=== PATIENT | female | born 1945 | race Caucasian/White ===

== ENCOUNTER → 2018-08-26 16:43 | Outpatient (CLI) | payer MEDICARE, SELFPAY ==
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
== END ==
PROVIDERS: PCP Family Medicine; Visit Provider Hospitalist
DX: M17.12 Unilateral primary osteoarthritis, left knee (principal)
CPT/HCPCS: 73562

== ENCOUNTER → 2018-09-11 07:11 | Outpatient (CLI) | payer MEDICARE, SELFPAY ==
[2018-09-11 08:54] LABS: Add Manual Diff / Slide Review NO; Basophils Absolute Auto 100 /uL (0-100); Eosinophils Absolute Auto 400 /uL (0-450); Eosinophils Percent Auto 5.5 % (2-4); Hematocrit 39.3 % (36-46); Hemoglobin 13.3 g/dL (12.0-16.0); Lymphocytes Absolute Auto 2800 /uL (1100-4500); Lymphocytes Percent Auto 37.2 % (25-40); Mean Corpuscular HGB Conc 33.7 % (30-36); Mean Corpuscular Hemoglobin 29.9 PG (26-34); Mean Corpuscular Volume 88.9 fL (80-100); Monocytes Absolute Auto 500 /uL (0-900); Monocytes Percent Auto 6.4 % (3-14); Neutrophils Absolute Auto 3700 /uL (1500-7000); Neutrophils Percent Auto 49.9 % (50-75); Platelet Count 232 X10^3/uL (150-400); Red Blood Cell Count 4.43 X10^6/uL (4.0-5.2); Red Cell Distribution Width 14.3 % (11.6-14.8); White Blood Cell Count 7.4 X10^3/uL (4.5-11.0)
[2018-09-11 09:24] LABS: Alanine Aminotransferase 23 IU/L (9-52); Albumin 4.3 g/dL (3.5-5.0); Albumin Globulin Ratio 1.7 (1.0-2.8); Alkaline Phosphatase 97 U/L (38-126); Aspartate Aminotransferase 24 IU/L (14-36); BUN Creatinine Ratio 24.4 (6-22); Bilirubin Total 0.4 mg/dL (0.2-1.3); Blood Urea Nitrogen 22 mg/dL (7-17); Calcium 8.8 mg/dL (8.4-10.2); Carbon Dioxide 26 mmol/L (22-32); Chloride 106 mmol/L (98-107); Cholesterol 158 mg/dL (140-199); Estimated Glomerular Filt Rate > 60.0 mL/min (>60); Globulin 2.6 g/dL (1.7-4.1); Glucose 108 mg/dL (80-110); HDL Cholesterol 65 mg/dL (40-60); HEMOLYSIS < 15 (0-50); LDL Cholesterol Calculated 69 mg/dL (<100); Potassium 4.2 mmol/L (3.4-5.1); Sodium 140 mmol/L (137-145); Total Protein 6.9 g/dL (6.3-8.2); Triglycerides 122 mg/dL (35-150)
[2018-09-11 09:56] LABS: Thyroid Stimulating Hormone 1.62 uIU/mL (0.47-4.68)
[2018-09-11 11:22] LABS: Creatinine Urine Random 110.6 mg/dL
[2018-09-11 11:27] LABS: Microalbumi Creatinin Ratio Ur 6.3 ug/mg CR (<30); Microalbumin Urine Random 0.7 mg/dL (0-1.6)
== END ==
PROVIDERS: PCP Family Medicine; Visit Provider Family Medicine
DX: E03.9 Hypothyroidism, unspecified (principal); E78.5 Hyperlipidemia, unspecified; I10 Essential (primary) hypertension
CPT/HCPCS: 36415; 80053; 80061; 82043; 82570; 84443; 85025

== ENCOUNTER → 2018-09-16 14:41 | Outpatient (CLI) | payer MEDICARE, SELFPAY ==
--- NOTE | 2018-09-16 14:42 | DI.RAD.S_ITS ---
PROCEDURE: XR HAND LT MIN 3V INDICATIONS: left hand pain, base of 5th finger TECHNIQUE: 3 views of the hand(s) acquired. COMPARISON: None. FINDINGS: Bones: Impacted mildly displaced fracture of the distal fifth metacarpal with palmar angulation of the distal fragment. Chronic diffuse interphalangeal joint aeration most pronounced at DIP joint of the middle finger and PIP joint of the ring finger. Bowing deformity suggestive of central erosions, potential erosive osteoarthritis. Soft tissues: No suspicious soft tissue calcifications. 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 Please correlate clinically. Dictated by: Chepe Gee M.D. on 09/16/2018 at 16:11 Approved by: Chepe Gee M.D. on 09/16/2018 at 16:14
== END ==
PROVIDERS: PCP Family Medicine; Visit Provider Family Medicine
DX: M79.642 Pain in left hand (principal); S62.397A Other fracture of fifth metacarpal bone, left hand, initial encounter for closed fracture; M19.042 Primary osteoarthritis, left hand; X58.XXXA Exposure to other specified factors, initial encounter
CPT/HCPCS: 73130

== ENCOUNTER 2018-09-24 15:15 | Outpatient (RCR) | payer MEDICARE, SELFPAY ==
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
--- NOTE | 2018-09-04 16:23 | PT.OPPOC ---
Current Diagnoses Unspecified injury of left lower leg, initial encounter (09/04/18) Provider Visit Care Team Role Provider Type Mere Louis MD Primary Care Provider Physician Specialty: Family Practice Address: [address] [place] [address], [id number] Email: [email or web address] Sanjuana Atkinson MD Attending Provider Physician Specialty: Internal Medicine Address: [address] [place] [address], [id number] Email: Plan Of Care PT-OP-T Assessment and Plan Start: 09/01/18 12:08 Freq: Status: Active Protocol: Document 09/04/18 09:39 LRN (Rec: 09/04/18 10:34 LRN [id number]) Physical Therapy Assessment Goals ROM Impairment decreased knee flexion/ knee extension Automobile Sales Representative Goal (LTG) Pt will be able to reach 2degree for L TKE and 130 degrees for L knee flexion to optimize pt's gait efficiency LTG Duration 12 weeks. ADLs Impairment unable to christina/doff sock/ shoe on L foot. Mcfp Goal (LTG) Pt will be able to christina/ doff her sock/ shoe on L foot in seated position. LTG Duration 8 weeks Gait Impairment impaired gait with 4WW Automobile Sales Representative Goal (LTG) Pt will be able to amb without any AD for a mile in symptoms free. LTG Duration 12 weeks LEFs Impairment low LEFS score Automobile Sales Representative Goal (LTG) Pt will improve her LEFS score to 0% impairment to improve her quality of life LTG Duration 12 weeks Assessment Summary Assessment Pt is s/p fall on her L knee and wrist. Pt has possible bone contusion. Pt has L medial tibia pain inferior to the tibial plateau with forced axial pressure on the L heel indicating possible bony change. Ecchymosis of L monk is resolving with less palpable pain evident. Pt has increased pain complaints at the L knee, probably due to increased activity with water exercises. Pt has pain with weightbearing through the LLE, no complaints of pain in sitting. Will have to monitor closely for possible hairline tibial fracture symptoms. Pt will benefit from the addition of modalities to her Plan of care to decrease pain and inflammation and improve mobility and stability at the L knee and therefore safety with gait. Physical Therapy Plan Frequency and Duration Frequency of Treatment 2x/Week Duration of Treatment 12 Plan of Care Start Date 09/01/18 Plan of Care End Date 12/01/18 Therapeutic Interventions Therapeutic Interventions Aquatic Therapy Balance Training Gait Training Home Exercise Program Joint Mobilizations Manual Therapy Neuromuscular Re-education Patient/Caregiver Education Self-Care/Home Management Soft Tissue Mobilization Taping Therapeutic Activities Therapeutic Exercises Modalities Cold Pack/Ice Massage Electric Stimulation Hot Packs Iontophoresis Ultrasound Next Visit Focus/Plan Next Note Type Treatment Note Next Visit Plan Assess response to K-tape and use of LAWANDA wrap for edema control. Biodex or upright bike Assess ROM knee ROM training (TKE, knee flexion). As tolerated: single leg stance /balance training gait training. Add use of modalities when POC is returned from physician. Plan of Care Dates Plan of Care Start Date 09/01/18 Plan of Care End Date 12/01/18 Please Sign and Return: I have reviewed this Plan of Care and certify that the skilled therapy services above are required to meet the patient?s needs. Physician Signature Date Printed Name and Credentials Clinical Instructor Signature Printed Name and Credentials
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
== END 2018-09-25 09:02 | disposition home or self-care (01) ==
LOC: PHYS 15:15
PROVIDERS: PCP Family Medicine; Visit Provider Hospitalist
DX: S89.92XA Unspecified injury of left lower leg, initial encounter (principal)
CPT/HCPCS: 97110; 97140; 97161; 97535

== ENCOUNTER → 2018-10-08 08:54 | Outpatient (CLI) | payer MEDICARE, SELFPAY ==
--- NOTE | 2018-10-08 08:56 | DI.MG.S_ITS ---
BILATERAL DIGITAL SCREENING MAMMOGRAM 3D/2D WITH CAD: 10/08/2018 CLINICAL: Routine screening. Comparison is made to exams dated: 09/08/2017 mammogram - Located [facility], 05/31/2016 mammogram, 04/28/2015 mammogram, 04/11/2014 mammogram, and 03/30/2013 mammogram - [facility]. The tissue of both breasts is heterogeneously dense. This may lower the sensitivity of mammography. Current study was also evaluated with a Computer Aided Detection (CAD) system. There is an irregular mass with a spiculated margin in the right breast at 12 o'clock middle to posterior depth. Finding is best noted on tomographic CC slice 47 and MLO slice 49. There are a grouped calcifications in the left breast superior lateral quadrant middle depth. IMPRESSION: INCOMPLETE: NEEDS ADDITIONAL IMAGING EVALUATION 1) The irregular spiculated mass in the right breast at 12 o'clock middle to posterior depth is indeterminate. Additional views with possible ultrasound are recommended. 2) The grouped calcifications in the left breast superior lateral quadrant middle depth are indeterminate. Magnification views as well as additional views with possible ultrasound are recommended. This exam was interpreted at Station ID: [id number]. NOTE: For mammograms, a report in lay terms will be sent to the patient. Approximately 15% of breast malignancies will not be visualized mammographically. In the management of a palpable breast mass, a negative mammogram must not discourage biopsy of a clinically suspicious lesion. Electronically Signed By: Jt Grande M.D. ecl/:10/08/2018 13:18:29 letter sent: Additional Imaging Needed ACR BI-RADS Category 0: Incomplete [id number]
== END ==
PROVIDERS: PCP Family Medicine; Visit Provider Family Medicine
DX: Z12.31 Encounter for screening mammogram for malignant neoplasm of breast (principal)
CPT/HCPCS: 77063; 77067

== ENCOUNTER → 2018-10-22 14:11 | Outpatient (CLI) | payer MEDICARE, SELFPAY ==
--- NOTE | 2018-10-22 14:12 | DI.MG.S_ITS ---
BILATERAL DIGITAL DIAGNOSTIC MAMMOGRAM 3D/2D WITH ADDITIONAL VIEWS: 10/22/2018 CLINICAL: Additional evaluation requested from prior study. Comparison is made to exams dated: 10/08/2018 mammogram and 09/08/2017 mammogram - [facility]. The tissue of both breasts is heterogeneously dense. This may lower the sensitivity of mammography. There is an irregular low density mass with a spiculated margin in the right breast at 12 o'clock middle depth. This persists in additional views. There is architectural distortion associated with the mass. There are grouped amorphous coarse calcifications in the left breast at 12 o'clock middle depth. There is architectural distortion associated with the calcifications. There also is an irregular asymmetry with an obscured margin in the left breast at 12 o'clock middle depth. No other significant masses or calcifications are seen in either breast. IMPRESSION: INCOMPLETE: NEEDS ADDITIONAL IMAGING EVALUATION The irregular low density mass in the right breast at 12 o'clock middle depth is indeterminate. An ultrasound is recommended. This was performed immediately following this exam. The grouped amorphous coarse calcifications and irregular asymmetry in the left breast at 12 o'clock middle depth are indeterminate. An ultrasound is recommended. This was performed immediately following this exam. This exam was interpreted at Station ID: [id number]. NOTE: For mammograms, a report in lay terms will be sent to the patient. Approximately 15% of breast malignancies will not be visualized mammographically. In the management of a palpable breast mass, a negative mammogram must not discourage biopsy of a clinically suspicious lesion. Electronically Signed By: Gale wiley/:10/22/2018 17:17:18 ACR BI-RADS Category 0: Incomplete [id number]
--- NOTE | 2018-10-22 14:12 | DI.US.S_ITS ---
ULTRASOUND OF LEFT BREAST: 10/22/2018 CLINICAL: Additional evaluation requested from prior study. Comparison is made to exams dated: 10/22/2018 mammogram, 10/08/2018 mammogram, and 09/08/2017 mammogram - [facility]. Color flow and real-time ultrasound of the left breast were performed. Camacho scale images of the real-time examination were reviewed. There is 1.4 cm x 1.3 cm x 1.2 cm irregular mass with an angular margin in the left breast at 12 o'clock posterior depth 6 cm from the nipple. This irregular mass is hypoechoic and heterogeneously echogenic with an echogenic boundary. This correlates with mammography findings of asymmetry. Color flow imaging demonstrates that there is increased vascularity. There also is 4.9 cm x 0.3 cm x 0.4 cm lymph node with uniform cortical thickening in the left axillary tail. This lymph node displays fatty hilum. Color flow imaging demonstrates that there is no increase in vascularity. IMPRESSION: SUSPICIOUS OF MALIGNANCY The 1.4 cm x 1.3 cm x 1.2 cm irregular mass in the left breast at 12 o'clock posterior depth is at an intermediate suspicion for malignancy. An ultrasound guided biopsy is recommended. The 4.9 cm x 0.3 cm x 0.4 cm lymph node with uniform cortical thickening in the left axillary tail is at a low suspicion for malignancy. An ultrasound guided biopsy is recommended. Findings and recommendations were discussed with the patient by Dr Gordon at time of exam. This exam was interpreted at Station ID: [id number]. Electronically Signed By: Gale wiley/:10/22/2018 17:28:28 letter sent: Biopsy Required Ultrasound BI-RADS: 4b Suspicious abnormality - intermediate suspicion of malignancy
--- NOTE | 2018-10-22 14:12 | DI.US.S_ITS ---
ULTRASOUND OF RIGHT BREAST AND AXILLA: 10/22/2018 CLINICAL: Additional evaluation requested from prior study. Comparison is made to exams dated: 10/22/2018 mammogram, 10/08/2018 mammogram, and 09/08/2017 mammogram - [facility]. Color flow and real-time ultrasound of the right breast axilla were performed. Camacho scale images of the real-time examination were reviewed. There is 0.7 cm x 0.6 cm x 0.9 cm irregular mass with a spiculated margin in the right breast at 12 o'clock middle depth 7 cm from the nipple. This irregular mass is hyperechoic and heterogeneously echogenic with posterior acoustic shadowing. This correlates with mammography findings. There is associated architectural distortion. Color flow imaging demonstrates that there is increased vascularity. No abnormalities were seen sonographically in the right axilla. IMPRESSION: SUSPICIOUS OF MALIGNANCY The 0.7 cm x 0.6 cm x 0.9 cm irregular mass in the right breast is at a moderate suspicion for malignancy. An ultrasound guided biopsy is recommended. Findings and recommendations were discussed with the patient by Dr Gordon at time of exam. This exam was interpreted at Station ID: [id number]. Electronically Signed By: Gale wiley/:10/22/2018 17:22:12 letter sent: Biopsy Required Ultrasound BI-RADS: 4c Suspicious abnormality - moderate concern but not classic for malignancy
== END ==
PROVIDERS: PCP Family Medicine; Visit Provider Family Medicine
DX: R92.8 Other abnormal and inconclusive findings on diagnostic imaging of breast (principal); N63.10 Unspecified lump in the right breast, unspecified quadrant; N63.20 Unspecified lump in the left breast, unspecified quadrant
CPT/HCPCS: 76642; 77066; G0279

== ENCOUNTER 2018-10-29 14:08 | Day surgery (SDC) | payer MEDICARE, SELFPAY ==
[2018-10-29] VITALS (7 sets, daily range): BP systolic 114–138; BP diastolic 60–94; PULSE 64–87; RESP 14–16; TEMP 36.1–37.2; O2SAT 95–99; BMI 31.1
[2018-10-29] MEDS: SODIUM CHLORIDE 0.9% 1,000 ML 200 ML IV (14:44)
--- NOTE | 2018-10-29 15:05 | PM.HP.1 ---
History of Present Illness Date Patient Seen: 10/29/18 Time Patient Seen: 15:05 Chief complaint: [id number] Narrative: 73yo F for low risk screening colonoscopy. Last around 7-8 years ago, does not recall findings of polyps or any issues. Was getting every 5 years at some point due to brother having polyps but no CRC in family. No new or alarm symptoms in patient. Patient History Medical History Anxiety (Chronic ~1994) Depression (Chronic) Osteoarthritis (Chronic ~2004) Osteopenia (Chronic ~2007) Chicken pox (Resolved ~1951) Plantar warts (Resolved ~1954) Surgical History Anesthesia (Resolved) Status post cholecystectomy (~2003) Status post hysterectomy (~1991) Family History Father High cholesterol Mother Emphysema lung Social History marital status: number of children: 2 household members: none lives independently: Yes caregiver/support person: No housing: house Smoking Status: Never smoker second hand exposure: No alcohol intake: current substance use type: does not use Family & Social History Family History Father High cholesterol Mother Emphysema lung Social History: household members none lives independently Yes caregiver/support person No Tobacco & Substance use: Smoking Status Never smoker alcohol intake current Meds Home Medications Medication Instructions Recorded Confirmed Type BIOTIN/CA/CA PANTOTHENATE/CR3 1 tab PO Q DAY #0 04/08/11 10/29/18 History (CENTRUM SILVER) IBUPROFEN (#IBUPRIN) 200 mg PO PRN #0 04/08/11 10/29/18 History MELATONIN (#MELATONIN) 1 mg PO HS #0 12/16/11 10/29/18 History VITAMIN D (Vitamin D3) 1,000 unit PO QDAY #0 05/07/12 10/29/18 History amitriptyline 10 mg tablet 10 mg PO HS #90 tab 09/16/18 10/29/18 Rx atorvastatin 10 mg tablet 10 mg PO HS #90 tab 09/16/18 10/29/18 Rx levothyroxine 88 mcg tablet 88 mcg PO QAM #90 tab 09/16/18 10/29/18 Rx metoprolol succinate ER 25 mg 25 mg PO QDAY #90 tab 09/16/18 10/29/18 Rx tablet,extended release 24 hr omeprazole 40 mg capsule,delayed 40 mg PO QDAY #90 cap 09/16/18 10/29/18 Rx release sertraline 50 mg tablet 50 mg PO DAILY #90 tab 09/16/18 10/29/18 Rx lorazepam [Ativan] 0.5 mg PO QDAY PRN 10/29/18 10/29/18 History Allergies Allergy/AdvReac Type Severity Reaction Status Date / Time naproxen [From ALEVE] Allergy Mild syncope Verified 10/29/18 14:34 episodes Review of Systems Constitutional Constitutional: Reports as per HPI Exam Vital Signs (past 8 hours): - 10/29/18 14:44 Temperature 99.0 F Pulse Rate 87 Respiratory Rate 15 Blood Pressure 134/77 Pulse Oximetry 96 Oxygen Delivery Method Room Air Narrative Exam Narrative: AAO, NAD, overweight female EOMI, MMM, no scleral icterus unlabored RA soft, nt/nd MAEW visible skin dry and intact Assessment & Plan (1) Screening for colorectal cancer: Current visit: Yes Status: Acute Assessment & Plan narrative: - low risk screening colonoscopy --> all R/B/A discussed and pt wishes to proceed
[2018-10-29] MEDS: fentaNYL 250 MCG/5 ML INJ IV (15:37)
[2018-10-29] MEDS: MIDAZOLAM 5 MG/5 ML VIAL IV (15:37)
--- NOTE | 2018-10-29 15:55 | PM.OP.ENDO ---
Operative Date/Time/Diagnoses Date of procedure: 10/29/18 Time of procedure: 15:55 Pre-op diagnosis: Screening for colorectal cancer Post-op diagnosis: same Procedure & Clinicians Study performed: Low risk screening colonoscopy Same procedure as scheduled: Yes Indications: 73yo F for low risk screening colonoscopy. Surgeon: Radha Baker Procedure Notes SCOAP/Timeout: 1512 Procedure in detail: After obtaining informed consent, the patient was brought to the GI suite and placed in the left lateral decubitus position on the examination table. After placement of appropriate monitors, the patient was given incremental doses of Versed and Fentanyl until an appropriate level of sedation was achieved. A time out was held per SCOAP protocol. A pediatric scope was used from the start due to patient's history of hysterectomy. A digital rectal examination was performed and did not reveal any masses or obstructing lesions. The colonoscope was gently passed into the patient's anus and the entire colon navigated to the level of the cecum with minimal difficulty. Prep was adequate. Once in the cecum, the scope was slowly withdrawn being sure to go before and beyond all mucosal folds and prominences as able to get a thorough examination. No masses or polyps are noted. No other remarkable findings. At the level of the rectal vault, the scope was retroflexed and the internal anal canal was examined. The scope was straightened and air aspirated from the colon. The instrument was removed from the patient's body and the procedure was concluded. The patient was allowed to awaken from sedation without difficulty and taken to the post-anesthesia care unit in good condition. Scope withdrawal time: 10 min Sedation minutes: 33 Specimen(s): none sent Complications: none Impression: normal colonoscopy Recommendations: Colonscopy in 10 years Follow up: as needed Disposition: PACU
== END 2018-10-29 16:36 | disposition home or self-care (01) ==
PROVIDERS: PCP Family Medicine; Visit Provider Surgery
PROC: 0DJD8ZZ Inspection of Lower Intestinal Tract, Via Natural or Artificial Opening Endoscopic (ICD-10-PCS; CPT 45378; principal; 2018-10-29 15:00)
DX: Z12.11 Encounter for screening for malignant neoplasm of colon (principal)
CPT/HCPCS: G0121; 99152; 99153; J2250; J3010

== ENCOUNTER → 2018-10-30 12:36 | Outpatient (CLI) | payer MEDICARE, SELFPAY ==
--- NOTE | 2018-10-30 | PATH_ITS ---
[facility] Accession Number: [id number] . 01 Material submitted: . breast - RIGHT BREAST MASS 12:00 . 01 Clinical history: . RIGHT BREAST MASS 12:00 7CM FROM NIPPLE . 02 Diagnosis: Right Breast, Mass at 12 o'clock, Core Needle Biopsies: Invasive mammary carcinoma with the following features: 1. Darrin grade 1 of 3 (intermediate tubule formation, low nuclear pleomorphism, low mitotic rate). 2. Greatest linear extent: 2 mm. 3. 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 4. Microcalcifications: Present in association with invasive carcinoma. 5. Lymph-vascular invasion: Not identified. 6. Prognostic markers: Will be performed and the results reported as an addendum. MRV/11/02/2018 . 02 Comment: As part of routine billing and quality technician, Dr. Russell also reviewed this case and agrees with the diagnosis. Dr. Peters called Dr. Louis to discuss results on 11/02/2018. . 02 Electronically signed: . Radha Peters MD, Pathologist NPI- [id number] . 01 Gross description: . Received one formalin-filled container labeled with the patient's name and designated right breast mass 12 o'clock 7 cm from nipple. The specimen is received with a plastic filter in the container, sample loose in container and consists of multiple fragments of tissue and blood which aggregate to 2.0 x 2.0 x 0.2 cm. The specimen is filtered, wrapped, and entirely submitted in one cassette. Collection date: 10/30/2018. Collection time per container: 2:04 pm. Total fixation time: 12 hours up to 24. ([id number]) /FRR . 02 Pathologist provided ICD-10: C50.911 . 02 CPT . 081174, U47886, C04588 Performed at: 01 [facility] [address] [place] [address], [place], [place] [id number] MD Amos Bangura MD Phone: [phone] Performed at: 02 [facility] [address] [place], [place] [id number] MD Radha Peters MD Phone: [phone]
--- NOTE | 2018-10-30 | DI.US.S_ITS ---
ULTRASOUND OF LEFT BREAST AND AXILLA: 10/30/2018 CLINICAL: Patient came in today for ultrasound biopsy of left breast mass 12:00 6cm from nipple. Mass not visible, biopsy canceled. Patient came in today for ultrasound biopsy of left axillary node biopsy. Node not vislble, biopsy canceled. Comparison is made to exams dated: 10/22/2018 ultrasound, 10/22/2018 mammogram, 10/08/2018 mammogram, 09/08/2017 mammogram - [facility], and 05/31/2016 mammogram - [facility]. Color flow and real-time ultrasound of the left breast axilla were performed on the areas of interest. Camacho scale images of the real-time examination were reviewed. The breast tissue is homogeneous fibroglandular in the left breast. In the axillary tail/axilla region of the left breast an area of suspected enlarged lymph note is found to not represent a lymph node, and the anticipated biopsy for today in that area was cancelled. At the 12:00 area of the left breast no lesion was found in the region of prior US concern 10/22/18. Anticipated biopsy in this area was cancelled. No abnormalities were seen sonographically in the left breast or the left axilla. IMPRESSION: NEGATIVE There is no sonographic evidence of malignancy. No left sided axillary node enlargement is present. Also, no lesion is present at the 12:00 position 6 cm from the nipple in the second area of previous left sided sonographic concern. This exam was interpreted at Station ID: [id number]. Electronically Signed By: Alexy Norman M.D. [facility]/:10/30/2018 16:27:33 Ultrasound BI-RADS: 1 Negative
--- NOTE | 2018-10-30 | DI.MG.S_ITS ---
UNILATERAL RIGHT DIGITAL DIAGNOSTIC MAMMOGRAM POST-NEEDLE BIOPSY: 10/30/2018 CLINICAL: Right breast mass. Comparison is made to exams dated: 10/22/2018 ultrasound, 10/22/2018 mammogram, and 10/08/2018 mammogram - [facility]. The tissue of right breast is heterogeneously dense. This may lower the sensitivity of mammography. There is a marker clip in the appropriate position in the right breast at 11 o'clock middle depth. This marker clip placement is at the biopsy site. IMPRESSION: POST PROCEDURE MAMMOGRAM FOR MARKER PLACEMENT There was a successful marker clip placement in the right breast middle depth. This exam was interpreted at Station ID: [id number]. NOTE: For mammograms, a report in lay terms will be sent to the patient. Approximately 15% of breast malignancies will not be visualized mammographically. In the management of a palpable breast mass, a negative mammogram must not discourage biopsy of a clinically suspicious lesion. Electronically Signed By: Alexy Norman M.D. sdh/:10/30/2018 16:31:13 ACR BI-RADS Category Post-procedure mammogram for marker placement
--- NOTE | 2018-10-30 13:03 | DI.US.S_ITS ---
ULTRASOUND GUIDED BIOPSY RIGHT BREAST USING VACUUM DEVICE WITH MARKING DEVICE INSERTED AND POST MAMMOGRAPHIC IMAGIN10/30/2018 CLINICAL: Right breast mass. PATIENT CONSENT: Risks (minor bleeding, infection, vasovagal reaction and repeat procedure), benefits and alternatives were explained to the patient and written informed consent was obtained. Correlation is made to exams dated: 10/22/2018 ultrasound, 10/22/2018 mammogram, 10/08/2018 mammogram, and 09/08/2017 mammogram - [facility]. An ultrasound guided biopsy using real-time ultrasound was performed for the concerning 0.5 cm x 0.4 cm x 0.6 cm circumscribed irregular shaped mass located in the right breast at 11 o'clock middle depth. This was described on the previous ultrasound report. The skin was prepped in the usual manner. Local anesthetic was administered to the access site. A skin ector was made in the breast. The abnormality was approached from the lateral aspect. A 13 gauge biopsy needle was placed adjacent to the abnormality under ultrasound guidance. Once the needle was documented to be in the correct location, five specimens were obtained using the Mammotome biopsy system. The patient received additional local anesthetic during the procedure. A Vision marker clip was inserted into the biopsy cavity. A skin closure strip and a sterile dressing were applied to the access site. Post procedure mammographic imaging demonstrates the location device at the targeted area and partial removal of the abnormality. The specimens were sent to the laboratory for pathological analysis. IMPRESSION: ULTRASOUND GUIDED BIOPSY MALIGNANT Ultrasound guided biopsy of the 0.5 cm x 0.4 cm x 0.6 cm mass in the right breast at 11 o'clock middle depth was successful. Pathology indicates malignant invasive mammary carcinoma with micro-calcifications present. Pathology results are concordant with imaging findings. This exam was interpreted at Station ID: [id number]. Alexy crespo,jacinto/:11/05/2018 14:12:26
== END ==
PROVIDERS: PCP Family Medicine; Visit Provider Family Medicine
DX: C50.411 Malignant neoplasm of upper-outer quadrant of right female breast (principal); N63.20 Unspecified lump in the left breast, unspecified quadrant; Z17.0 Estrogen receptor positive status [ER+]
CPT/HCPCS: 19083; 76642; 77065

== ENCOUNTER → 2019-05-21 09:37 | Outpatient (CLI) | payer MEDICARE, SELFPAY | PROVIDERS: PCP Family Medicine; Visit Provider Family Medicine | DX: M85.88 Other specified disorders of bone density and structure, other site (principal); Z78.0 Asymptomatic menopausal state; E07.9 Disorder of thyroid, unspecified; Z85.3 Personal history of malignant neoplasm of breast; Z90.722 Acquired absence of ovaries, bilateral; Z82.62 Family history of osteoporosis | CPT/HCPCS: 77080 ==

== ENCOUNTER → 2020-01-20 08:54 | Outpatient (CLI) | payer MEDICARE, SELFPAY ==
[2020-01-20 10:30] LABS: Creatinine Urine Random 208.4 mg/dL
[2020-01-20 10:35] LABS: Microalbumi Creatinin Ratio Ur 18.2 ug/mg CR (<30); Microalbumin Urine Random 3.8 mg/dL (0-1.6)
[2020-01-20 13:28] LABS: Alanine Aminotransferase 33 IU/L (<35); Albumin 3.9 g/dL (3.5-5.0); Albumin Globulin Ratio 1.6 (1.0-2.8); Alkaline Phosphatase 68 U/L (38-126); Aspartate Aminotransferase 32 IU/L (14-36); BUN Creatinine Ratio 16.8 (6-22); Bilirubin Total 0.5 mg/dL (0.2-1.3); Blood Urea Nitrogen 17 mg/dL (7-17); Calcium 8.8 mg/dL (8.4-10.2); Carbon Dioxide 28 mmol/L (22-32); Chloride 104 mmol/L (98-107); Cholesterol 150 mg/dL (140-199); Estimated Glomerular Filt Rate 53.6 mL/min (>60); Globulin 2.4 g/dL (1.7-4.1); Glucose 96 mg/dL (80-110); HDL Cholesterol 74 mg/dL (40-60); HEMOLYSIS < 15 (0-50); LDL Cholesterol Calculated 48 mg/dL (<100); Potassium 4.3 mmol/L (3.4-5.1); Sodium 138 mmol/L (137-145); Total Protein 6.3 g/dL (6.3-8.2); Triglycerides 139 mg/dL (35-150)
[2020-01-20 13:54] LABS: Thyroid Stimulating Hormone 0.905 uIU/mL (0.47-4.68)
== END ==
PROVIDERS: PCP Family Medicine; Referring Provider Family Medicine; Visit Provider Family Medicine
DX: E03.9 Hypothyroidism, unspecified (principal); I10 Essential (primary) hypertension
CPT/HCPCS: 36415; 80053; 80061; 82043; 82570; 84443

== ENCOUNTER → 2020-07-04 10:43 | Outpatient (CLI) | payer MEDICARE, SELFPAY ==
--- NOTE | 2020-07-04 10:44 | DI.US.S_ITS ---
PROCEDURE: US CAROTID DOPPLER BI INDICATIONS: pulsing right ear TECHNIQUE: Color and pulse Doppler interrogation was performed of both carotid systems, with image documentation and velocity measurements. COMPARISON: [facility], CT, HEAD WITHOUT CONTRAST, 10/07/2016, 4:42. FINDINGS: Stenosis calculations are based on SRU (Society of Radiologists in Ultrasound) criteria. Right side: Brachial blood pressure: 134/78 mm Hg. Common carotid artery peak systolic velocity: 104 cm/sec. Internal carotid artery peak systolic velocity: 94 cm/sec. Internal carotid artery end diastolic velocity: 32 cm/sec. External carotid artery peak systolic velocity: 91 cm/sec. ICA/CCA peak systolic ratio: 0.9 Camacho scale imaging description: No significant abnormality is seen. Percent internal carotid artery stenosis: Less than 50% by velocity criteria. Vertebral artery: Flow direction is antegrade. Left side: Brachial blood pressure: 133/81 mm Hg. Common carotid artery peak systolic velocity: 90 cm/sec. Internal carotid artery peak systolic velocity: 243 cm/sec. Internal carotid artery end diastolic velocity: 79 cm/sec. External carotid artery peak systolic velocity: 88 cm/sec. ICA/CCA peak systolic ratio: 2.7 Camacho scale imaging description: Atherosclerotic changes can be seen. Percent internal carotid artery stenosis: Greater than 70%. Vertebral artery: Flow direction is antegrade. IMPRESSION: There is a stenosis seen of the left internal carotid artery, which is greater than 70% by velocity criteria. Dictated by: Negro Frias M.D. on 07/04/2020 at 11:42 Approved by: Negro Frias M.D. on 07/04/2020 at 11:44
== END ==
PROVIDERS: PCP Family Medicine; Referring Provider Family Medicine; Visit Provider Family Medicine
DX: H93.A1 Pulsatile tinnitus, right ear (principal); I65.23 Occlusion and stenosis of bilateral carotid arteries
CPT/HCPCS: 93880

== ENCOUNTER → 2020-11-21 07:57 | Outpatient (CLI) | payer MEDICARE, SELFPAY ==
[2020-11-21 10:50] LABS: Cholesterol 153 mg/dL (140-199); HDL Cholesterol 70 mg/dL (40-60); LDL Cholesterol Calculated 61 mg/dL (<100); Triglycerides 111 mg/dL (35-150)
== END ==
PROVIDERS: PCP Family Medicine; Referring Provider Internal Medicine Cardiovascular Disease; Visit Provider Internal Medicine Cardiovascular Disease
DX: E78.5 Hyperlipidemia, unspecified (principal)
CPT/HCPCS: 36415; 80061

== ENCOUNTER → 2021-03-27 12:33 | Outpatient (CLI) | payer MEDICARE, SELFPAY ==
[2021-03-27 13:23] LABS: Appearance Urine UA CLEAR; Bilirubin Urine UA NEGATIVE (NEGATIVE); Color Urine UA YELLOW; Glucose Urine UA NEGATIVE (Negative); Ketones Urine UA NEGATIVE (NEGATIVE); Leukocyte Esterase Urine UA TRACE (NEGATIVE); Nitrite Urine UA POSITIVE (Negative); Occult Blood Urine UA 3+ (Negative); Protein Urine UA TRACE (Negative); Urobilinogen Urine UA 0.2 E.U./dL (0.2)
[2021-03-27 13:51] LABS: RBC Urine 30-100/HPF (0-5/HPF); WBC Urine 5-10/HPF (0-5/HPF)
[2021-03-27 13:52] LABS: Bacteria Urine Many (>30); Culture Indicated Urine Specimen Cultured; Squamous Epithelial Cell Urine 0-1 /HPF (0-5/HPF)
== END ==
PROVIDERS: PCP Family Medicine; Referring Provider Family Medicine; Visit Provider Family Medicine
DX: R30.0 Dysuria (principal)
CPT/HCPCS: 36415; 81003; 81015; 87077; 87086; 87186

== ENCOUNTER → 2021-04-05 11:02 | Outpatient (CLI) | payer MEDICARE, SELFPAY ==
[2021-04-05 12:21] LABS: Hemoglobin A1C% w Est Avg Glu 5.8 % (4.0-6.0)
[2021-04-05 12:41] LABS: Alanine Aminotransferase 36 IU/L (<35); Albumin 4.2 g/dL (3.5-5.0); Albumin Globulin Ratio 1.6 (1.0-2.8); Alkaline Phosphatase 64 U/L (38-126); Aspartate Aminotransferase 33 IU/L (14-36); Bilirubin Total 0.5 mg/dL (0.2-1.3); Blood Urea Nitrogen 19 mg/dL (7-17); Calcium 9.1 mg/dL (8.4-10.2); Carbon Dioxide 30 mmol/L (22-32); Chloride 102 mmol/L (98-107); Estimated Glomerular Filt Rate 54.1 mL/min (>60); Globulin 2.7 g/dL (1.7-4.1); Glucose 85 mg/dL (80-110); HEMOLYSIS < 15 (0-50); Potassium 4.3 mmol/L (3.4-5.1); Sodium 139 mmol/L (137-145); Total Protein 6.9 g/dL (6.3-8.2)
[2021-04-05 13:16] LABS: Thyroid Stimulating Hormone 1.21 uIU/mL (0.47-4.68)
[2021-04-05 17:13] LABS: Microalbumin Urine Random 9.8 mg/dL (0-1.6)
[2021-04-05 17:16] LABS: Creatinine Urine Random 85.8 mg/dL; Microalbumi Creatinin Ratio Ur 114.2 ug/mg CR (<30)
== END ==
PROVIDERS: PCP Family Medicine; Referring Provider Family Medicine; Visit Provider Family Medicine
DX: E03.9 Hypothyroidism, unspecified (principal); R73.9 Hyperglycemia, unspecified; I10 Essential (primary) hypertension
CPT/HCPCS: 36415; 80053; 82043; 82570; 83036; 84443

== ENCOUNTER → 2021-04-05 15:16 | Outpatient (CLI) | payer MEDICARE, SELFPAY ==
[2021-04-05 16:18] LABS: Appearance Urine UA CLEAR; Bilirubin Urine UA NEGATIVE (NEGATIVE); Color Urine UA YELLOW; Glucose Urine UA NEGATIVE (Negative); Ketones Urine UA NEGATIVE (NEGATIVE); Leukocyte Esterase Urine UA TRACE (NEGATIVE); Nitrite Urine UA NEGATIVE (Negative); Occult Blood Urine UA 2+ (Negative); Protein Urine UA NEGATIVE (Negative); Urobilinogen Urine UA 0.2 E.U./dL (0.2)
[2021-04-05 16:31] LABS: Bacteria Urine Many (>30); Culture Indicated Urine Specimen Cultured; RBC Urine 5-10/HPF (0-5/HPF); Squamous Epithelial Cell Urine 0-1 /HPF (0-5/HPF); WBC Urine 5-10/HPF (0-5/HPF)
== END ==
PROVIDERS: PCP Family Medicine; Referring Provider Family Medicine; Visit Provider Family Medicine
DX: R30.0 Dysuria (principal); E03.9 Hypothyroidism, unspecified; I10 Essential (primary) hypertension; R73.9 Hyperglycemia, unspecified
CPT/HCPCS: 36415; 80053; 81001; 82043; 82570; 83036; 84443; 87077; 87086; 87186

== ENCOUNTER → 2021-04-14 10:46 | Outpatient (CLI) | payer MEDICARE, SELFPAY ==
[2021-04-14 12:21] LABS: Appearance Urine UA CLEAR; Bilirubin Urine UA NEGATIVE (NEGATIVE); Color Urine UA YELLOW; Glucose Urine UA NEGATIVE (Negative); Ketones Urine UA NEGATIVE (NEGATIVE); Leukocyte Esterase Urine UA NEGATIVE (NEGATIVE); Nitrite Urine UA NEGATIVE (Negative); Occult Blood Urine UA NEGATIVE (Negative); Protein Urine UA NEGATIVE (Negative); Urobilinogen Urine UA 0.2 E.U./dL (0.2)
[2021-04-14 12:42] LABS: Bacteria Urine None Seen; Culture Indicated Urine Cult Not Indicated; RBC Urine None Seen (0-5/HPF); Urine Comments Microscopic Normal; WBC Urine None Seen (0-5/HPF); pH Urine UA 5.5 (4.5-8.0)
== END ==
PROVIDERS: PCP Family Medicine; Referring Provider Family Medicine; Visit Provider Family Medicine
DX: N39.0 Urinary tract infection, site not specified (principal)
CPT/HCPCS: 81001

== ENCOUNTER 2021-07-13 09:45 | Outpatient (RCR) | payer MEDICARE, SELFPAY ==
--- NOTE | 2021-05-09 15:18 | PT.OIE ---
Current Diagnoses Other specified disorders of muscle (05/09/21) Frequency of micturition (05/09/21) Urgency of urination (05/09/21) Past Medical History (Last Updated 08/01/20 @ 13:29 by Mere Louis MD) Anxiety (~1994) Chicken pox (~1951) Depression Hx of breast cancer Insomnia Osteoarthritis (~2004) Osteopenia (~2007) Plantar warts (~1954) Stenosis of carotid artery Past Surgical History (Last Reviewed 10/29/18 @ 15:07 by Radha Baker MD) Anesthesia Status post cholecystectomy (~2003) Status post hysterectomy (~1991) Visit Care Team Role Provider Type Mere Louis MD Attending Provider Physician Family Provider Primary Care Provider Referring Provider Specialty: Family Practice Address: [address] [place] [address], [facility] Email: [email or web address] Physical Therapy Initial Evaluation PT-OP-A Visit Information Start: 05/08/21 08:27 Freq: Status: Active Protocol: Document 05/09/21 10:15 AMB (Rec: 05/09/21 10:16 AMB [id number]) Out-Patient Physical Therapy Visit Information Visit Information Visit Type Initial Evaluation Visit Start Time 09:45 Visit Stop Time 10:30 Total Visit Minutes 45 Visit Number 1 PT-OP-B Current Condition Start: 05/08/21 08:27 Freq: Status: Active Protocol: Document 05/09/21 09:45 AMB (Rec: 05/09/21 10:15 AMB [id number]) Current Condition History of Current Condition Onset Date a couple years gradually worsening Current Complaints Stress urinary incontinence and urgency. History of Current Condition Extended laughing (can cause a larger leak), sneezing, coughing also can cause smaller leaks. Urgency with going to the bathroom, especially with sit to stand if has been sitting for a while. Did have 2 UTIs this year. History of hysterectomy - vaginal. 2 live births with vaginal deliveries. 1st had to have emergency forceps delivery. Chronic constipation- straining currently. Treatment Goals Patient/Caregiver Goals Reduce leaking with extended laughing, urgency Prior Functional Status Baseline Function- ADL's Independent Baseline Function- Mobility Independent Personal Factors Other Personal Factors That May Effect hx vaginal hysterectomy, Therapy/Recovery osteopenia, back pain PT-OP-I Pelvic Floor Start: 05/08/21 08:27 Freq: Status: Active Protocol: Document 05/09/21 09:45 AMB (Rec: 05/09/21 11:16 AMB [id number]) Pelvic Floor Assessment Urine Pelvic Floor Surgery Yes: vaginal hysterectomy Urinary Symptoms Urge Sensation Leakage Size Small Leakage Cause Cough,Sneeze,Urge Voiding Frequency every 2 hours Nocturia 2 Urine Pad Type Panty Liner Bowel Bowel Symptoms Constipation Prolapse Cystocele Grade 1 Perineal Descent Resting Absent Bearing Absent Contraction Ability Voluntary Contraction Weak Voluntary Relaxation Weak Manual Muscle Testing Left 2 Manual Muscle Testing Right 2 Manual Muscle Testing Anterior 2 Manual Muscle Testing Posterior 2 Muscle Endurance (Seconds) 5 Number of Quick Contractions In 10 4 Seconds Comments Pelvic Floor Comments Pt had pain with insertion into vaginal canal to perform assessment, but once inserted did not have continued pain PT-OP-T Assessment and Plan Start: 05/08/21 08:27 Freq: Status: Active Protocol: Document 05/09/21 09:45 AMB (Rec: 05/09/21 11:16 AMB [id number]) Physical Therapy Assessment Rehab Potential Rehabilitation Potential Good Evaluation Complexity Number of Personal Factors/Comorbidities 1-2 Number of Body Systems Impaired 1-2 Clinical Presentation at Evaluation Stable Impairments Impairments Functional Activities,Strength Goals Two Impairment Pelvic floor strength Short Term Goal (STG) Sisi will contract her pelvic floor in standing for 10 seconds. STG Duration 4 weeks One Impairment Continence Short Term Goal (STG) Sisi will laugh without leaking urine. STG Duration 4 weeks Radio Television Announcer Goal (LTG) Sisi will move from sit to stand and walk to the bathroom without urgency. LTG Duration 8 weeks Assessment Summary Assessment Elena attends PT with a few year history of urinary leaking, progressively worsening. Mostly stress incontinence sx, especially with laughing, but does have urgency as well, although not monica urge incontinence. Also has current chronic constipation. Did have pelvic floor weakness, but was able to engage pelvic floor muscles . Would benefit from pelvic floor physical therapy for strengthening, in additon to urge reduction strategies, and constipation education. Physical Therapy Plan Frequency and Duration Frequency of Treatment 1x/Week Duration of Treatment 8 weeks Plan of Care Start Date 05/09/21 Plan of Care End Date 07/04/21 Therapeutic Interventions Therapeutic Interventions Home Exercise Program,Manual Therapy,Neuromuscular Re- education,Self-Care/Home Management,Therapeutic Activities,Therapeutic Exercises Modalities Biofeedback,Cold Pack/Ice Massage,Electric Stimulation Next Visit Focus/Plan Next Note Type Treatment Note Next Visit Plan consider sEMG, seated progression of strengthening
--- NOTE | 2021-05-09 15:18 | PT.OPPOC ---
Physical, Occupational & Speech Therapy At [facility] Current Diagnoses Other specified disorders of muscle (05/09/21) Frequency of micturition (05/09/21) Urgency of urination (05/09/21) Visit Care Team Role Provider Type Mere Louis MD Attending Provider Physician Family Provider Primary Care Provider Referring Provider Specialty: Family Practice Address: [address] [place] [address], [place], [address] Email: [email or web address] Plan Of Care PT-OP-T Assessment and Plan Start: 05/08/21 08:27 Freq: Status: Active Protocol: Document 05/09/21 09:45 AMB (Rec: 05/09/21 11:16 AMB [id number]) Physical Therapy Assessment Rehab Potential Rehabilitation Potential Good Evaluation Complexity Number of Personal Factors/Comorbidities 1-2 Number of Body Systems Impaired 1-2 Clinical Presentation at Evaluation Stable Impairments Impairments Functional Activities,Strength Goals Two Impairment Pelvic floor strength Short Term Goal (STG) Sisi will contract her pelvic floor in standing for 10 seconds. STG Duration 4 weeks One Impairment Continence Short Term Goal (STG) Sisi will laugh without leaking urine. STG Duration 4 weeks Photography Teacher Goal (LTG) Sisi will move from sit to stand and walk to the bathroom without urgency. LTG Duration 8 weeks Assessment Summary Assessment Elena attends PT with a few year history of urinary leaking, progressively worsening. Mostly stress incontinence sx, especially with laughing, but does have urgency as well, although not monica urge incontinence. Also has current chronic constipation. Did have pelvic floor weakness, but was able to engage pelvic floor muscles . Would benefit from pelvic floor physical therapy for strengthening, in additon to urge reduction strategies, and constipation education. Physical Therapy Plan Frequency and Duration Frequency of Treatment 1x/Week Duration of Treatment 8 weeks Plan of Care Start Date 05/09/21 Plan of Care End Date 07/04/21 Therapeutic Interventions Therapeutic Interventions Home Exercise Program,Manual Therapy,Neuromuscular Re- education,Self-Care/Home Management,Therapeutic Activities,Therapeutic Exercises Modalities Biofeedback,Cold Pack/Ice Massage,Electric Stimulation Next Visit Focus/Plan Next Note Type Treatment Note Next Visit Plan consider sEMG, seated progression of strengthening Plan of Care Dates Plan of Care Start Date 05/09/21 Plan of Care End Date 07/04/21 Electronically Signed by: Elizabeth Mireles, SARANYA 05/09/21 [id number] Please Sign and Return: I have reviewed this Plan of Care and certify that the skilled therapy services above are required to meet the patient?s needs. Physician Signature Date Printed Name and Credentials Clinical Instructor Signature Printed Name and Credentials
--- NOTE | 2021-05-24 08:08 | PT-OP ANOTE ---
Pt same day cancelled because of the snow.
--- NOTE | 2021-05-31 12:40 | PT.OTN ---
Current Diagnoses Other specified disorders of muscle (05/31/21) Frequency of micturition (05/31/21) Urgency of urination (05/31/21) Physical Therapy Treatment Note PT-OP-A Visit Information Start: 05/08/21 08:27 Freq: Status: Active Protocol: Document 05/31/21 09:45 AMB (Rec: 05/31/21 12:39 AMB [id number]) Out-Patient Physical Therapy Visit Information Visit Information Visit Type Treatment Note Visit Start Time 09:45 Visit Stop Time 10:30 Total Visit Minutes 45 Visit Number 2 PT-OP-B Current Condition Start: 05/08/21 08:27 Freq: Status: Active Protocol: Document 05/09/21 09:45 AMB (Rec: 05/09/21 10:15 AMB [id number]) Current Condition History of Current Condition Onset Date a couple years gradually worsening Current Complaints Stress urinary incontinence and urgency. History of Current Condition Extended laughing (can cause a larger leak), sneezing, coughing also can cause smaller leaks. Urgency with going to the bathroom, especially with sit to stand if has been sitting for a while. Did have 2 UTIs this year. History of hysterectomy - vaginal. 2 live births with vaginal deliveries. 1st had to have emergency forceps delivery. Chronic constipation- straining currently. Treatment Goals Patient/Caregiver Goals Reduce leaking with extended laughing, urgency Prior Functional Status Baseline Function- ADL's Independent Baseline Function- Mobility Independent Personal Factors Other Personal Factors That May Effect hx vaginal hysterectomy, Therapy/Recovery osteopenia, back pain PT-OP-C Subjective Start: 05/08/21 08:27 Freq: Status: Active Protocol: Document 05/31/21 09:45 AMB (Rec: 05/31/21 12:39 AMB [id number]) OP-PT Subjective Patient Comments Patient Comments Elena has been working on the strengthening, it is hard to do the long holds, she feels like she's jackson her glutes a lot with those. Forgot about the abdominal massage. Feels some urgency after 3-4 hours. PT-OP-I Pelvic Floor Start: 05/08/21 08:27 Freq: Status: Active Protocol: Document 05/09/21 09:45 AMB (Rec: 05/09/21 11:16 AMB [id number]) Pelvic Floor Assessment Urine Pelvic Floor Surgery Yes: vaginal hysterectomy Urinary Symptoms Urge Sensation Leakage Size Small Leakage Cause Cough,Sneeze,Urge Voiding Frequency every 2 hours Nocturia 2 Urine Pad Type Panty Liner Bowel Bowel Symptoms Constipation Prolapse Cystocele Grade 1 Perineal Descent Resting Absent Bearing Absent Contraction Ability Voluntary Contraction Weak Voluntary Relaxation Weak Manual Muscle Testing Left 2 Manual Muscle Testing Right 2 Manual Muscle Testing Anterior 2 Manual Muscle Testing Posterior 2 Muscle Endurance (Seconds) 5 Number of Quick Contractions In 10 4 Seconds Comments Pelvic Floor Comments Pt had pain with insertion into vaginal canal to perform assessment, but once inserted did not have continued pain PT-OP-Q Treatments Start: 05/08/21 08:27 Freq: Status: Active Protocol: Document 05/31/21 09:45 AMB (Rec: 05/31/21 12:39 AMB [id number]) Neuro Re-Education Treatment Other Activities 1 Details sEMG Comments in hooklying- quick flicks and long holds- long holds challenging but improved with cues to elevate with LA. See assessment section. PT-OP-T Assessment and Plan Start: 05/08/21 08:27 Freq: Status: Active Protocol: Document 05/31/21 10:14 AMB (Rec: 05/31/21 10:28 AMB [id number]) Physical Therapy Assessment Assessment Summary Assessment Maximum of 10, average of 5. Challenging to hold for full 10 seconds, quick flicks looked good. Does feel like she is using her glutes too much. Was able to insert sensor without pain.
--- NOTE | 2021-06-06 10:32 | PT.OTN ---
Current Diagnoses Other specified disorders of muscle (06/06/21) Frequency of micturition (06/06/21) Urgency of urination (06/06/21) Physical Therapy Treatment Note PT-OP-A Visit Information Start: 05/08/21 08:27 Freq: Status: Active Protocol: Document 06/06/21 10:27 AMB (Rec: 06/06/21 10:29 AMB [id number]) Out-Patient Physical Therapy Visit Information Visit Information Visit Type Treatment Note Visit Start Time 09:45 Visit Stop Time 10:30 Total Visit Minutes 45 Visit Number 3 PT-OP-B Current Condition Start: 05/08/21 08:27 Freq: Status: Active Protocol: Document 05/09/21 09:45 AMB (Rec: 05/09/21 10:15 AMB [id number]) Current Condition History of Current Condition Onset Date a couple years gradually worsening Current Complaints Stress urinary incontinence and urgency. History of Current Condition Extended laughing (can cause a larger leak), sneezing, coughing also can cause smaller leaks. Urgency with going to the bathroom, especially with sit to stand if has been sitting for a while. Did have 2 UTIs this year. History of hysterectomy - vaginal. 2 live births with vaginal deliveries. 1st had to have emergency forceps delivery. Chronic constipation- straining currently. Treatment Goals Patient/Caregiver Goals Reduce leaking with extended laughing, urgency Prior Functional Status Baseline Function- ADL's Independent Baseline Function- Mobility Independent Personal Factors Other Personal Factors That May Effect hx vaginal hysterectomy, Therapy/Recovery osteopenia, back pain PT-OP-C Subjective Start: 05/08/21 08:27 Freq: Status: Active Protocol: Document 06/06/21 10:27 AMB (Rec: 06/06/21 10:29 AMB [id number]) OP-PT Subjective Patient Comments Patient Comments Elena has not noticed any leaking, but also has not had any big coughing issues. PT-OP-I Pelvic Floor Start: 05/08/21 08:27 Freq: Status: Active Protocol: Document 05/09/21 09:45 AMB (Rec: 05/09/21 11:16 AMB [id number]) Pelvic Floor Assessment Urine Pelvic Floor Surgery Yes: vaginal hysterectomy Urinary Symptoms Urge Sensation Leakage Size Small Leakage Cause Cough,Sneeze,Urge Voiding Frequency every 2 hours Nocturia 2 Urine Pad Type Panty Liner Bowel Bowel Symptoms Constipation Prolapse Cystocele Grade 1 Perineal Descent Resting Absent Bearing Absent Contraction Ability Voluntary Contraction Weak Voluntary Relaxation Weak Manual Muscle Testing Left 2 Manual Muscle Testing Right 2 Manual Muscle Testing Anterior 2 Manual Muscle Testing Posterior 2 Muscle Endurance (Seconds) 5 Number of Quick Contractions In 10 4 Seconds Comments Pelvic Floor Comments Pt had pain with insertion into vaginal canal to perform assessment, but once inserted did not have continued pain PT-OP-Q Treatments Start: 05/08/21 08:27 Freq: Status: Active Protocol: Document 06/06/21 10:27 AMB (Rec: 06/06/21 10:29 AMB [id number]) Therapeutic Exercises Sitting Exercises rolling in/rolling out Sitting Exercise Name #3 t band Reps/Minutes 10x2 ea Neuro Re-Education Treatment Other Activities 1 Details sEMG Comments in hooklying- quick flicks and long holds- long holds challenging but improved with cues to elevate with LA. See assessment section. PT-OP-T Assessment and Plan Start: 05/08/21 08:27 Freq: Status: Active Protocol: Document 06/06/21 09:46 AMB (Rec: 06/06/21 10:17 AMB [id number]) Physical Therapy Assessment Goals Two Impairment Pelvic floor strength Short Term Goal (STG) Sisi will contract her pelvic floor in standing for 10 seconds. STG Duration 4 weeks One Impairment Continence Short Term Goal (STG) Sisi will laugh without leaking urine. STG Duration 4 weeks Penitentiary Goal (LTG) Sisi will move from sit to stand and walk to the bathroom without urgency. LTG Duration 8 weeks Assessment Summary Assessment Elena is doing well with quick flicks, long holds are harder , felt good contraction with roll in, roll out was harder. Encouraged to continue with long holds and given written HEP for roll in roll outs today. Physical Therapy Plan Next Visit Focus/Plan Next Note Type Treatment Note Next Visit Plan consider sEMG, seated progression of strengthening, work into standing next visit
--- NOTE | 2021-06-19 15:20 | PT.OTN ---
Current Diagnoses Other specified disorders of muscle (06/19/21) Frequency of micturition (06/19/21) Urgency of urination (06/19/21) Physical Therapy Treatment Note PT-OP-A Visit Information Start: 05/08/21 08:27 Freq: Status: Active Protocol: Document 06/19/21 11:18 AMB (Rec: 06/19/21 11:52 AMB [id number]) Out-Patient Physical Therapy Visit Information Visit Information Visit Type Treatment Note Visit Start Time 11:15 Visit Stop Time 12:00 Total Visit Minutes 45 Visit Number 4 PT-OP-B Current Condition Start: 05/08/21 08:27 Freq: Status: Active Protocol: Document 05/09/21 09:45 AMB (Rec: 05/09/21 10:15 AMB [id number]) Current Condition History of Current Condition Onset Date a couple years gradually worsening Current Complaints Stress urinary incontinence and urgency. History of Current Condition Extended laughing (can cause a larger leak), sneezing, coughing also can cause smaller leaks. Urgency with going to the bathroom, especially with sit to stand if has been sitting for a while. Did have 2 UTIs this year. History of hysterectomy - vaginal. 2 live births with vaginal deliveries. 1st had to have emergency forceps delivery. Chronic constipation- straining currently. Treatment Goals Patient/Caregiver Goals Reduce leaking with extended laughing, urgency Prior Functional Status Baseline Function- ADL's Independent Baseline Function- Mobility Independent Personal Factors Other Personal Factors That May Effect hx vaginal hysterectomy, Therapy/Recovery osteopenia, back pain PT-OP-C Subjective Start: 05/08/21 08:27 Freq: Status: Active Protocol: Document 06/19/21 11:18 AMB (Rec: 06/19/21 11:52 AMB [id number]) OP-PT Subjective Patient Comments Patient Comments Pt noticing some feeling of L sciatica wondering if roll out exercises are contributing. PT-OP-I Pelvic Floor Start: 05/08/21 08:27 Freq: Status: Active Protocol: Document 05/09/21 09:45 AMB (Rec: 05/09/21 11:16 AMB [id number]) Pelvic Floor Assessment Urine Pelvic Floor Surgery Yes: vaginal hysterectomy Urinary Symptoms Urge Sensation Leakage Size Small Leakage Cause Cough,Sneeze,Urge Voiding Frequency every 2 hours Nocturia 2 Urine Pad Type Panty Liner Bowel Bowel Symptoms Constipation Prolapse Cystocele Grade 1 Perineal Descent Resting Absent Bearing Absent Contraction Ability Voluntary Contraction Weak Voluntary Relaxation Weak Manual Muscle Testing Left 2 Manual Muscle Testing Right 2 Manual Muscle Testing Anterior 2 Manual Muscle Testing Posterior 2 Muscle Endurance (Seconds) 5 Number of Quick Contractions In 10 4 Seconds Comments Pelvic Floor Comments Pt had pain with insertion into vaginal canal to perform assessment, but once inserted did not have continued pain PT-OP-Q Treatments Start: 05/08/21 08:27 Freq: Status: Active Protocol: Document 06/19/21 11:15 AMB (Rec: 06/27/21 15:20 AMB [id number]) Therapeutic Exercises Sitting Exercises rolling in/rolling out Sitting Exercise Name #3 t band Reps/Minutes 10x2 ea Comments paused due to sciatica, did encourage roll ins Standing Exercises 2 Standing Exercise Name standing quick flicks/long holds in different foot positions 1 Standing Exercise Name mini squat with PF Comments 10- full sit to stand was challenging PT-OP-T Assessment and Plan Start: 05/08/21 08:27 Freq: Status: Active Protocol: Document 06/19/21 11:18 AMB (Rec: 06/19/21 11:52 AMB [id number]) Physical Therapy Assessment Goals Two Impairment Pelvic floor strength Short Term Goal (STG) Sisi will contract her pelvic floor in standing for 10 seconds. STG Duration 4 weeks One Impairment Continence Short Term Goal (STG) Sisi will laugh without leaking urine. STG Duration 4 weeks Dairy Chemist Goal (LTG) Sisi will move from sit to stand and walk to the bathroom without urgency. LTG Duration 8 weeks Assessment Summary Assessment Elena did well with PT today, urgency is improving with PT. Will see for one more visit to make sure that improvements continue into the longer term . Physical Therapy Plan Next Visit Focus/Plan Next Note Type Treatment Note Next Visit Plan consider sEMG, seated progression of strengthening, work into standing next visit
--- NOTE | 2021-07-13 15:33 | PT.OTN ---
Current Diagnoses Other specified disorders of muscle (07/13/21) Frequency of micturition (07/13/21) Urgency of urination (07/13/21) Physical Therapy Treatment Note PT-OP-A Visit Information Start: 05/08/21 08:27 Freq: Status: Active Protocol: Document 07/13/21 09:45 AMB (Rec: 07/13/21 10:24 AMB [id number]) Out-Patient Physical Therapy Visit Information Visit Information Visit Type Treatment Note Visit Start Time 09:45 Visit Stop Time 10:30 Total Visit Minutes 45 Visit Number 5 PT-OP-B Current Condition Start: 05/08/21 08:27 Freq: Status: Active Protocol: Document 05/09/21 09:45 AMB (Rec: 05/09/21 10:15 AMB [id number]) Current Condition History of Current Condition Onset Date a couple years gradually worsening Current Complaints Stress urinary incontinence and urgency. History of Current Condition Extended laughing (can cause a larger leak), sneezing, coughing also can cause smaller leaks. Urgency with going to the bathroom, especially with sit to stand if has been sitting for a while. Did have 2 UTIs this year. History of hysterectomy - vaginal. 2 live births with vaginal deliveries. 1st had to have emergency forceps delivery. Chronic constipation- straining currently. Treatment Goals Patient/Caregiver Goals Reduce leaking with extended laughing, urgency Prior Functional Status Baseline Function- ADL's Independent Baseline Function- Mobility Independent Personal Factors Other Personal Factors That May Effect hx vaginal hysterectomy, Therapy/Recovery osteopenia, back pain PT-OP-C Subjective Start: 05/08/21 08:27 Freq: Status: Active Protocol: Document 07/13/21 09:45 AMB (Rec: 07/13/21 10:24 AMB [id number]) OP-PT Subjective Patient Comments Patient Comments Pt has had some increased symptoms as she has not done as many exercises due to her recent cold. PT-OP-I Pelvic Floor Start: 05/08/21 08:27 Freq: Status: Active Protocol: Document 05/09/21 09:45 AMB (Rec: 05/09/21 11:16 AMB [id number]) Pelvic Floor Assessment Urine Pelvic Floor Surgery Yes: vaginal hysterectomy Urinary Symptoms Urge Sensation Leakage Size Small Leakage Cause Cough,Sneeze,Urge Voiding Frequency every 2 hours Nocturia 2 Urine Pad Type Panty Liner Bowel Bowel Symptoms Constipation Prolapse Cystocele Grade 1 Perineal Descent Resting Absent Bearing Absent Contraction Ability Voluntary Contraction Weak Voluntary Relaxation Weak Manual Muscle Testing Left 2 Manual Muscle Testing Right 2 Manual Muscle Testing Anterior 2 Manual Muscle Testing Posterior 2 Muscle Endurance (Seconds) 5 Number of Quick Contractions In 10 4 Seconds Comments Pelvic Floor Comments Pt had pain with insertion into vaginal canal to perform assessment, but once inserted did not have continued pain PT-OP-Q Treatments Start: 05/08/21 08:27 Freq: Status: Active Protocol: Document 07/13/21 09:45 AMB (Rec: 07/13/21 10:30 AMB [id number]) Therapeutic Exercises Standing Exercises 2 Standing Exercise Name standing quick flicks/long holds in different foot positions 1 Standing Exercise Name mini squat with PF Comments 10- full sit to stand was challenging PT-OP-T Assessment and Plan Start: 05/08/21 08:27 Freq: Status: Active Protocol: Document 07/13/21 09:45 AMB (Rec: 07/13/21 10:24 AMB [id number]) Physical Therapy Assessment Goals Two Impairment Pelvic floor strength Short Term Goal (STG) Sisi will contract her pelvic floor in standing for 10 seconds. STG Duration MET One Impairment Continence Short Term Goal (STG) Sisi will laugh without leaking urine. STG Duration NOT MEASURED Retirement Goal (LTG) Sisi will move from sit to stand and walk to the bathroom without urgency. LTG Duration MET Assessment Summary Assessment Elena had a difficult last few weeks with sciatica and then getting a cold, but overall feels ready for discharge. She had stopped doing her exercises and had a return of symptoms, so now realizes the importance of doing her exercises every day. We spent a large portion of her appointment discussing how she can incorporate her exercises into her routine, and we agree that doing her strenghtening exercises every time she washes her hands during the day might be a good option for her. Physical Therapy Plan Frequency and Duration Frequency of Treatment 1x/Week Duration of Treatment 2 weeks Plan of Care Start Date 07/04/21 Plan of Care End Date 07/18/21 Therapeutic Interventions Therapeutic Interventions Home Exercise Program,Manual Therapy,Neuromuscular Re- education,Self-Care/Home Management,Therapeutic Activities,Therapeutic Exercises Modalities Biofeedback,Cold Pack/Ice Massage,Electric Stimulation Discharge Physical Therapy Discharge Reasons Goals Met
--- NOTE | 2021-07-13 15:33 | PT.OPPOC ---
Physical, Occupational & Speech Therapy At [facility] Current Diagnoses Other specified disorders of muscle (07/13/21) Frequency of micturition (07/13/21) Urgency of urination (07/13/21) Visit Care Team Role Provider Type Mere Louis MD Attending Provider Physician Family Provider Primary Care Provider Referring Provider Specialty: Family Practice Address: [address] [place] [address], [place], [address] Email: [email or web address] Plan Of Care PT-OP-T Assessment and Plan Start: 05/08/21 08:27 Freq: Status: Active Protocol: Document 07/13/21 09:45 AMB (Rec: 07/13/21 10:24 AMB [id number]) Physical Therapy Assessment Goals Two Impairment Pelvic floor strength Short Term Goal (STG) Sisi will contract her pelvic floor in standing for 10 seconds. STG Duration MET One Impairment Continence Short Term Goal (STG) Sisi will laugh without leaking urine. STG Duration NOT MEASURED Detention Goal (LTG) Sisi will move from sit to stand and walk to the bathroom without urgency. LTG Duration MET Assessment Summary Assessment Elena had a difficult last few weeks with sciatica and then getting a cold, but overall feels ready for discharge. She had stopped doing her exercises and had a return of symptoms, so now realizes the importance of doing her exercises every day. We spent a large portion of her appointment discussing how she can incorporate her exercises into her routine, and we agree that doing her strengthening exercises every time she washes her hands during the day might be a good option for her. Physical Therapy Plan Frequency and Duration Frequency of Treatment 1x/Week Duration of Treatment 2 weeks Plan of Care Start Date 07/04/21 Plan of Care End Date 07/18/21 Therapeutic Interventions Therapeutic Interventions Home Exercise Program,Manual Therapy,Neuromuscular Re- education,Self-Care/Home Management,Therapeutic Activities,Therapeutic Exercises Modalities Biofeedback,Cold Pack/Ice Massage,Electric Stimulation Discharge Physical Therapy Discharge Reasons Goals Met Plan of Care Dates Plan of Care Start Date 07/04/21 Plan of Care End Date 07/18/21 Electronically Signed by: Elizabeth Mireles, PT 07/13/21 [id number] Please Sign and Return: I have reviewed this Plan of Care and certify that the skilled therapy services above are required to meet the patient?s needs. Physician Signature Date Printed Name and Credentials Clinical Instructor Signature Printed Name and Credentials
== END 2021-07-16 09:32 | disposition home or self-care (01) ==
LOC: PHYS 09:45
PROVIDERS: Family Provider Family Medicine; PCP Family Medicine; Referring Provider Family Medicine; Visit Provider Family Medicine
DX: M62.89 Other specified disorders of muscle (principal); R35.0 Frequency of micturition; R39.15 Urgency of urination
CPT/HCPCS: 97110; 97112; 97161

== ENCOUNTER → 2021-09-22 12:13 | Outpatient (CLI) | payer MEDICARE, SELFPAY ==
[2021-09-22 13:27] LABS: Appearance Urine UA SL CLOUDY; Bilirubin Urine UA NEGATIVE (NEGATIVE); Color Urine UA YELLOW; Glucose Urine UA NEGATIVE (Negative); Ketones Urine UA NEGATIVE (NEGATIVE); Leukocyte Esterase Urine UA 1+ (NEGATIVE); Nitrite Urine UA POSITIVE (Negative); Occult Blood Urine UA 3+ (Negative); Protein Urine UA TRACE (Negative); Urobilinogen Urine UA 0.2 E.U./dL (0.2)
[2021-09-22 13:38] LABS: Amorphous Sediment Urine 1+; Bacteria Urine Many (>30); Culture Indicated Urine Specimen Cultured; RBC Urine 5-10/HPF (0-5/HPF); WBC Urine 5-10/HPF (0-5/HPF)
== END ==
PROVIDERS: Family Provider Family Medicine; PCP Family Medicine; Referring Provider Family Medicine; Visit Provider Family Medicine
DX: N39.0 Urinary tract infection, site not specified (principal)
CPT/HCPCS: 81001; 87077; 87086; 87186

== ENCOUNTER → 2021-10-04 11:19 | Outpatient (CLI) | payer MEDICARE, SELFPAY ==
[2021-10-04 12:00] LABS: Appearance Urine UA CLEAR; Bilirubin Urine UA NEGATIVE (NEGATIVE); Color Urine UA YELLOW; Glucose Urine UA NEGATIVE (Negative); Ketones Urine UA NEGATIVE (NEGATIVE); Leukocyte Esterase Urine UA NEGATIVE (NEGATIVE); Nitrite Urine UA NEGATIVE (Negative); Occult Blood Urine UA NEGATIVE (Negative); Protein Urine UA NEGATIVE (Negative); Specific Gravity Urine UA 1.015 (1.000-1.035); Urobilinogen Urine UA 0.2 E.U./dL (0.2)
[2021-10-04 13:15] LABS: pH Urine UA 6.5 (4.5-8.0)
[2021-10-04 13:21] LABS: Culture Indicated Urine Cult Not Indicated; RBC Urine 0-1/HPF (0-5/HPF); Squamous Epithelial Cell Urine None Seen (0-5/HPF); WBC Urine None Seen (0-5/HPF)
[2021-10-04 21:40] LABS: Bacteria Urine None Seen
== END ==
PROVIDERS: Family Provider Family Medicine; PCP Family Medicine; Referring Provider Family Medicine; Visit Provider Family Medicine
DX: N39.0 Urinary tract infection, site not specified (principal)
CPT/HCPCS: 81001

== ENCOUNTER → 2022-03-14 09:15 | Outpatient (CLI) | payer MEDICARE, SELFPAY ==
[2022-03-14 09:57] LABS: Appearance Urine UA CLOUDY; Bilirubin Urine UA NEGATIVE (NEGATIVE); Color Urine UA BROWN; Glucose Urine UA NEGATIVE (Negative); Ketones Urine UA NEGATIVE (NEGATIVE); Leukocyte Esterase Urine UA 1+ (NEGATIVE); Nitrite Urine UA NEGATIVE (Negative); Occult Blood Urine UA 3+ (Negative); Protein Urine UA 2+ (Negative); Urobilinogen Urine UA 0.2 E.U./dL (0.2)
[2022-03-14 10:16] LABS: Bacteria Urine Moderate (10-30); Culture Indicated Urine Specimen Cultured; RBC Urine >100/HPF (0-5/HPF); Squamous Epithelial Cell Urine 1-5 /HPF (0-5/HPF); WBC Urine 5-10/HPF (0-5/HPF)
== END ==
PROVIDERS: Family Provider Family Medicine; PCP Family Medicine; Referring Provider Family Medicine; Visit Provider Family Medicine
DX: N39.0 Urinary tract infection, site not specified (principal); R30.0 Dysuria
CPT/HCPCS: 81001; 87077; 87086; 87186

== ENCOUNTER → 2022-04-24 08:01 | Outpatient (CLI) | payer MEDICARE, SELFPAY ==
[2022-04-24 10:06] LABS: Alanine Aminotransferase 36 IU/L (<35); Albumin 3.9 g/dL (3.5-5.0); Albumin Globulin Ratio 1.7 (1.0-2.8); Alkaline Phosphatase 73 U/L (38-126); Aspartate Aminotransferase 28 IU/L (14-36); BUN Creatinine Ratio 20.2 (6-22); Bilirubin Total 0.5 mg/dL (0.2-1.3); Blood Urea Nitrogen 18 mg/dL (7-17); Calcium 8.7 mg/dL (8.4-10.2); Carbon Dioxide 28 mmol/L (22-32); Chloride 103 mmol/L (98-107); Cholesterol 147 mg/dL (140-199); Estimated Glomerular Filt Rate > 60 mL/min (>60); Globulin 2.3 g/dL (1.7-4.1); Glucose 104 mg/dL (80-110); HDL Cholesterol 70 mg/dL (40-60); HEMOLYSIS < 15 (0-50); LDL Cholesterol Calculated 56 mg/dL (<100); Potassium 4.5 mmol/L (3.4-5.1); Sodium 137 mmol/L (137-145); Total Protein 6.2 g/dL (6.3-8.2); Triglycerides 105 mg/dL (35-150)
[2022-04-24 10:12] LABS: Creatinine Urine Random 163.7 mg/dL
[2022-04-24 10:19] LABS: Microalbumi Creatinin Ratio Ur 6.7 ug/mg CR (<30); Microalbumin Urine Random 1.1 mg/dL (0-1.6)
[2022-04-24 10:55] LABS: Hemoglobin A1C% w Est Avg Glu 5.9 % (4.0-6.0)
[2022-04-24 11:45] LABS: TSH w/ Reflex to FT4 0.91 uIU/mL (0.47-4.68)
== END ==
PROVIDERS: Family Provider Family Medicine; PCP Family Medicine; Referring Provider Family Medicine; Visit Provider Family Medicine
DX: Z13.1 Encounter for screening for diabetes mellitus (principal); I10 Essential (primary) hypertension; E03.9 Hypothyroidism, unspecified
CPT/HCPCS: 36415; 80053; 80061; 82043; 82570; 83036; 84443

== ENCOUNTER → 2022-05-22 10:44 | Outpatient (CLI) | payer MEDICARE, SELFPAY | PROVIDERS: Family Provider Family Medicine; PCP Family Medicine; Referring Provider Family Medicine; Visit Provider Family Medicine | DX: M85.88 Other specified disorders of bone density and structure, other site (principal); Z78.0 Asymptomatic menopausal state; Z90.710 Acquired absence of both cervix and uterus | CPT/HCPCS: 77080 ==

== ENCOUNTER → 2022-10-07 12:19 | Outpatient (CLI) | payer MEDICARE, SELFPAY ==
[2022-10-07 12:53] LABS: Appearance Urine UA SL CLOUDY; Bilirubin Urine UA NEGATIVE (NEGATIVE); Color Urine UA YELLOW; Glucose Urine UA NEGATIVE (Negative); Ketones Urine UA NEGATIVE (NEGATIVE); Leukocyte Esterase Urine UA 2+ (NEGATIVE); Nitrite Urine UA NEGATIVE (Negative); Occult Blood Urine UA 3+ (Negative); Protein Urine UA NEGATIVE (Negative); Urobilinogen Urine UA 0.2 E.U./dL (0.2)
[2022-10-07 12:56] LABS: pH Urine UA 5.5 (4.5-8.0)
[2022-10-07 13:09] LABS: Bacteria Urine Many (>30); Culture Indicated Urine Specimen Cultured; RBC Urine 5-10/HPF (0-5/HPF); Squamous Epithelial Cell Urine 0-1 /HPF (0-5/HPF); WBC Urine 10-30/HPF (0-5/HPF)
== END ==
PROVIDERS: Family Provider Family Medicine; PCP Family Medicine; Referring Provider Family Medicine; Visit Provider Family Medicine
DX: R30.0 Dysuria (principal); R31.9 Hematuria, unspecified
CPT/HCPCS: 81001; 87077; 87086; 87186

== ENCOUNTER → 2022-12-24 15:00 | Outpatient (CLI) | payer MEDICARE, SELFPAY ==
--- NOTE | 2022-12-24 15:01 | DI.RAD.S_ITS ---
PROCEDURE: XR LUMBAR SPINE 2-3V INDICATIONS: Low back pain; tight hamstrings; sciatica Right side TECHNIQUE: 3 views of the lumbar spine were acquired. COMPARISON: None. FINDINGS: Bones: 5 [id number] vertebrae are present. Grade 1 anterolisthesis of L4 on L5 and L5 on S1, presumably due to facet arthrosis. Mild to moderate disc height loss at all levels, and facet arthrosis of L3 through S1. Soft tissues: Overlying bowel gas pattern is normal. No suspicious soft tissue calcifications. IMPRESSION: Mild to moderate, multilevel degenerative disc disease and lower lumbar facet arthrosis. Grade 1 anterolisthesis of L4 on L5 and L5 on S1 secondary to facet arthrosis. Dictated by: Trip Reyes M.D. on 12/24/2022 at 19:41 Approved by: Trip Reyes M.D. on 12/24/2022 at 19:42
== END ==
PROVIDERS: Family Provider Family Medicine; PCP Family Medicine; Referring Provider Physician Assistant; Visit Provider Physician Assistant
DX: M47.816 Spondylosis without myelopathy or radiculopathy, lumbar region (principal); M47.817 Spondylosis without myelopathy or radiculopathy, lumbosacral region; M43.16 Spondylolisthesis, lumbar region; M43.17 Spondylolisthesis, lumbosacral region; M54.50 Low back pain, unspecified
CPT/HCPCS: 72100

== ENCOUNTER 2022-12-30 10:30 | Outpatient (RCR) | payer MEDICARE, SELFPAY ==
--- NOTE | 2022-08-26 16:14 | PT.OTN ---
Current Diagnoses Unilateral primary osteoarthritis, right knee (08/26/22) Physical Therapy Treatment Note PT-OP-A Visit Information Start: 08/26/22 08:09 Freq: Status: Active Protocol: Document 08/26/22 09:08 SAK (Rec: 08/26/22 09:49 [facility] [id number]) Out-Patient Physical Therapy Visit Information Visit Information Visit Type Initial Evaluation Visit Start Time 09:02 Visit Stop Time 09:55 Total Visit Minutes 53 Visit Number 1 Evaluation Information Evaluation Date 08/26/22 PT-OP-B Current Condition Start: 08/26/22 08:09 Freq: Status: Active Protocol: Document 08/26/22 09:08 SAK (Rec: 08/26/22 09:49 SAK [id number]) Current Condition History of Current Condition Onset Date 2020 Current Complaints right knee pain History of Current Condition Progressive worsening of right knee pain especially at night , tried pillow between her knees. Pursued treatment when was bad enough to interrupt sleep. Went to orthopedist 2x, had PT with no success different clinic. Had injection, and started water aerobics, has been better since then until recently started to hurt again. No ice or heat, no HEP. Prior Treatments and Tests x-ray in ortho office: arthritis inside of knee. Seated yoga 1x/wk, water aerobics 2x/wk Future Testing and Treatments Planned Return to ortho if PT not helpful. Treatment Goals Patient/Caregiver Goals not be woken up due to pain, squat, do usual exercises for sciatic without pain, go down stairs without pain Prior Functional Status Baseline Function- ADL's Independent Baseline Function- Mobility Independent Baseline Function- Gait indep Baseline Function- Work/School retired Current Functional Impairments (Reported) Functional Limitations- ADL's painful wakens due to sleep Functional Limitations- Recreation/ yoga stretches without pain Hobbies PT-OP-C Subjective Start: 08/26/22 08:09 Freq: Status: Active Protocol: Document 08/26/22 09:08 SAK (Rec: 08/26/22 16:34 SAK [id number]) OP-PT Pain Assessment Pain Assessment Grid Paper Pain Assessment Grid Completed Yes Location right knee Pain Location Details medial joint line Intensity 5 Scale Used Numeric (0 - 10) Description Aching,Tender,Tightness Frequency Frequent Pain Aggravating Factors Position,Activity,Stair Climbing Other Pain Aggravating Factors interrupts sleep PT-OP-E Functional Tests Start: 08/26/22 08:09 Freq: Status: Active Protocol: Document 08/26/22 09:08 SAK (Rec: 08/26/22 16:34 [facility] [id number]) Functional Tests Five Times Sit to Stand Test Score 22 sec Comments dec weight-bearing right PT-OP-G Mobility & Gait Start: 08/26/22 08:09 Freq: Status: Active Protocol: Document 08/26/22 09:08 SAK (Rec: 08/26/22 16:34 [facility] [id number]) OP Gait Assessment Gait Gait Assistance Required: Independent Able to Maintain Weight Bearing Status Yes During Gait Assistive Devices Assistive Device None Gait Deviations General Gait Pattern Ataxic,Decreased Feet Clearance Stair Climbing Evaluation Evaluation Level of Assist On Stairs Independent Devices Stair Climbing Assistive Devices Left Railing,Right Railing Technique/Endurance Stair Climbing Direction Ascend and Descend Stair Climbing Technique Step Over Step Comments Stair Climbing Comments descend painful PT-OP-J Posture/Palpation/Skin Start: 08/26/22 08:09 Freq: Status: Active Protocol: Document 08/26/22 09:08 [facility] (Rec: 08/26/22 09:49 [facility] [id number]) Posture Evaluation Position Standing Knee Posture (L) Neutral,(R) Neutral Patellar Posture (L) Neutral,(R) Neutral Foot Arch (L) Medium Arch,(R) Low Arch Palpation Assessment Location One Palpation Location right knee Palpation Findings Tenderness Palpation Details medial joint line PT-OP-K Range of Motion Start: 08/26/22 08:09 Freq: Status: Active Protocol: Document 08/26/22 09:08 [facility] (Rec: 08/26/22 09:49 [facility] [id number]) Hip Goniometric Range of Motion Hip Right Straight Leg Raise 45 Extension 5 Abduction 30 Internal Rotation 30 External Rotation 50 Comments mod quad tightness Left Straight Leg Raise 45 Extension 5 Abduction 30 Internal Rotation 30 External Rotation 65 Comments mod quad tightness Knee Goniometric Range of Motion Knee marcella Knee ROM WFL Yes PT-OP-L Special Tests Start: 08/26/22 08:09 Freq: Status: Active Protocol: Document 08/26/22 09:08 SAK (Rec: 08/26/22 16:34 [facility] [id number]) Special Tests Knee Special Tests Apley's Compression Test Results -ve Kristin's Test Results -ve Valgus- 25 Degrees Test Results -ve Varus- 0 Degrees Test Results -ve Varus- 25 Degrees Test Results -ve PT-OP-M Strength Start: 08/26/22 08:09 Freq: Status: Active Protocol: Document 08/26/22 09:08 [facility] (Rec: 08/26/22 16:34 [facility] [id number]) Hip Strength Hip Manual Muscle Testing Right Flexion (L2) 4+ Good+ Extension (S1) 4- Good- Abduction 4 Good Adduction 4+ Good+ External Rotation 4- Good- Internal Rotation 4+ Good+ Left Flexion (L2) 4+ Good+ Extension (S1) 4- Good- Abduction 4 Good Adduction 4 Good External Rotation 4- Good- Internal Rotation 4+ Good+ Knee Strength Knee Manual Muscle Testing Right Flexion (S2) 4 Good Extension (L3) 4 Good Left Flexion (S2) 5 Normal Extension (L3) 5 Normal PT-OP-Q Treatments Start: 08/26/22 08:09 Freq: Status: Active Protocol: Document 08/26/22 09:08 [facility] (Rec: 08/26/22 16:34 [facility] [id number]) Manual Therapy Treatment Taping arch Body Location right arch Treatment Focus support Type of Tape Kinesio Tape Skin Inspection intact Comments 1 I strip 75% stretch right knee Body Location med joint line Treatment Focus space correction pain management 75% stretch Type of Tape Kinesio Tape Skin Inspection intact Comments 2 I strips Self-Care/Home Management Treatment Education Patient Education Home Exercise Program,Pain Management Other Education Consider orthotics due to dec arch right affecting right knee alignment PT-OP-R Modalities Start: 08/26/22 08:09 Freq: Status: Active Protocol: Document 08/26/22 09:08 [facility] (Rec: 08/26/22 16:34 [facility] [id number]) Hot Pack/Cold Pack Treatment Cold Pack Location right knee Patient Position Supine Comments LE's on pillow PT-OP-T Assessment and Plan Start: 08/26/22 08:09 Freq: Status: Active Protocol: Document 08/26/22 09:08 [facility] (Rec: 08/26/22 16:34 [facility] [id number]) Physical Therapy Assessment Rehab Potential Rehabilitation Potential Good Evaluation Complexity Number of Personal Factors/Comorbidities 1-2 Number of Body Systems Impaired 3 Clinical Presentation at Evaluation Stable Goals Four Impairment decreased arch right Impairment malalignment right LE contributing to right knee pain Correction Goal (LTG) Patient to obtain orthotics for arch support and improved alignment right LE LTG Duration 10/10/22 Three Impairment weakness right LE Short Term Goal (STG) Patient to be instructed in HEP for purposes of knee flexibility and strengthening STG Duration 09/15/22 Correction Goal (LTG) Patient to be independent and compliant with HEP and demonstrate 5/5 muscle strength, and flexibility of hamstrings to at least 70 deg SLR. LTG Duration 10/10/22 Two Impairment activity tolerance Impairment LEFS score 69% Correction Goal (LTG) Improve LEFS score to at least 80% as measure of improved functional activity tolerance LTG Duration 10/10/22 One Impairment right knee pain Impairment 4/10 pay scale, worst at night and with descending stairs Correction Goal (LTG) Decrease pain to no greater than 2/10 with all usual activities and be able to sleep without being woken due to right knee pain and be able to descend stairs without pain LTG Duration 10/10/22 Assessment Summary Assessment Patient presents to PT with function-limiting right knee pain no known reason. Signs and symptoms consistent with arthritis, with impairments including dec strength and flexibility, decreased arch height right affecting right LE alignment. Feel patient would benefit from PT to improve her strength and flexibility, consider orthotics for improved right arch support and right LE alignment. Also may benefit from modalities to right knee, and manual therapy to quads, IT band, and hamstrings for improved knee function. Recommended water walking for low impact exercise. POC was discussed and patient was in agreement. Physical Therapy Plan Frequency and Duration Frequency of Treatment 2x/Week Duration of treatment (weeks) 6 Plan of Care Start Date 08/26/22 Plan of Care End Date 10/10/22 Therapeutic Interventions Therapeutic Interventions Home Exercise Program,Joint Mobilizations,Manual Therapy, Neuromuscular Re-education, Patient/Caregiver Education, Self-Care/Home Management,Soft Tissue Mobilization,Taping, Therapeutic Activities, Therapeutic Exercises Modalities Cold Pack/Ice Massage,Electric Stimulation,Hot Packs, Infrared Therapy,Ultrasound Next Visit Focus/Plan Next Note Type Treatment Note Next Visit Plan Review HEP, progress as tolerated. Evaluate response to kinesiotape and continue as indicated. Modalities and manual therapy PRN.
--- NOTE | 2022-08-26 16:14 | PT.OPPOC ---
Physical, Occupational & Speech Therapy At [facility] Current Diagnoses Unilateral primary osteoarthritis, right knee (08/26/22) Visit Care Team Role Provider Type Mere Louis MD Family Provider Physician Primary Care Provider Specialty: Family Practice Address: [address] [place] [address], [facility] [place], [address] Email: [email or web address] Alena Ceballos PA-C Attending Provider Advanced Deportation Officer Referring Provider Specialty: Orthopedics Orthopedic Surgery Address: [address] [place] [address], [id number] Email: [email or web address] Plan Of Care PT-OP-T Assessment and Plan Start: 08/26/22 08:09 Freq: Status: Active Protocol: Document 08/26/22 09:08 VANDANA (Rec: 08/26/22 16:34 SAK [id number]) Physical Therapy Assessment Rehab Potential Rehabilitation Potential Good Evaluation Complexity Number of Personal Factors/Comorbidities 1-2 Number of Body Systems Impaired 3 Clinical Presentation at Evaluation Stable Goals Four Impairment decreased arch right Impairment malalignment right LE contributing to right knee pain Alf Goal (LTG) Patient to obtain orthotics for arch support and improved alignment right LE LTG Duration 10/10/22 Three Impairment weakness right LE Short Term Goal (STG) Patient to be instructed in HEP for purposes of knee flexibility and strengthening STG Duration 09/15/22 Alf Goal (LTG) Patient to be independent and compliant with HEP and demonstrate 5/5 muscle strength, and flexibility of hamstrings to at least 70 deg SLR. LTG Duration 10/10/22 Two Impairment activity tolerance Impairment LEFS score 69% [employer] Goal (LTG) Improve LEFS score to at least 80% as measure of improved functional activity tolerance LTG Duration 10/10/22 One Impairment right knee pain Impairment 4/10 pay scale, worst at night and with descending stairs Alf Goal (LTG) Decrease pain to no greater than 2/10 with all usual activities and be able to sleep without being woken due to right knee pain and be able to descend stairs without pain LTG Duration 10/10/22 Assessment Summary Assessment Patient presents to PT with function-limiting right knee pain no known reason. Signs and symptoms consistent with arthritis, with impairments including dec strength and flexibility, decreased arch height right affecting right LE alignment. Feel patient would benefit from PT to improve her strength and flexibility, consider orthotics for improved right arch support and right LE alignment. Also may benefit from modalities to right knee, and manual therapy to quads, IT band, and hamstrings for improved knee function. Recommended water walking for low impact exercise. POC was discussed and patient was in agreement. Physical Therapy Plan Frequency and Duration Frequency of Treatment 2x/Week Duration of treatment (weeks) 6 Plan of Care Start Date 08/26/22 Plan of Care End Date 10/10/22 Therapeutic Interventions Therapeutic Interventions Home Exercise Program,Joint Mobilizations,Manual Therapy, Neuromuscular Re-education, Patient/Caregiver Education, Self-Care/Home Management,Soft Tissue Mobilization,Taping, Therapeutic Activities, Therapeutic Exercises Modalities Cold Pack/Ice Massage,Electric Stimulation,Hot Packs, Infrared Therapy,Ultrasound Next Visit Focus/Plan Next Note Type Treatment Note Next Visit Plan Review HEP, progress as tolerated. Evaluate response to kinesiotape and continue as indicated. Modalities and manual therapy PRN. Plan of Care Dates Plan of Care Start Date 08/26/22 Plan of Care End Date 10/10/22 Electronically Signed by: Randee Mendoza, PT 08/27/22 0809 If you are in agreement with this Plan of Care, please return a signed and dated copy. I have reviewed this Plan of Care and certify that the skilled therapy services above are required to meet the patient?s needs. Physician Signature Date Printed Name and Credentials Clinical Instructor Signature Printed Name and Credentials
--- NOTE | 2022-09-05 12:09 | PT.OTN ---
Current Diagnoses Unilateral primary osteoarthritis, right knee (09/05/22) Physical Therapy Treatment Note PT-OP-A Visit Information Start: 08/26/22 08:09 Freq: Status: Active Protocol: Document 09/05/22 10:33 SAK (Rec: 09/05/22 11:19 [facility] [id number]) Out-Patient Physical Therapy Visit Information Visit Information Visit Type Treatment Note Visit Start Time 10:34 Visit Stop Time 11:24 Total Visit Minutes 53 Visit Number 2 Evaluation Information Evaluation Date 08/26/22 PT-OP-B Current Condition Start: 08/26/22 08:09 Freq: Status: Active Protocol: Document 09/05/22 10:33 SAK (Rec: 09/05/22 11:19 [facility] [id number]) Current Condition History of Current Condition Onset Date 2020 Current Complaints right knee pain History of Current Condition Progressive worsening of right knee pain especially at night , tried pillow between her knees. Pursued treatment when was bad enough to interrupt sleep. Went to orthopedist 2x, had PT with no success different clinic. Had injection, and started water aerobics, has been better since then until recently started to hurt again. No ice or heat, no HEP. Prior Treatments and Tests x-ray in ortho office: arthritis inside of knee. Seated yoga 1x/wk, water aerobics 2x/wk Future Testing and Treatments Planned Return to ortho if PT not helpful. Treatment Goals Patient/Caregiver Goals not be woken up due to pain, squat, do usual exercises for sciatic without pain, go down stairs without pain PT-OP-C Subjective Start: 08/26/22 08:09 Freq: Status: Active Protocol: Document 09/05/22 10:33 SAK (Rec: 09/05/22 11:19 [facility] [id number]) OP-PT Subjective Patient Comments Patient Comments Reports pain right buttock and down outside of right LE for a few days, unsure if possibly due to water aerobics or yoga . It's a problem she has had every year or two, has done PT . Knee pain persists. Not sure if kinesiotape helpful. Purchased looped yoga strap and likes for stretches. Trying to keep shoes on during the day vs going without shoes in the house more during Covid. OP-PT Pain Assessment Location right knee Pain Location Details medial joint line Intensity 5 Scale Used Numeric (0 - 10) Description Aching,Tender,Tightness Frequency Frequent Pain Aggravating Factors Position,Activity,Stair Climbing Other Pain Aggravating Factors interrupts sleep PT-OP-E Functional Tests Start: 08/26/22 08:09 Freq: Status: Active Protocol: Document 08/26/22 09:08 SAK (Rec: 08/26/22 16:34 SAK [id number]) Functional Tests Five Times Sit to Stand Test Score 22 sec Comments dec weight-bearing right PT-OP-G Mobility & Gait Start: 08/26/22 08:09 Freq: Status: Active Protocol: Document 08/26/22 09:08 SAK (Rec: 08/26/22 16:34 [facility] [id number]) OP Gait Assessment Gait Gait Assistance Required: Independent Able to Maintain Weight Bearing Status Yes During Gait Assistive Devices Assistive Device None Gait Deviations General Gait Pattern Ataxic,Decreased Feet Clearance Stair Climbing Evaluation Evaluation Level of Assist On Stairs Independent Devices Stair Climbing Assistive Devices Left Railing,Right Railing Technique/Endurance Stair Climbing Direction Ascend and Descend Stair Climbing Technique Step Over Step Comments Stair Climbing Comments descend painful PT-OP-J Posture/Palpation/Skin Start: 08/26/22 08:09 Freq: Status: Active Protocol: Document 08/26/22 09:08 [facility] (Rec: 08/26/22 09:49 [facility] [id number]) Posture Evaluation Position Standing Knee Posture (L) Neutral,(R) Neutral Patellar Posture (L) Neutral,(R) Neutral Foot Arch (L) Medium Arch,(R) Low Arch Palpation Assessment Location One Palpation Location right knee Palpation Findings Tenderness Palpation Details medial joint line PT-OP-K Range of Motion Start: 08/26/22 08:09 Freq: Status: Active Protocol: Document 08/26/22 09:08 [facility] (Rec: 08/26/22 09:49 [facility] [id number]) Hip Goniometric Range of Motion Hip Right Straight Leg Raise 45 Extension 5 Abduction 30 Internal Rotation 30 External Rotation 50 Comments mod quad tightness Left Straight Leg Raise 45 Extension 5 Abduction 30 Internal Rotation 30 External Rotation 65 Comments mod quad tightness Knee Goniometric Range of Motion Knee marcella Knee ROM WFL Yes PT-OP-L Special Tests Start: 08/26/22 08:09 Freq: Status: Active Protocol: Document 08/26/22 09:08 [facility] (Rec: 08/26/22 16:34 SAK [id number]) Special Tests Knee Special Tests Apley's Compression Test Results -ve Kristin's Test Results -ve Valgus- 25 Degrees Test Results -ve Varus- 0 Degrees Test Results -ve Varus- 25 Degrees Test Results -ve PT-OP-M Strength Start: 08/26/22 08:09 Freq: Status: Active Protocol: Document 08/26/22 09:08 [facility] (Rec: 08/26/22 16:34 [facility] [id number]) Hip Strength Hip Manual Muscle Testing Right Flexion (L2) 4+ Good+ Extension (S1) 4- Good- Abduction 4 Good Adduction 4+ Good+ External Rotation 4- Good- Internal Rotation 4+ Good+ Left Flexion (L2) 4+ Good+ Extension (S1) 4- Good- Abduction 4 Good Adduction 4 Good External Rotation 4- Good- Internal Rotation 4+ Good+ Knee Strength Knee Manual Muscle Testing Right Flexion (S2) 4 Good Extension (L3) 4 Good Left Flexion (S2) 5 Normal Extension (L3) 5 Normal PT-OP-Q Treatments Start: 08/26/22 08:09 Freq: Status: Active Protocol: Document 09/05/22 10:33 [facility] (Rec: 09/05/22 11:19 [facility] [id number]) Cardio Equipment Recumbent Stepper (Sci-Fit) Duration (Minutes) 8 Resistance 1.5 Seat Position 10 Other cues for pushing through heels Gym Equipment Shuttle Recovery Unilateral Squats Details L side Painfree range Resistance 25# Shuttle Recovery Platform Stable Reps/Time 10x Therapeutic Exercises Supine Exercises HS stretch Equipment Used strap Reps/Minutes 2x30 IT band stretch Equipment Used strap Reps/Minutes 2x30 ball squeeze Supine Exercise Name verbal review for HEP (has done previously) SLR Reps/Minutes 10x Comments cues for opp knee bent, push through opp foot, symmetry bridge Reps/Minutes 10x Comments cues for symmetry, LE alignment, core activation Prone Exercises quad stretch Equipment Used strap Reps/Minutes 2X30 Sidelying Exercises HC stretch Equipment Used stair Reps/Minutes 2x5 clamshell Sidelying Exercise Name next session HIP ABDUCTION Reps/Minutes 10X Comments cues for aligntment, core Standing Exercises chair squats Equipment Used mirror Reps/Minutes 10x Comments verbal cues for symmetry, knees bhind toes, hip hinge Self-Care/Home Management Treatment Education Patient Education Home Exercise Program PT-OP-R Modalities Start: 08/26/22 08:09 Freq: Status: Active Protocol: Document 09/05/22 10:33 [facility] (Rec: 09/05/22 12:09 [facility] [id number]) Hot Pack/Cold Pack Treatment Cold Pack Location right knee Patient Position Supine Comments LE's on pillow PT-OP-T Assessment and Plan Start: 08/26/22 08:09 Freq: Status: Active Protocol: Document 09/05/22 10:33 [facility] (Rec: 09/05/22 11:19 [facility] [id number]) Physical Therapy Assessment Goals Four Impairment decreased arch right Impairment malalignment right LE contributing to right knee pain Group Leader [employer] Goal (LTG) Patient to obtain orthotics for arch support and improved alignment right LE LTG Duration 10/10/22 Three Impairment weakness right LE Short Term Goal (STG) Patient to be instructed in HEP for purposes of knee flexibility and strengthening STG Duration 09/15/22 Group Leader [employer] Goal (LTG) Patient to be independent and compliant with HEP and demonstrate 5/5 muscle strength, and flexibility of hamstrings to at least 70 deg SLR. LTG Duration 10/10/22 Two Impairment activity tolerance Impairment LEFS score 69% Group Leader [employer] Goal (LTG) Improve LEFS score to at least 80% as measure of improved functional activity tolerance LTG Duration 10/10/22 One Impairment right knee pain Impairment 4/10 pay scale, worst at night and with descending stairs Group Leader [employer] Goal (LTG) Decrease pain to no greater than 2/10 with all usual activities and be able to sleep without being woken due to right knee pain and be able to descend stairs without pain LTG Duration 10/10/22 Assessment Summary Assessment Tolerated exercise progression well with cues for alignment with demonstration of stress to knee with malalignment, core stab with all. Updated HEP. Ice after ex today. Physical Therapy Plan Frequency and Duration Frequency of Treatment 2x/Week Duration of treatment (weeks) 6 Plan of Care Start Date 08/26/22 Plan of Care End Date 10/10/22 Therapeutic Interventions Therapeutic Interventions Home Exercise Program,Joint Mobilizations,Manual Therapy, Neuromuscular Re-education, Patient/Caregiver Education, Self-Care/Home Management,Soft Tissue Mobilization,Taping, Therapeutic Activities, Therapeutic Exercises Modalities Cold Pack/Ice Massage,Electric Stimulation,Hot Packs, Infrared Therapy,Ultrasound Next Visit Focus/Plan Next Note Type Treatment Note Next Visit Plan ASsess response to last session, continue progression of ther ex; add monster walks.
--- NOTE | 2022-09-19 18:08 | PT.OTN ---
Current Diagnoses Unilateral primary osteoarthritis, right knee (09/19/22) Physical Therapy Treatment Note PT-OP-A Visit Information Start: 08/26/22 08:09 Freq: Status: Active Protocol: Document 09/19/22 12:30 SAK (Rec: 09/19/22 13:15 [facility] [id number]) Out-Patient Physical Therapy Visit Information Visit Information Visit Type Treatment Note Visit Start Time 12:30 Visit Stop Time 13:28 Total Visit Minutes 58 Visit Number 3 Evaluation Information Evaluation Date 08/26/22 PT-OP-B Current Condition Start: 08/26/22 08:09 Freq: Status: Active Protocol: Document 09/19/22 12:30 SAK (Rec: 09/19/22 13:15 [facility] [id number]) Current Condition History of Current Condition Onset Date 2020 Current Complaints right knee pain History of Current Condition Progressive worsening of right knee pain especially at night , tried pillow between her knees. Pursued treatment when was bad enough to interrupt sleep. Went to orthopedist 2x, had PT with no success different clinic. Had injection, and started water aerobics, has been better since then until recently started to hurt again. No ice or heat, no HEP. Prior Treatments and Tests x-ray in ortho office: arthritis inside of knee. Seated yoga 1x/wk, water aerobics 2x/wk Future Testing and Treatments Planned Return to ortho if PT not helpful. Treatment Goals Patient/Caregiver Goals not be woken up due to pain, squat, do usual exercises for sciatic without pain, go down stairs without pain PT-OP-C Subjective Start: 08/26/22 08:09 Freq: Status: Active Protocol: Document 09/19/22 12:30 SAK (Rec: 09/19/22 13:15 [facility] [id number]) OP-PT Subjective Patient Comments Patient Comments Struggling with sciatica R, possibly due to leg lifts from HEP. For sciatica did some deep water hanging, some better. Has stopped doing HEP , every morning has gotten worse this week after overdoing with water aeorobics . Hurting a lot this week. PT-OP-E Functional Tests Start: 08/26/22 08:09 Freq: Status: Active Protocol: Document 08/26/22 09:08 SAK (Rec: 08/26/22 16:34 [facility] [id number]) Functional Tests Five Times Sit to Stand Test Score 22 sec Comments dec weight-bearing right PT-OP-G Mobility & Gait Start: 08/26/22 08:09 Freq: Status: Active Protocol: Document 08/26/22 09:08 [facility] (Rec: 08/26/22 16:34 [facility] [id number]) OP Gait Assessment Gait Gait Assistance Required: Independent Able to Maintain Weight Bearing Status Yes During Gait Assistive Devices Assistive Device None Gait Deviations General Gait Pattern Ataxic,Decreased Feet Clearance Stair Climbing Evaluation Evaluation Level of Assist On Stairs Independent Devices Stair Climbing Assistive Devices Left Railing,Right Railing Technique/Endurance Stair Climbing Direction Ascend and Descend Stair Climbing Technique Step Over Step Comments Stair Climbing Comments descend painful PT-OP-J Posture/Palpation/Skin Start: 08/26/22 08:09 Freq: Status: Active Protocol: Document 08/26/22 09:08 [facility] (Rec: 08/26/22 09:49 [facility] [id number]) Posture Evaluation Position Standing Knee Posture (L) Neutral,(R) Neutral Patellar Posture (L) Neutral,(R) Neutral Foot Arch (L) Medium Arch,(R) Low Arch Palpation Assessment Location One Palpation Location right knee Palpation Findings Tenderness Palpation Details medial joint line PT-OP-K Range of Motion Start: 08/26/22 08:09 Freq: Status: Active Protocol: Document 08/26/22 09:08 [facility] (Rec: 08/26/22 09:49 [facility] [id number]) Hip Goniometric Range of Motion Hip Right Straight Leg Raise 45 Extension 5 Abduction 30 Internal Rotation 30 External Rotation 50 Comments mod quad tightness Left Straight Leg Raise 45 Extension 5 Abduction 30 Internal Rotation 30 External Rotation 65 Comments mod quad tightness Knee Goniometric Range of Motion Knee marcella Knee ROM WFL Yes PT-OP-L Special Tests Start: 08/26/22 08:09 Freq: Status: Active Protocol: Document 08/26/22 09:08 [facility] (Rec: 08/26/22 16:34 [facility] [id number]) Special Tests Knee Special Tests Apley's Compression Test Results -ve Kristin's Test Results -ve Valgus- 25 Degrees Test Results -ve Varus- 0 Degrees Test Results -ve Varus- 25 Degrees Test Results -ve PT-OP-M Strength Start: 08/26/22 08:09 Freq: Status: Active Protocol: Document 08/26/22 09:08 [facility] (Rec: 08/26/22 16:34 [facility] [id number]) Hip Strength Hip Manual Muscle Testing Right Flexion (L2) 4+ Good+ Extension (S1) 4- Good- Abduction 4 Good Adduction 4+ Good+ External Rotation 4- Good- Internal Rotation 4+ Good+ Left Flexion (L2) 4+ Good+ Extension (S1) 4- Good- Abduction 4 Good Adduction 4 Good External Rotation 4- Good- Internal Rotation 4+ Good+ Knee Strength Knee Manual Muscle Testing Right Flexion (S2) 4 Good Extension (L3) 4 Good Left Flexion (S2) 5 Normal Extension (L3) 5 Normal PT-OP-Q Treatments Start: 08/26/22 08:09 Freq: Status: Active Protocol: Document 09/19/22 12:30 [facility] (Rec: 09/19/22 13:15 [facility] [id number]) Cardio Equipment Recumbent Stepper (Sci-Fit) Duration (Minutes) 8 Resistance 1.5 Seat Position 10 Other cues for pushing through heels , neutral LE alignment Therapeutic Exercises Supine Exercises quad set Reps/Minutes 10x5 TA Reps/Minutes 10x5 gluteal set Reps/Minutes 10x5 Comments cues for core activation windshield wiper Reps/Minutes 2x30 Comments marcella, gentle stretch HS stretch Equipment Used strap Reps/Minutes 2x30 IT band stretch Equipment Used strap Reps/Minutes 2x30 ball squeeze Reps/Minutes 10x Comments cues for core activation, gentle SLR Supine Exercise Name hold bridge Supine Exercise Name hold Sidelying Exercises clamshell Sidelying Exercise Name next session HIP ABDUCTION Sidelying Exercise Name hold Sitting Exercises figure 4 Reps/Minutes 2x30 right Comments gentle due to knee pain Standing Exercises chair squats Standing Exercise Name minisquats Equipment Used mirror Reps/Minutes 10x Comments verbal cues for symmetry, knees bhind toes, hip hinge, gluteal activation Self-Care/Home Management Treatment Education Other Education self massage right piriformis with tennis ball standing, supine further discussion of benefits of orthotics for improved LE alignment PT-OP-R Modalities Start: 08/26/22 08:09 Freq: Status: Active Protocol: Document 09/19/22 12:30 [facility] (Rec: 09/19/22 13:15 [facility] [id number]) Hot Pack/Cold Pack Treatment Hot Pack Location l/s, right piriformis PT-OP-T Assessment and Plan Start: 08/26/22 08:09 Freq: Status: Active Protocol: Document 09/19/22 12:30 [facility] (Rec: 09/19/22 13:15 [facility] [id number]) Physical Therapy Assessment Goals Four Impairment decreased arch right Impairment malalignment right LE contributing to right knee pain Alf Goal (LTG) Patient to obtain orthotics for arch support and improved alignment right LE LTG Duration 10/10/22 Three Impairment weakness right LE Short Term Goal (STG) Patient to be instructed in HEP for purposes of knee flexibility and strengthening STG Duration 09/15/22 Alf Goal (LTG) Patient to be independent and compliant with HEP and demonstrate 5/5 muscle strength, and flexibility of hamstrings to at least 70 deg SLR. LTG Duration 10/10/22 Two Impairment activity tolerance Impairment LEFS score 69% Alf Goal (LTG) Improve LEFS score to at least 80% as measure of improved functional activity tolerance LTG Duration 10/10/22 One Impairment right knee pain Impairment 4/10 pay scale, worst at night and with descending stairs Software Administrator Goal (LTG) Decrease pain to no greater than 2/10 with all usual activities and be able to sleep without being woken due to right knee pain and be able to descend stairs without pain LTG Duration 10/10/22 Assessment Summary Assessment Due to increase in sciatic pain, malalignment issues throughout kinetic chain LE's modfied exercises, focused on core stab, LE alignment with gentle strengthening and ROM. Patient encouraged also to return to gentle aquatic exercises deep water with deep water hang for decompression. Patient unable to do SLR any position due to exacerbation of sciatic pain; needs work on core stab for improved knee function. Physical Therapy Plan Frequency and Duration Frequency of Treatment 2x/Week Duration of treatment (weeks) 6 Plan of Care Start Date 08/26/22 Plan of Care End Date 10/10/22 Therapeutic Interventions Therapeutic Interventions Home Exercise Program,Joint Mobilizations,Manual Therapy, Neuromuscular Re-education, Patient/Caregiver Education, Self-Care/Home Management,Soft Tissue Mobilization,Taping, Therapeutic Activities, Therapeutic Exercises Modalities Cold Pack/Ice Massage,Electric Stimulation,Hot Packs, Infrared Therapy,Ultrasound Next Visit Focus/Plan Next Note Type Treatment Note Next Visit Plan Assess response to last session with modification of ther ex; progress core and LE strengthening with emphasis on neutral LE alignment. Manual therapy to piriformis, IT band and quads PRN. Modalities as indicated.
--- NOTE | 2022-09-23 16:36 | PT.OTN ---
Current Diagnoses Unilateral primary osteoarthritis, right knee (09/23/22) Physical Therapy Treatment Note PT-OP-A Visit Information Start: 08/26/22 08:09 Freq: Status: Active Protocol: Document 09/23/22 09:34 SAK (Rec: 09/23/22 10:18 [facility] [id number]) Out-Patient Physical Therapy Visit Information Visit Information Visit Type Treatment Note Visit Start Time 09:34 Visit Stop Time 10:28 Total Visit Minutes 54 Visit Number 4 Evaluation Information Evaluation Date 08/26/22 PT-OP-B Current Condition Start: 08/26/22 08:09 Freq: Status: Active Protocol: Document 09/23/22 09:34 SAK (Rec: 09/23/22 10:18 [facility] [id number]) Current Condition History of Current Condition Onset Date 2020 Current Complaints right knee pain History of Current Condition Progressive worsening of right knee pain especially at night , tried pillow between her knees. Pursued treatment when was bad enough to interrupt sleep. Went to orthopedist 2x, had PT with no success different clinic. Had injection, and started water aerobics, has been better since then until recently started to hurt again. No ice or heat, no HEP. Prior Treatments and Tests x-ray in ortho office: arthritis inside of knee. Seated yoga 1x/wk, water aerobics 2x/wk Future Testing and Treatments Planned Return to ortho if PT not helpful. Treatment Goals Patient/Caregiver Goals not be woken up due to pain, squat, do usual exercises for sciatic without pain, go down stairs without pain PT-OP-C Subjective Start: 08/26/22 08:09 Freq: Status: Active Protocol: Document 09/23/22 09:34 SAK (Rec: 09/23/22 10:18 [facility] [id number]) OP-PT Subjective Patient Comments Patient Comments Sciatic pain persists, has done small amounts of exercise . Looking at going to a chiropractor. Can't pay much attention to knee due to sciatic pain. Paying more attention to leg alignment as instructed. Hasn't made it to [facility] yet for new shoes, possible orthotics. Patient reports reminding herself to push through heels when getting up is helpful some for pain. PT-OP-E Functional Tests Start: 08/26/22 08:09 Freq: Status: Active Protocol: Document 08/26/22 09:08 SAK (Rec: 08/26/22 16:34 [facility] [id number]) Functional Tests Five Times Sit to Stand Test Score 22 sec Comments dec weight-bearing right PT-OP-G Mobility & Gait Start: 08/26/22 08:09 Freq: Status: Active Protocol: Document 08/26/22 09:08 [facility] (Rec: 08/26/22 16:34 [facility] [id number]) OP Gait Assessment Gait Gait Assistance Required: Independent Able to Maintain Weight Bearing Status Yes During Gait Assistive Devices Assistive Device None Gait Deviations General Gait Pattern Ataxic,Decreased Feet Clearance Stair Climbing Evaluation Evaluation Level of Assist On Stairs Independent Devices Stair Climbing Assistive Devices Left Railing,Right Railing Technique/Endurance Stair Climbing Direction Ascend and Descend Stair Climbing Technique Step Over Step Comments Stair Climbing Comments descend painful PT-OP-J Posture/Palpation/Skin Start: 08/26/22 08:09 Freq: Status: Active Protocol: Document 08/26/22 09:08 [facility] (Rec: 08/26/22 09:49 [facility] [id number]) Posture Evaluation Position Standing Knee Posture (L) Neutral,(R) Neutral Patellar Posture (L) Neutral,(R) Neutral Foot Arch (L) Medium Arch,(R) Low Arch Palpation Assessment Location One Palpation Location right knee Palpation Findings Tenderness Palpation Details medial joint line PT-OP-K Range of Motion Start: 08/26/22 08:09 Freq: Status: Active Protocol: Document 08/26/22 09:08 [facility] (Rec: 08/26/22 09:49 [facility] [id number]) Hip Goniometric Range of Motion Hip Right Straight Leg Raise 45 Extension 5 Abduction 30 Internal Rotation 30 External Rotation 50 Comments mod quad tightness Left Straight Leg Raise 45 Extension 5 Abduction 30 Internal Rotation 30 External Rotation 65 Comments mod quad tightness Knee Goniometric Range of Motion Knee marcella Knee ROM WFL Yes PT-OP-L Special Tests Start: 08/26/22 08:09 Freq: Status: Active Protocol: Document 08/26/22 09:08 [facility] (Rec: 08/26/22 16:34 [facility] [id number]) Special Tests Knee Special Tests Apley's Compression Test Results -ve Kristin's Test Results -ve Valgus- 25 Degrees Test Results -ve Varus- 0 Degrees Test Results -ve Varus- 25 Degrees Test Results -ve PT-OP-M Strength Start: 08/26/22 08:09 Freq: Status: Active Protocol: Document 08/26/22 09:08 [facility] (Rec: 08/26/22 16:34 [facility] [id number]) Hip Strength Hip Manual Muscle Testing Right Flexion (L2) 4+ Good+ Extension (S1) 4- Good- Abduction 4 Good Adduction 4+ Good+ External Rotation 4- Good- Internal Rotation 4+ Good+ Left Flexion (L2) 4+ Good+ Extension (S1) 4- Good- Abduction 4 Good Adduction 4 Good External Rotation 4- Good- Internal Rotation 4+ Good+ Knee Strength Knee Manual Muscle Testing Right Flexion (S2) 4 Good Extension (L3) 4 Good Left Flexion (S2) 5 Normal Extension (L3) 5 Normal PT-OP-Q Treatments Start: 08/26/22 08:09 Freq: Status: Active Protocol: Document 09/23/22 09:34 [facility] (Rec: 09/23/22 10:18 [facility] [id number]) Cardio Equipment Recumbent Stepper (Sci-Fit) Duration (Minutes) 8 Resistance 2.0 Seat Position 10 Other cues for pushing through heels , neutral LE alignment Gym Equipment Shuttle Recovery Bilateral Squats Resistance 50# Shuttle Recovery Platform Stable Reps/Time 10 x 3, cues to push through heel Unilateral Squats Details L side Painfree range Resistance 25# Shuttle Recovery Platform Stable Reps/Time 10x2 Therapeutic Exercises Supine Exercises Moise stretch Reps/Minutes 2x30 Comments manual for neutral LE alignmentalignment SKTC Reps/Minutes 2x30 HS stretch Equipment Used manual Reps/Minutes 2x30 IT band stretch Equipment Used manual Reps/Minutes 2x30 Sidelying Exercises HC stretch Equipment Used stair Reps/Minutes 2x5 Sitting Exercises hamstring curl Equipment Used L2 TB Standing Exercises quad stretch Equipment Used chair Reps/Minutes 2x30 calf stretch Equipment Used stair, DANK Reps/Minutes 2x30 Comments marcella and unil Manual Therapy Treatment Soft Tissue Mobilization right piriformis Mobilization Type Sustained Pressure Intensity/Depth Moderate Comments supine and S/L Self-Care/Home Management Treatment Education Patient Education Body Mechanics,Home Exercise Program,Pain Management, Posture Other Education reviewed self massage right piriformis with tennis ball standing, supine pay attention to alignment, core activation prior to movement PT-OP-R Modalities Start: 08/26/22 08:09 Freq: Status: Active Protocol: Document 09/23/22 09:34 [facility] (Rec: 09/23/22 10:18 [facility] [id number]) Hot Pack/Cold Pack Treatment Cold Pack Location L knee, piriformis Patient Position Supine Comments L LE elevated on bolster PT-OP-T Assessment and Plan Start: 08/26/22 08:09 Freq: Status: Active Protocol: Document 09/23/22 09:34 [facility] (Rec: 09/23/22 10:18 [facility] [id number]) Physical Therapy Assessment Goals Four Impairment decreased arch right Impairment malalignment right LE contributing to right knee pain Customer Contact Representative Goal (LTG) Patient to obtain orthotics for arch support and improved alignment right LE LTG Duration 10/10/22 Three Impairment weakness right LE Short Term Goal (STG) Patient to be instructed in HEP for purposes of knee flexibility and strengthening STG Duration 09/15/22 Customer Contact Representative Goal (LTG) Patient to be independent and compliant with HEP and demonstrate 5/5 muscle strength, and flexibility of hamstrings to at least 70 deg SLR. LTG Duration 10/10/22 Two Impairment activity tolerance Impairment LEFS score 69% Customer Contact Representative Goal (LTG) Improve LEFS score to at least 80% as measure of improved functional activity tolerance LTG Duration 10/10/22 One Impairment right knee pain Impairment 4/10 pay scale, worst at night and with descending stairs [facility]dc Goal (LTG) Decrease pain to no greater than 2/10 with all usual activities and be able to sleep without being woken due to right knee pain and be able to descend stairs without pain LTG Duration 10/10/22 Assessment Summary Assessment Sciatic pain persists, though lessened some with stretching today, emphasis on core stab. Physical Therapy Plan Frequency and Duration Frequency of Treatment 2x/Week Duration of treatment (weeks) 6 Plan of Care Start Date 08/26/22 Plan of Care End Date 10/10/22 Therapeutic Interventions Therapeutic Interventions Home Exercise Program,Joint Mobilizations,Manual Therapy, Neuromuscular Re-education, Patient/Caregiver Education, Self-Care/Home Management,Soft Tissue Mobilization,Taping, Therapeutic Activities, Therapeutic Exercises Modalities Cold Pack/Ice Massage,Electric Stimulation,Hot Packs, Infrared Therapy,Ultrasound Next Visit Focus/Plan Next Note Type Treatment Note Next Visit Plan Progress core stab, LE strengthening ex as tolerated. Manual to piriformis, TFL , glut med, and quads PRN.
--- NOTE | 2022-09-25 14:03 | PT.OTN ---
Current Diagnoses Unilateral primary osteoarthritis, right knee (09/25/22) Physical Therapy Treatment Note PT-OP-A Visit Information Start: 08/26/22 08:09 Freq: Status: Active Protocol: Document 09/25/22 13:[address] [facility] (Rec: 09/25/22 14:[address] [facility] [id number]) Out-Patient Physical Therapy Visit Information Visit Information Visit Type Treatment Note Visit Start Time 13:14 Visit Stop Time 10:28 Total Visit Minutes 54 Visit Number 5 Evaluation Information Evaluation Date 08/26/22 PT-OP-B Current Condition Start: 08/26/22 08:09 Freq: Status: Active Protocol: Document 09/25/22 13:14 [facility] (Rec: 09/25/22 14:[address] [facility] [id number]) Current Condition History of Current Condition Onset Date 2020 Current Complaints right knee pain History of Current Condition Progressive worsening of right knee pain especially at night , tried pillow between her knees. Pursued treatment when was bad enough to interrupt sleep. Went to orthopedist 2x, had PT with no success different clinic. Had injection, and started water aerobics, has been better since then until recently started to hurt again. No ice or heat, no HEP. Prior Treatments and Tests x-ray in ortho office: arthritis inside of knee. Seated yoga 1x/wk, water aerobics 2x/wk Future Testing and Treatments Planned Return to ortho if PT not helpful. PT-OP-C Subjective Start: 08/26/22 08:09 Freq: Status: Active Protocol: Document 09/25/22 13:[address] [facility] (Rec: 09/25/22 14:[address] [facility] [id number]) OP-PT Subjective Patient Comments Patient Comments Sciatic pain was feeling 90% better last night, a little more this am, then sharp pain when getting mail, has improved a little with walking around. States realizes when aydin over she can do it if she tightens core, good feedback. REports flexibility a little better in knee. Improved sleep with use of pillow between knees PT-OP-E Functional Tests Start: 08/26/22 08:09 Freq: Status: Active Protocol: Document 08/26/22 09:08 [facility] (Rec: 08/26/22 16:[address] [facility] [id number]) Functional Tests Five Times Sit to Stand Test Score 22 sec Comments dec weight-bearing right PT-OP-G Mobility & Gait Start: 08/26/22 08:09 Freq: Status: Active Protocol: Document 08/26/22 09:[address] [facility] (Rec: 08/26/22 16:[address] [facility] [id number]) OP Gait Assessment Gait Gait Assistance Required: Independent Able to Maintain Weight Bearing Status Yes During Gait Assistive Devices Assistive Device None Gait Deviations General Gait Pattern Ataxic,Decreased Feet Clearance Stair Climbing Evaluation Evaluation Level of Assist On Stairs Independent Devices Stair Climbing Assistive Devices Left Railing,Right Railing Technique/Endurance Stair Climbing Direction Ascend and Descend Stair Climbing Technique Step Over Step Comments Stair Climbing Comments descend painful PT-OP-J Posture/Palpation/Skin Start: 08/26/22 08:09 Freq: Status: Active Protocol: Document 08/26/22 09:[address] [facility] (Rec: 08/26/22 09:[address] [facility] [id number]) Posture Evaluation Position Standing Knee Posture (L) Neutral,(R) Neutral Patellar Posture (L) Neutral,(R) Neutral Foot Arch (L) Medium Arch,(R) Low Arch Palpation Assessment Location One Palpation Location right knee Palpation Findings Tenderness Palpation Details medial joint line PT-OP-K Range of Motion Start: 08/26/22 08:09 Freq: Status: Active Protocol: Document 08/26/22 09:[address] [facility] (Rec: 08/26/22 09:[address] [facility] [id number]) Hip Goniometric Range of Motion Hip Right Straight Leg Raise 45 Extension 5 Abduction 30 Internal Rotation 30 External Rotation 50 Comments mod quad tightness Left Straight Leg Raise 45 Extension 5 Abduction 30 Internal Rotation 30 External Rotation 65 Comments mod quad tightness Knee Goniometric Range of Motion Knee marcella Knee ROM WFL Yes PT-OP-L Special Tests Start: 08/26/22 08:09 Freq: Status: Active Protocol: Document 08/26/22 09:[address] [facility] (Rec: 08/26/22 16:[address] [facility] [id number]) Special Tests Knee Special Tests Apley's Compression Test Results -ve Kristin's Test Results -ve Valgus- 25 Degrees Test Results -ve Varus- 0 Degrees Test Results -ve Varus- 25 Degrees Test Results -ve PT-OP-M Strength Start: 08/26/22 08:09 Freq: Status: Active Protocol: Document 08/26/22 09:[address] [facility] (Rec: 08/26/22 16:[address] [facility] [id number]) Hip Strength Hip Manual Muscle Testing Right Flexion (L2) 4+ Good+ Extension (S1) 4- Good- Abduction 4 Good Adduction 4+ Good+ External Rotation 4- Good- Internal Rotation 4+ Good+ Left Flexion (L2) 4+ Good+ Extension (S1) 4- Good- Abduction 4 Good Adduction 4 Good External Rotation 4- Good- Internal Rotation 4+ Good+ Knee Strength Knee Manual Muscle Testing Right Flexion (S2) 4 Good Extension (L3) 4 Good Left Flexion (S2) 5 Normal Extension (L3) 5 Normal PT-OP-Q Treatments Start: 08/26/22 08:09 Freq: Status: Active Protocol: Document 09/25/22 13:[address] [facility] (Rec: 09/25/22 14:[address] [facility] [id number]) Cardio Equipment Recumbent Stepper (Sci-Fit) Duration (Minutes) 8 Resistance 2.0 Seat Position 10 Other cues for pushing through heels , neutral LE alignment Therapeutic Exercises Supine Exercises Moise stretch Reps/Minutes 2x30 Comments manual for neutral LE alignmentalignment SKTC Reps/Minutes 2x30 HS stretch Equipment Used manual Reps/Minutes 2x30 IT band stretch Equipment Used manual Reps/Minutes 2x30 Manual Therapy Treatment Soft Tissue Mobilization right piriformis Mobilization Type Sustained Pressure Intensity/Depth Moderate Comments S/L Self-Care/Home Management Treatment Education Other Education reviewed self massage right piriformis with tennis ball and raquetbastanding, supine pay attention to alignment, core activation prior to movement PT-OP-R Modalities Start: 08/26/22 08:09 Freq: Status: Active Protocol: Document 09/25/22 13:[address] [facility] (Rec: 09/25/22 14:[address] [facility] [id number]) Hot Pack/Cold Pack Treatment Cold Pack Location L knee, piriformis Patient Position Supine Comments L LE elevated on bolster PT-OP-T Assessment and Plan Start: 08/26/22 08:09 Freq: Status: Active Protocol: Document 09/25/22 13:[address] [facility] (Rec: 09/25/22 14:[address] [facility] [id number]) Physical Therapy Assessment Goals Four Impairment decreased arch right Impairment malalignment right LE contributing to right knee pain Machinery Cleaner Goal (LTG) Patient to obtain orthotics for arch support and improved alignment right LE LTG Duration 10/10/22 Three Impairment weakness right LE Short Term Goal (STG) Patient to be instructed in HEP for purposes of knee flexibility and strengthening STG Duration 09/15/22 Longterm Goal (LTG) Patient to be independent and compliant with HEP and demonstrate 5/5 muscle strength, and flexibility of hamstrings to at least 70 deg SLR. LTG Duration 10/10/22 Two Impairment activity tolerance Impairment LEFS score 69% Longterm Goal (LTG) Improve LEFS score to at least 80% as measure of improved functional activity tolerance LTG Duration 10/10/22 One Impairment right knee pain Impairment 4/10 pay scale, worst at night and with descending stairs Machinery Cleaner Goal (LTG) Decrease pain to no greater than 2/10 with all usual activities and be able to sleep without being woken due to right knee pain and be able to descend stairs without pain LTG Duration 10/10/22 Assessment Summary Assessment Good response to last session though symptoms irritable. Cues required for correct performance of Moise stretch. REporting improved ROM at knee. Will be gone 1 week, then return for PT. Plans to obtain shruthi and/yoselyn darlene for self massage due to good response to PT manual treatment. Physical Therapy Plan Frequency and Duration Frequency of Treatment 2x/Week Duration of treatment (weeks) 6 Plan of Care Start Date 08/26/22 Plan of Care End Date 10/10/22 Therapeutic Interventions Therapeutic Interventions Home Exercise Program,Joint Mobilizations,Manual Therapy, Neuromuscular Re-education, Patient/Caregiver Education, Self-Care/Home Management,Soft Tissue Mobilization,Taping, Therapeutic Activities, Therapeutic Exercises Modalities Cold Pack/Ice Massage,Electric Stimulation,Hot Packs, Infrared Therapy,Ultrasound Next Visit Focus/Plan Next Note Type Treatment Note Next Visit Plan Progress core stab, LE strengthening ex as tolerated. Manual to piriformis, TFL , glut med, and quads PRN. Modalities PRN
--- NOTE | 2022-10-07 14:27 | PT.OTRE ---
Current Diagnoses Unilateral primary osteoarthritis, right knee (10/07/22) Past Medical History (Last Reviewed 09/25/21 @ 15:37 by Rafal Keith MD) Anxiety (~1994) Chicken pox (~1951) Depression Hx of breast cancer Insomnia (~09/22/21) Osteoarthritis (~2004) Osteopenia (~2007) Plantar warts (~1954) Stenosis of carotid artery Surgical History (Last Reviewed 09/25/21 @ 15:37 by Rafal Keith MD) Anesthesia Status post cholecystectomy (~2003) Status post hysterectomy (~1991) Visit Care Team Role Provider Type Mere Louis MD Family Provider Physician Primary Care Provider Specialty: Family Practice Address: [address] [place] [address], [id number] Email: [email or web address] Alena Ceballos PA-C Attending Provider Advanced Skid Wrapper Referring Provider Specialty: Orthopedics Orthopedic Surgery Address: [address] [place] [address], [id number] Email: [email or web address] Physical Therapy Re-Evaluation PT-OP-A Visit Information Start: 08/26/22 08:09 Freq: Status: Active Protocol: Document 10/07/22 11:14 [facility] (Rec: 10/07/22 12:04 [facility] [id number]) Out-Patient Physical Therapy Visit Information Visit Information Visit Type Re-Evaluation Visit Start Time 11:17 Visit Stop Time 10:28 Total Visit Minutes 55 Visit Number 6 PT-OP-B Current Condition Start: 08/26/22 08:09 Freq: Status: Active Protocol: Document 10/07/22 11:14 [facility] (Rec: 10/07/22 12:04 [facility] [id number]) Current Condition History of Current Condition Onset Date 2020 Current Complaints right knee pain History of Current Condition Progressive worsening of right knee pain especially at night , tried pillow between her knees. Pursued treatment when was bad enough to interrupt sleep. Went to orthopedist 2x, had PT with no success different clinic. Had injection, and started water aerobics, has been better since then until recently started to hurt again. No ice or heat, no HEP. Prior Treatments and Tests x-ray in ortho office: arthritis inside of knee. Seated yoga 1x/wk, water aerobics 2x/wk Future Testing and Treatments Planned Return to ortho if PT not helpful. Treatment Goals Patient/Caregiver Goals not be woken up due to pain, squat, do usual exercises for sciatic without pain, go down stairs without pain PT-OP-C Subjective Start: 08/26/22 08:09 Freq: Status: Active Protocol: Document 10/07/22 11:14 [facility] (Rec: 10/07/22 12:04 [facility] [id number]) OP-PT Subjective Patient Comments Patient Comments Not sure knee better, has been addressing SI pain. Working on buttock improves lateral thigh pain. Used son's Lacross ball for self-massage; liked better than tennis ball . SI pain improved. Can't tolerate glut set, bridging, SLR, hasn't tried hip abduction, can't do bent knee march. HIstory of lumbopelvic pain impeding exercise tolerance. PT-OP-E Functional Tests Start: 08/26/22 08:09 Freq: Status: Active Protocol: Document 08/26/22 09:08 [facility] (Rec: 08/26/22 16:34 [facility] [id number]) Functional Tests Five Times Sit to Stand Test Score 22 sec Comments dec weight-bearing right PT-OP-G Mobility & Gait Start: 08/26/22 08:09 Freq: Status: Active Protocol: Document 08/26/22 09:08 [facility] (Rec: 08/26/22 16:34 [facility] [id number]) OP Gait Assessment Gait Gait Assistance Required: Independent Able to Maintain Weight Bearing Status Yes During Gait Assistive Devices Assistive Device None Gait Deviations General Gait Pattern Ataxic,Decreased Feet Clearance Stair Climbing Evaluation Evaluation Level of Assist On Stairs Independent Devices Stair Climbing Assistive Devices Left Railing,Right Railing Technique/Endurance Stair Climbing Direction Ascend and Descend Stair Climbing Technique Step Over Step Comments Stair Climbing Comments descend painful PT-OP-J Posture/Palpation/Skin Start: 08/26/22 08:09 Freq: Status: Active Protocol: Document 08/26/22 09:08 [facility] (Rec: 08/26/22 09:49 [facility] [id number]) Posture Evaluation Position Standing Knee Posture (L) Neutral,(R) Neutral Patellar Posture (L) Neutral,(R) Neutral Foot Arch (L) Medium Arch,(R) Low Arch Palpation Assessment Location One Palpation Location right knee Palpation Findings Tenderness Palpation Details medial joint line PT-OP-K Range of Motion Start: 08/26/22 08:09 Freq: Status: Active Protocol: Document 08/26/22 09:08 [facility] (Rec: 08/26/22 09:49 [facility] [id number]) Hip Goniometric Range of Motion Hip Measured in Degrees Right Straight Leg Raise 45 Extension 5 Abduction 30 Internal Rotation 30 External Rotation 50 Comments mod quad tightness Left Straight Leg Raise 45 Extension 5 Abduction 30 Internal Rotation 30 External Rotation 65 Comments mod quad tightness Knee Goniometric Range of Motion Knee Measured in Degrees marcella Knee ROM WFL Yes PT-OP-L Special Tests Start: 08/26/22 08:09 Freq: Status: Active Protocol: Document 08/26/22 09:08 [facility] (Rec: 08/26/22 16:34 [facility] [id number]) Special Tests Knee Special Tests Apley's Compression Test Results -ve Kristin's Test Results -ve Valgus- 25 Degrees Test Results -ve Varus- 0 Degrees Test Results -ve Varus- 25 Degrees Test Results -ve PT-OP-M Strength Start: 08/26/22 08:09 Freq: Status: Active Protocol: Document 08/26/22 09:08 [facility] (Rec: 08/26/22 16:34 [facility] [id number]) Hip Strength Hip Manual Muscle Testing Right Flexion (L2) 4+ Good+ Extension (S1) 4- Good- Abduction 4 Good Adduction 4+ Good+ External Rotation 4- Good- Internal Rotation 4+ Good+ Left Flexion (L2) 4+ Good+ Extension (S1) 4- Good- Abduction 4 Good Adduction 4 Good External Rotation 4- Good- Internal Rotation 4+ Good+ Knee Strength Knee Manual Muscle Testing Right Flexion (S2) 4 Good Extension (L3) 4 Good Left Flexion (S2) 5 Normal Extension (L3) 5 Normal PT-OP-Q Treatments Start: 08/26/22 08:09 Freq: Status: Active Protocol: Document 10/07/22 11:14 [facility] (Rec: 10/07/22 12:04 [facility] [id number]) Cardio Equipment Recumbent Stepper (Sci-Fit) Other cues for pushing through heels , neutral LE alignment Recumbent Bicycle Duration (Minutes) 10 Resistance 5 Seat Position 4 Other cues for LE alignment Gym Equipment Shuttle Recovery Bilateral Squats Resistance 50# Shuttle Recovery Platform Stable Reps/Time 10 x 3, cues to push through heel Unilateral Squats Details L side Painfree range Resistance 25# Shuttle Recovery Platform Stable Reps/Time 10x2 Therapeutic Exercises Supine Exercises hamstring curl Resistance L! TB Reps/Minutes 10x Moise stretch Reps/Minutes 2x30 Comments manual for neutral LE alignmentalignment TA Reps/Minutes 5x gluteal set Supine Exercise Name not tolerated HS stretch Equipment Used manual Reps/Minutes 2x30 IT band stretch Equipment Used manual Reps/Minutes 2x30 ball squeeze Supine Exercise Name not tolerated SLR Supine Exercise Name not tolerated bridge Supine Exercise Name not tolerated Prone Exercises quad stretch Equipment Used strap Reps/Minutes 2X30 Sitting Exercises hamstring curl Equipment Used L2 TB Reps/Minutes 10x5 Standing Exercises calf stretch Equipment Used stair, DANK Reps/Minutes 2x30 Comments marcella and unil Manual Therapy Treatment Soft Tissue Mobilization right quads Mobilization Type Instrument Assisted,Myofascial Release,Strumming Intensity/Depth Moderate Body Position Hooklying Comments instructed use of rolling pin Self-Care/Home Management Treatment Education Other Education Continue emphasis on core activation with all activities and exercises. Decrease intensity of exercise if painful, interaction of muscles connecting knees and hips/pelvis. PT-OP-R Modalities Start: 08/26/22 08:09 Freq: Status: Active Protocol: Document 10/07/22 11:14 [facility] (Rec: 10/07/22 14:27 [facility] [id number]) Hot Pack/Cold Pack Treatment Hot Pack Location right quad, IT band, knee Patient Position Hooklying Treatment Duration (minutes) 15 Patient Tolerance Good PT-OP-T Assessment and Plan Start: 08/26/22 08:09 Freq: Status: Active Protocol: Document 10/07/22 11:14 [facility] (Rec: 10/07/22 12:04 [facility] [id number]) Physical Therapy Assessment Goals Four Impairment decreased arch right Impairment malalignment right LE contributing to right knee pain Jail Goal (LTG) Patient to obtain orthotics for arch support and improved alignment right LE 10/07/22: has not done LTG Duration 12/07/22 Three Impairment weakness right LE Short Term Goal (STG) Patient to be instructed in HEP for purposes of knee flexibility and strengthening 10/07/22: modfied HEP today due to decrease tolerance for any hip ex, issued updated HO empasis on knee strengthening and flexibility, poor tolerance hip STG Duration 11/07/22 Air Duct Mechanic Goal (LTG) Patient to be independent and compliant with HEP and demonstrate 5/5 muscle strength, and flexibility of hamstrings to at least 70 deg SLR. 10/07/22: goal progress LTG Duration 12/07/22 Two Impairment activity tolerance Impairment LEFS score 69% Jail Goal (LTG) Improve LEFS score to at least 80% as measure of improved functional activity tolerance 10/07/22: score 70%, reports improved flexibility in knees, but pain in buttock and SI has impacted activity tolerance and her ability to focus on knee ex LTG Duration 12/07/22 One Impairment right knee pain Impairment 4/10 pay scale, worst at night and with descending stairs Air Duct Mechanic Goal (LTG) Decrease pain to no greater than 2/10 with all usual activities and be able to sleep without being woken due to right knee pain and be able to descend stairs without pain 10/07/22: pain 0-4/10, using small pillow between knees, agreeable to try larger pillow as shown in PT LTG Duration 12/07/22 Assessment Summary Assessment Patient HEP reviewed and modified for tolerance with updated HO issued today. Poor tolerance for hip ex, good for SAQ, seated hamstring curl , and stretches for quads, HS, and ITB. Demonsgtrated good understanding of use of rolling pin for quad and IT band self-massage. Would benefit from further skilled PT to continue strengthening and flexibility for right knee , incorporate hip strengthening as able for support of kinetic chain in LE function. Physical Therapy Plan Frequency and Duration Frequency of Treatment 2x/Week Duration of treatment (weeks) 6 Plan of Care Start Date 10/07/22 Plan of Care End Date 12/07/22 Therapeutic Interventions Therapeutic Interventions Home Exercise Program,Joint Mobilizations,Manual Therapy, Neuromuscular Re-education, Patient/Caregiver Education, Self-Care/Home Management,Soft Tissue Mobilization,Taping, Therapeutic Activities, Therapeutic Exercises Modalities Cold Pack/Ice Massage,Electric Stimulation,Hot Packs, Infrared Therapy,Ultrasound Next Visit Focus/Plan Next Note Type Treatment Note Next Visit Plan Progress core stab, LE strengthening ex and LE flexibility ex as tolerated. Manual to piriformis, TFL , glut med, and quads PRN. Modalities PRN
--- NOTE | 2022-10-07 14:27 | PT.OPPOC ---
Physical, Occupational & Speech Therapy At [facility] Current Diagnoses Unilateral primary osteoarthritis, right knee (10/07/22) Visit Care Team Role Provider Type Mere Louis MD Family Provider Physician Primary Care Provider Specialty: Family Practice Address: [address] [place] [address], [facility] [place], [address] Email: [email or web address] Alena Ceballos PA-C Attending Provider Advanced Earth Science Faculty Member Referring Provider Specialty: Orthopedics Orthopedic Surgery Address: [address] [place] [address], [address] Email: [email or web address] Plan Of Care PT-OP-T Assessment and Plan Start: 08/26/22 08:09 Freq: Status: Active Protocol: Document 10/07/22 11:14 [facility] (Rec: 10/07/22 12:04 [facility] [id number]) Physical Therapy Assessment Goals Four Impairment decreased arch right Impairment malalignment right LE contributing to right knee pain Jail Goal (LTG) Patient to obtain orthotics for arch support and improved alignment right LE 10/07/22: has not done LTG Duration 12/07/22 Three Impairment weakness right LE Short Term Goal (STG) Patient to be instructed in HEP for purposes of knee flexibility and strengthening 10/07/22: modfied HEP today due to decrease tolerance for any hip ex, issued updated HO empasis on knee strengthening and flexibility, poor tolerance hip STG Duration 11/07/22 Geology Professor Goal (LTG) Patient to be independent and compliant with HEP and demonstrate 09/20 muscle strength, and flexibility of hamstrings to at least 70 deg SLR. 10/07/22: goal progress LTG Duration 12/07/22 Two Impairment activity tolerance Impairment LEFS score 69% Geology Professor Goal (LTG) Improve LEFS score to at least 80% as measure of improved functional activity tolerance 10/07/22: score 70%, reports improved flexibility in knees, but pain in buttock and SI has impacted activity tolerance and her ability to focus on knee ex LTG Duration 12/07/22 One Impairment right knee pain Impairment 4/10 pay scale, worst at night and with descending stairs Geology Professor Goal (LTG) Decrease pain to no greater than 2/10 with all usual activities and be able to sleep without being woken due to right knee pain and be able to descend stairs without pain 10/07/22: pain 0-4/10, using small pillow between knees, agreeable to try larger pillow as shown in PT LTG Duration 12/07/22 Assessment Summary Assessment Patient HEP reviewed and modified for tolerance with updated HO issued today. Poor tolerance for hip ex, good for SAQ, seated hamstring curl , and stretches for quads, HS, and ITB. Demonsgtrated good understanding of use of rolling pin for quad and IT band self-massage. Would benefit from further skilled PT to continue strengthening and flexibility for right knee , incorporate hip strengthening as able for support of kinetic chain in LE function. Physical Therapy Plan Frequency and Duration Frequency of Treatment 2x/Week Duration of treatment (weeks) 6 Plan of Care Start Date 10/07/22 Plan of Care End Date 12/07/22 Therapeutic Interventions Therapeutic Interventions Home Exercise Program,Joint Mobilizations,Manual Therapy, Neuromuscular Re-education, Patient/Caregiver Education, Self-Care/Home Management,Soft Tissue Mobilization,Taping, Therapeutic Activities, Therapeutic Exercises Modalities Cold Pack/Ice Massage,Electric Stimulation,Hot Packs, Infrared Therapy,Ultrasound Next Visit Focus/Plan Next Note Type Treatment Note Next Visit Plan Progress core stab, LE strengthening ex and LE flexibility ex as tolerated. Manual to piriformis, TFL , glut med, and quads PRN. Modalities PRN Plan of Care Dates Plan of Care Start Date 10/07/22 Plan of Care End Date 12/07/22 Electronically Signed by: Randee Mendoza, PT 10/07/22 9925 If you are in agreement with this Plan of Care, please return a signed and dated copy. I have reviewed this Plan of Care and certify that the skilled therapy services above are required to meet the patient?s needs. Physician Signature Date Printed Name and Credentials Clinical Instructor Signature Printed Name and Credentials
--- NOTE | 2022-10-10 14:01 | PT.OTN ---
Current Diagnoses Unilateral primary osteoarthritis, right knee (10/10/22) Physical Therapy Treatment Note PT-OP-A Visit Information Start: 08/26/22 08:09 Freq: Status: Active Protocol: Document 10/10/22 12:34 [facility] (Rec: 10/10/22 13:17 [facility] [id number]) Out-Patient Physical Therapy Visit Information Visit Information Visit Type Treatment Note Visit Start Time 12:30 Visit Stop Time 13:25 Total Visit Minutes 55 Visit Number 7 PT-OP-B Current Condition Start: 08/26/22 08:09 Freq: Status: Active Protocol: Document 10/10/22 12:34 [facility] (Rec: 10/10/22 13:17 [facility] [id number]) Current Condition History of Current Condition Onset Date 2020 Current Complaints right knee pain History of Current Condition Progressive worsening of right knee pain especially at night , tried pillow between her knees. Pursued treatment when was bad enough to interrupt sleep. Went to orthopedist 2x, had PT with no success different clinic. Had injection, and started water aerobics, has been better since then until recently started to hurt again. No ice or heat, no HEP. Prior Treatments and Tests x-ray in ortho office: arthritis inside of knee. Seated yoga 1x/wk, water aerobics 2x/wk Future Testing and Treatments Planned Return to ortho if PT not helpful. Treatment Goals Patient/Caregiver Goals not be woken up due to pain, squat, do usual exercises for sciatic without pain, go down stairs without pain PT-OP-C Subjective Start: 08/26/22 08:09 Freq: Status: Active Protocol: Document 10/10/22 12:34 [facility] (Rec: 10/10/22 13:17 [facility] [id number]) OP-PT Subjective Patient Comments Patient Comments Went to aquatic exercise both Friday and today, thinks she overdoes maybe because things are so easy to do in the pool . Reports with knee flex/ext in pool today felt some right knee pain with extension movement. Walking into PT today fatigued but not painful . Likes the modifications to HEP made last session. Trying to incorporate core into all ex and activities PT-OP-E Functional Tests Start: 08/26/22 08:09 Freq: Status: Active Protocol: Document 08/26/22 09:08 [facility] (Rec: 08/26/22 16:34 [facility] [id number]) Functional Tests Five Times Sit to Stand Test Score 22 sec Comments dec weight-bearing right PT-OP-G Mobility & Gait Start: 08/26/22 08:09 Freq: Status: Active Protocol: Document 08/26/22 09:08 [facility] (Rec: 08/26/22 16:34 [facility] [id number]) OP Gait Assessment Gait Gait Assistance Required: Independent Able to Maintain Weight Bearing Status Yes During Gait Assistive Devices Assistive Device None Gait Deviations General Gait Pattern Ataxic,Decreased Feet Clearance Stair Climbing Evaluation Evaluation Level of Assist On Stairs Independent Devices Stair Climbing Assistive Devices Left Railing,Right Railing Technique/Endurance Stair Climbing Direction Ascend and Descend Stair Climbing Technique Step Over Step Comments Stair Climbing Comments descend painful PT-OP-J Posture/Palpation/Skin Start: 08/26/22 08:09 Freq: Status: Active Protocol: Document 08/26/22 09:08 [facility] (Rec: 08/26/22 09:49 [facility] [id number]) Posture Evaluation Position Standing Knee Posture (L) Neutral,(R) Neutral Patellar Posture (L) Neutral,(R) Neutral Foot Arch (L) Medium Arch,(R) Low Arch Palpation Assessment Location One Palpation Location right knee Palpation Findings Tenderness Palpation Details medial joint line PT-OP-K Range of Motion Start: 08/26/22 08:09 Freq: Status: Active Protocol: Document 08/26/22 09:08 [facility] (Rec: 08/26/22 09:49 [facility] [id number]) Hip Goniometric Range of Motion Hip Right Straight Leg Raise 45 Extension 5 Abduction 30 Internal Rotation 30 External Rotation 50 Comments mod quad tightness Left Straight Leg Raise 45 Extension 5 Abduction 30 Internal Rotation 30 External Rotation 65 Comments mod quad tightness Knee Goniometric Range of Motion Knee marcella Knee ROM WFL Yes PT-OP-L Special Tests Start: 08/26/22 08:09 Freq: Status: Active Protocol: Document 08/26/22 09:08 [facility] (Rec: 08/26/22 16:34 [facility] [id number]) Special Tests Knee Special Tests Apley's Compression Test Results -ve Kristin's Test Results -ve Valgus- 25 Degrees Test Results -ve Varus- 0 Degrees Test Results -ve Varus- 25 Degrees Test Results -ve PT-OP-M Strength Start: 08/26/22 08:09 Freq: Status: Active Protocol: Document 08/26/22 09:08 [facility] (Rec: 08/26/22 16:34 [facility] [id number]) Hip Strength Hip Manual Muscle Testing Right Flexion (L2) 4+ Good+ Extension (S1) 4- Good- Abduction 4 Good Adduction 4+ Good+ External Rotation 4- Good- Internal Rotation 4+ Good+ Left Flexion (L2) 4+ Good+ Extension (S1) 4- Good- Abduction 4 Good Adduction 4 Good External Rotation 4- Good- Internal Rotation 4+ Good+ Knee Strength Knee Manual Muscle Testing Right Flexion (S2) 4 Good Extension (L3) 4 Good Left Flexion (S2) 5 Normal Extension (L3) 5 Normal PT-OP-Q Treatments Start: 08/26/22 08:09 Freq: Status: Active Protocol: Document 10/10/22 12:34 [facility] (Rec: 10/10/22 13:17 [facility] [id number]) Cardio Equipment Recumbent Stepper (Sci-Fit) Duration (Minutes) 5 Resistance 2 Seat Position 10 Other cues for pushing through heels , neutral LE alignment Gym Equipment Cable Column (Body Solid) HS curl Resistance 25 Reps/Time 10x2 Shuttle Recovery Bilateral Squats Resistance 50# Shuttle Recovery Platform Stable Reps/Time 10 x 3, cues to push through heel Unilateral Squats Details right first, cues for pain- free ROM Resistance 25# Shuttle Recovery Platform Stable Reps/Time 10x2 Therapeutic Exercises Supine Exercises Moise stretch Reps/Minutes 2x30 Comments manual for neutral LE alignment, inc quad stretch HS stretch Equipment Used manual Reps/Minutes 2x30 IT band stretch Equipment Used manual Reps/Minutes 2x30 Prone Exercises quad stretch Prone Exercise Name review next session Standing Exercises heel raises, toe raises Reps/Minutes 10x ea Manual Therapy Treatment Soft Tissue Mobilization right quads Mobilization Type Instrument Assisted,Myofascial Release,Strumming Intensity/Depth Moderate Body Position Hooklying Comments instructed use of rolling pin PT-OP-R Modalities Start: 08/26/22 08:09 Freq: Status: Active Protocol: Document 10/10/22 12:34 [facility] (Rec: 10/10/22 14:01 [facility] [id number]) Hot Pack/Cold Pack Treatment Hot Pack Location right quad, IT band, knee Patient Position Sidelying Treatment Duration (minutes) 15 Patient Tolerance Good PT-OP-T Assessment and Plan Start: 08/26/22 08:09 Freq: Status: Active Protocol: Document 10/10/22 12:34 [facility] (Rec: 10/10/22 13:17 [facility] [id number]) Physical Therapy Assessment Goals Four Impairment decreased arch right Impairment malalignment right LE contributing to right knee pain Senior Living Goal (LTG) Patient to obtain orthotics for arch support and improved alignment right LE 10/07/22: has not done LTG Duration 12/07/22 Three Impairment weakness right LE Short Term Goal (STG) Patient to be instructed in HEP for purposes of knee flexibility and strengthening 10/07/22: modfied HEP today due to decrease tolerance for any hip ex, issued updated HO empasis on knee strengthening and flexibility, poor tolerance hip STG Duration 11/07/22 [facility] Goal (LTG) Patient to be independent and compliant with HEP and demonstrate 5/5 muscle strength, and flexibility of hamstrings to at least 70 deg SLR. 10/07/22: goal progress LTG Duration 12/07/22 Two Impairment activity tolerance Impairment LEFS score 69% Senior Living Goal (LTG) Improve LEFS score to at least 80% as measure of improved functional activity tolerance 10/07/22: score 70%, reports improved flexibility in knees, but pain in buttock and SI has impacted activity tolerance and her ability to focus on knee ex LTG Duration 12/07/22 One Impairment right knee pain Impairment 4/10 pay scale, worst at night and with descending stairs Senior Living Goal (LTG) Decrease pain to no greater than 2/10 with all usual activities and be able to sleep without being woken due to right knee pain and be able to descend stairs without pain 10/07/22: pain 0-4/10, using small pillow between knees, agreeable to try larger pillow as shown in PT LTG Duration 12/07/22 Assessment Summary Assessment Patient urged to remember self -massage with rolling pin as part of HEP due to tightness right lateral quad, ITB. Good tolerance for ther ex today. Instructed to not push to point of pain with aquatic exercise class. Instructed to continue to try to resume hip exercises as tolerated. Physical Therapy Plan Frequency and Duration Frequency of Treatment 2x/Week Duration of treatment (weeks) 6 Plan of Care Start Date 10/07/22 Plan of Care End Date 12/07/22 Therapeutic Interventions Therapeutic Interventions Home Exercise Program,Joint Mobilizations,Manual Therapy, Neuromuscular Re-education, Patient/Caregiver Education, Self-Care/Home Management,Soft Tissue Mobilization,Taping, Therapeutic Activities, Therapeutic Exercises Modalities Cold Pack/Ice Massage,Electric Stimulation,Hot Packs, Infrared Therapy,Ultrasound Next Visit Focus/Plan Next Note Type Treatment Note Next Visit Plan Progress core stab, LE strengthening ex and LE flexibility ex as tolerated. Manual to piriformis, TFL , glut med, and quads PRN. Modalities PRN
--- NOTE | 2022-10-21 11:45 | PT.OTN ---
Current Diagnoses Unilateral primary osteoarthritis, right knee (10/21/22) Physical Therapy Treatment Note PT-OP-A Visit Information Start: 08/26/22 08:09 Freq: Status: Active Protocol: Document 10/21/22 11:00 [facility] (Rec: 10/21/22 11:45 [facility] [id number]) Out-Patient Physical Therapy Visit Information Visit Information Visit Type Treatment Note Visit Start Time 11:00 Visit Stop Time 11:50 Total Visit Minutes 50 Visit Number 8 PT-OP-B Current Condition Start: 08/26/22 08:09 Freq: Status: Active Protocol: Document 10/10/22 12:34 [facility] (Rec: 10/10/22 13:17 [facility] [id number]) Current Condition History of Current Condition Onset Date 2020 Current Complaints right knee pain History of Current Condition Progressive worsening of right knee pain especially at night , tried pillow between her knees. Pursued treatment when was bad enough to interrupt sleep. Went to orthopedist 2x, had PT with no success different clinic. Had injection, and started water aerobics, has been better since then until recently started to hurt again. No ice or heat, no HEP. Prior Treatments and Tests x-ray in ortho office: arthritis inside of knee. Seated yoga 1x/wk, water aerobics 2x/wk Future Testing and Treatments Planned Return to ortho if PT not helpful. Treatment Goals Patient/Caregiver Goals not be woken up due to pain, squat, do usual exercises for sciatic without pain, go down stairs without pain PT-OP-C Subjective Start: 08/26/22 08:09 Freq: Status: Active Protocol: Document 10/21/22 11:00 [facility] (Rec: 10/21/22 11:45 [facility] [id number]) OP-PT Subjective Patient Comments Patient Comments Pt continues to note posterior hip/thigh pain for days following her PT sessions. Admits she hasn't doen her HEP since Friday because she was so sore. Does note her sciatic pain has improved. PT-OP-E Functional Tests Start: 08/26/22 08:09 Freq: Status: Active Protocol: Document 08/26/22 09:08 [facility] (Rec: 08/26/22 16:34 [facility] [id number]) Functional Tests Five Times Sit to Stand Test Score 22 sec Comments dec weight-bearing right PT-OP-G Mobility & Gait Start: 08/26/22 08:09 Freq: Status: Active Protocol: Document 08/26/22 09:08 [facility] (Rec: 08/26/22 16:34 [facility] [id number]) OP Gait Assessment Gait Gait Assistance Required: Independent Able to Maintain Weight Bearing Status Yes During Gait Assistive Devices Assistive Device None Gait Deviations General Gait Pattern Ataxic,Decreased Feet Clearance Stair Climbing Evaluation Evaluation Level of Assist On Stairs Independent Devices Stair Climbing Assistive Devices Left Railing,Right Railing Technique/Endurance Stair Climbing Direction Ascend and Descend Stair Climbing Technique Step Over Step Comments Stair Climbing Comments descend painful PT-OP-J Posture/Palpation/Skin Start: 08/26/22 08:09 Freq: Status: Active Protocol: Document 08/26/22 09:08 [facility] (Rec: 08/26/22 09:49 [facility] [id number]) Posture Evaluation Position Standing Knee Posture (L) Neutral,(R) Neutral Patellar Posture (L) Neutral,(R) Neutral Foot Arch (L) Medium Arch,(R) Low Arch Palpation Assessment Location One Palpation Location right knee Palpation Findings Tenderness Palpation Details medial joint line PT-OP-K Range of Motion Start: 08/26/22 08:09 Freq: Status: Active Protocol: Document 08/26/22 09:08 [facility] (Rec: 08/26/22 09:49 [facility] [id number]) Hip Goniometric Range of Motion Hip Right Straight Leg Raise 45 Extension 5 Abduction 30 Internal Rotation 30 External Rotation 50 Comments mod quad tightness Left Straight Leg Raise 45 Extension 5 Abduction 30 Internal Rotation 30 External Rotation 65 Comments mod quad tightness Knee Goniometric Range of Motion Knee marcella Knee ROM WFL Yes PT-OP-L Special Tests Start: 08/26/22 08:09 Freq: Status: Active Protocol: Document 08/26/22 09:08 [facility] (Rec: 08/26/22 16:34 [facility] [id number]) Special Tests Knee Special Tests Apley's Compression Test Results -ve Kristin's Test Results -ve Valgus- 25 Degrees Test Results -ve Varus- 0 Degrees Test Results -ve Varus- 25 Degrees Test Results -ve PT-OP-M Strength Start: 08/26/22 08:09 Freq: Status: Active Protocol: Document 08/26/22 09:08 [facility] (Rec: 08/26/22 16:34 [facility] [id number]) Hip Strength Hip Manual Muscle Testing Right Flexion (L2) 4+ Good+ Extension (S1) 4- Good- Abduction 4 Good Adduction 4+ Good+ External Rotation 4- Good- Internal Rotation 4+ Good+ Left Flexion (L2) 4+ Good+ Extension (S1) 4- Good- Abduction 4 Good Adduction 4 Good External Rotation 4- Good- Internal Rotation 4+ Good+ Knee Strength Knee Manual Muscle Testing Right Flexion (S2) 4 Good Extension (L3) 4 Good Left Flexion (S2) 5 Normal Extension (L3) 5 Normal PT-OP-Q Treatments Start: 08/26/22 08:09 Freq: Status: Active Protocol: Document 10/21/22 11:00 [facility] (Rec: 10/21/22 11:45 [facility] [id number]) Cardio Equipment Recumbent Bicycle Duration (Minutes) 6 Resistance 3 Seat Position 8 Gym Equipment Therapeutic Ball Hip flexion Exercise Details Resisted hip/knee flexion Ball Size/Color Red - 55 cm Campbell Body Position Supine LTR Exercise Details LTR Ball Size/Color Red - 55 cm Body Position Supine Therapeutic Exercises Supine Exercises windshield wiper Reps/Minutes 2x30 Comments marcella, gentle stretch HS stretch Equipment Used manual Reps/Minutes 2x30 IT band stretch Equipment Used manual Reps/Minutes 2x30 Sidelying Exercises reverse clamshell Sidelying Exercise Name Reverse Clamshell Side left Reps/Minutes x20 Comments caused pain on R clamshell Sidelying Exercise Name Clamshell Side bilateral Reps/Minutes x20 Manual Therapy Treatment Soft Tissue Mobilization right quads Mobilization Type Instrument Assisted,Myofascial Release,Strumming Intensity/Depth Moderate Body Position Hooklying Comments rolling pin PT-OP-R Modalities Start: 08/26/22 08:09 Freq: Status: Active Protocol: Document 10/21/22 11:00 [facility] (Rec: 10/21/22 11:45 [facility] [id number]) Hot Pack/Cold Pack Treatment Cold Pack Location R posterior hip, piriformis Patient Position Supine Comments LEs elevated on bolster PT-OP-T Assessment and Plan Start: 08/26/22 08:09 Freq: Status: Active Protocol: Document 10/21/22 11:00 [facility] (Rec: 10/21/22 11:45 [facility] [id number]) Physical Therapy Assessment Goals Four Impairment decreased arch right Impairment malalignment right LE contributing to right knee pain [employer] Goal (LTG) Patient to obtain orthotics for arch support and improved alignment right LE 10/07/22: has not done LTG Duration 12/07/22 Three Impairment weakness right LE Short Term Goal (STG) Patient to be instructed in HEP for purposes of knee flexibility and strengthening 10/07/22: modfied HEP today due to decrease tolerance for any hip ex, issued updated HO empasis on knee strengthening and flexibility, poor tolerance hip STG Duration 11/07/22 Nursing Home Goal (LTG) Patient to be independent and compliant with HEP and demonstrate 5/ muscle strength, and flexibility of hamstrings to at least 70 deg SLR. 10/07/22: goal progress LTG Duration 12/07/22 Two Impairment activity tolerance Impairment LEFS score 69% Nursing Home Goal (LTG) Improve LEFS score to at least 80% as measure of improved functional activity tolerance 10/07/22: score 70%, reports improved flexibility in knees, but pain in buttock and SI has impacted activity tolerance and her ability to focus on knee ex LTG Duration 12/07/22 One Impairment right knee pain Impairment 4/10 pay scale, worst at night and with descending stairs Nursing Home Goal (LTG) Decrease pain to no greater than 2/10 with all usual activities and be able to sleep without being woken due to right knee pain and be able to descend stairs without pain 10/07/22: pain 0-4/10, using small pillow between knees, agreeable to try larger pillow as shown in PT LTG Duration 12/07/22 Assessment Summary Assessment Attempted to perform minimal strenuous activity to limit negative reaction following PT , pt instructed to report on how she felt next visit. Still had to stop a few different activities due to pt complaints of pain. Physical Therapy Plan Frequency and Duration Frequency of Treatment 2x/Week Duration of treatment (weeks) 6 Plan of Care Start Date 10/07/22 Plan of Care End Date 12/07/22 Therapeutic Interventions Therapeutic Interventions Home Exercise Program,Joint Mobilizations,Manual Therapy, Neuromuscular Re-education, Patient/Caregiver Education, Self-Care/Home Management,Soft Tissue Mobilization,Taping, Therapeutic Activities, Therapeutic Exercises Modalities Cold Pack/Ice Massage,Electric Stimulation,Hot Packs, Infrared Therapy,Ultrasound Next Visit Focus/Plan Next Note Type Treatment Note Next Visit Plan Progress core stab, LE strengthening ex and LE flexibility ex as tolerated. Manual to piriformis, TFL , glut med, and quads PRN. Modalities PRN
--- NOTE | 2022-10-23 10:56 | PT.OTN ---
Current Diagnoses Unilateral primary osteoarthritis, right knee (10/23/22) Physical Therapy Treatment Note PT-OP-A Visit Information Start: 08/26/22 08:09 Freq: Status: Active Protocol: Document 10/23/22 10:15 DCW (Rec: 10/23/22 10:56 [facility] [id number]) Out-Patient Physical Therapy Visit Information Visit Information Visit Start Time 10:15 Visit Stop Time 11:05 Total Visit Minutes 50 Visit Number 9 Number of SMOKE ROOM OPERATOR Visits 0 PT-OP-B Current Condition Start: 08/26/22 08:09 Freq: Status: Active Protocol: Document 10/10/22 12:34 SAK (Rec: 10/10/22 13:17 SAK [id number]) Current Condition History of Current Condition Onset Date 2020 Current Complaints right knee pain History of Current Condition Progressive worsening of right knee pain especially at night , tried pillow between her knees. Pursued treatment when was bad enough to interrupt sleep. Went to orthopedist 2x, had PT with no success different clinic. Had injection, and started water aerobics, has been better since then until recently started to hurt again. No ice or heat, no HEP. Prior Treatments and Tests x-ray in ortho office: arthritis inside of knee. Seated yoga 1x/wk, water aerobics 2x/wk Future Testing and Treatments Planned Return to ortho if PT not helpful. Treatment Goals Patient/Caregiver Goals not be woken up due to pain, squat, do usual exercises for sciatic without pain, go down stairs without pain PT-OP-C Subjective Start: 08/26/22 08:09 Freq: Status: Active Protocol: Document 10/23/22 10:15 DCW (Rec: 10/23/22 10:56 [facility] [id number]) OP-PT Subjective Patient Comments Patient Comments I still got soreness, but I'm better than I was Friday. PT-OP-E Functional Tests Start: 08/26/22 08:09 Freq: Status: Active Protocol: Document 08/26/22 09:08 SAK (Rec: 08/26/22 16:34 SAK [id number]) Functional Tests Five Times Sit to Stand Test Score 22 sec Comments dec weight-bearing right PT-OP-G Mobility & Gait Start: 08/26/22 08:09 Freq: Status: Active Protocol: Document 08/26/22 09:08 SAK (Rec: 08/26/22 16:34 [facility] [id number]) OP Gait Assessment Gait Gait Assistance Required: Independent Able to Maintain Weight Bearing Status Yes During Gait Assistive Devices Assistive Device None Gait Deviations General Gait Pattern Ataxic,Decreased Feet Clearance Stair Climbing Evaluation Evaluation Level of Assist On Stairs Independent Devices Stair Climbing Assistive Devices Left Railing,Right Railing Technique/Endurance Stair Climbing Direction Ascend and Descend Stair Climbing Technique Step Over Step Comments Stair Climbing Comments descend painful PT-OP-J Posture/Palpation/Skin Start: 08/26/22 08:09 Freq: Status: Active Protocol: Document 08/26/22 09:08 [facility] (Rec: 08/26/22 09:49 [facility] [id number]) Posture Evaluation Position Standing Knee Posture (L) Neutral,(R) Neutral Patellar Posture (L) Neutral,(R) Neutral Foot Arch (L) Medium Arch,(R) Low Arch Palpation Assessment Location One Palpation Location right knee Palpation Findings Tenderness Palpation Details medial joint line PT-OP-K Range of Motion Start: 08/26/22 08:09 Freq: Status: Active Protocol: Document 08/26/22 09:08 [facility] (Rec: 08/26/22 09:49 [facility] [id number]) Hip Goniometric Range of Motion Hip Right Straight Leg Raise 45 Extension 5 Abduction 30 Internal Rotation 30 External Rotation 50 Comments mod quad tightness Left Straight Leg Raise 45 Extension 5 Abduction 30 Internal Rotation 30 External Rotation 65 Comments mod quad tightness Knee Goniometric Range of Motion Knee marcella Knee ROM WFL Yes PT-OP-L Special Tests Start: 08/26/22 08:09 Freq: Status: Active Protocol: Document 08/26/22 09:08 [facility] (Rec: 08/26/22 16:34 [facility] [id number]) Special Tests Knee Special Tests Apley's Compression Test Results -ve Kristin's Test Results -ve Valgus- 25 Degrees Test Results -ve Varus- 0 Degrees Test Results -ve Varus- 25 Degrees Test Results -ve PT-OP-M Strength Start: 08/26/22 08:09 Freq: Status: Active Protocol: Document 08/26/22 09:08 [facility] (Rec: 08/26/22 16:34 [facility] [id number]) Hip Strength Hip Manual Muscle Testing Right Flexion (L2) 4+ Good+ Extension (S1) 4- Good- Abduction 4 Good Adduction 4+ Good+ External Rotation 4- Good- Internal Rotation 4+ Good+ Left Flexion (L2) 4+ Good+ Extension (S1) 4- Good- Abduction 4 Good Adduction 4 Good External Rotation 4- Good- Internal Rotation 4+ Good+ Knee Strength Knee Manual Muscle Testing Right Flexion (S2) 4 Good Extension (L3) 4 Good Left Flexion (S2) 5 Normal Extension (L3) 5 Normal PT-OP-Q Treatments Start: 08/26/22 08:09 Freq: Status: Active Protocol: Document 10/23/22 10:15 DCW (Rec: 10/23/22 10:56 DCW [id number]) Cardio Equipment Recumbent Stepper (Sci-Fit) Duration (Minutes) 6 Resistance 2 Seat Position 10 Other cues for pushing through heels , neutral LE alignment Gym Equipment Therapeutic Ball Hip flexion Exercise Details Resisted hip/knee flexion Ball Size/Color Red - 55 cm Beaver Body Position Supine LTR Exercise Details LTR Ball Size/Color Red - 55 cm Body Position Supine Therapeutic Exercises Supine Exercises SKTC Reps/Minutes 2x30 HS stretch Equipment Used manual Reps/Minutes 2x30 IT band stretch Equipment Used manual Reps/Minutes 2x30 Standing Exercises step-ups Standing Exercise Name Step-ups Side bilateral Equipment Used 4 step calf stretch Standing Exercise Name calf stretch Equipment Used DANK Reps/Minutes 2x30 Manual Therapy Treatment Soft Tissue Mobilization right quads Mobilization Type Instrument Assisted,Myofascial Release,Strumming Intensity/Depth Moderate Body Position Hooklying Comments rolling pin PT-OP-R Modalities Start: 08/26/22 08:09 Freq: Status: Active Protocol: Document 10/23/22 10:15 DCW (Rec: 10/23/22 10:56 DC [id number]) Hot Pack/Cold Pack Treatment Cold Pack Location R posterior hip, piriformis Patient Position Supine Comments LEs elevated on bolster PT-OP-T Assessment and Plan Start: 08/26/22 08:09 Freq: Status: Active Protocol: Document 10/23/22 10:15 DCW (Rec: 10/23/22 10:56 [facility] [id number]) Physical Therapy Assessment Goals Four Impairment decreased arch right Impairment malalignment right LE contributing to right knee pain Plastic Press Molder Goal (LTG) Patient to obtain orthotics for arch support and improved alignment right LE 10/07/22: has not done LTG Duration 12/07/22 Three Impairment weakness right LE Short Term Goal (STG) Patient to be instructed in HEP for purposes of knee flexibility and strengthening 10/07/22: modfied HEP today due to decrease tolerance for any hip ex, issued updated HO empasis on knee strengthening and flexibility, poor tolerance hip STG Duration 11/07/22 Usp Goal (LTG) Patient to be independent and compliant with HEP and demonstrate 5/5 muscle strength, and flexibility of hamstrings to at least 70 deg SLR. 10/07/22: goal progress LTG Duration 12/07/22 Two Impairment activity tolerance Impairment LEFS score 69% Usp Goal (LTG) Improve LEFS score to at least 80% as measure of improved functional activity tolerance 10/07/22: score 70%, reports improved flexibility in knees, but pain in buttock and SI has impacted activity tolerance and her ability to focus on knee ex LTG Duration 12/07/22 One Impairment right knee pain Impairment 4/10 pay scale, worst at night and with descending stairs Plastic Press Molder Goal (LTG) Decrease pain to no greater than 2/10 with all usual activities and be able to sleep without being woken due to right knee pain and be able to descend stairs without pain 10/07/22: pain 0-4/10, using small pillow between knees, agreeable to try larger pillow as shown in PT LTG Duration 12/07/22 Assessment Summary Assessment Pt reports she felt much better than usual following her last visit, felt like her muscle tightness loosened up a few hours after her appointment. Attempted to replicate results again, but added in some more strengthening, including step- ups Physical Therapy Plan Frequency and Duration Frequency of Treatment 2x/Week Duration of treatment (weeks) 6 Plan of Care Start Date 10/07/22 Plan of Care End Date 12/07/22 Therapeutic Interventions Therapeutic Interventions Home Exercise Program,Joint Mobilizations,Manual Therapy, Neuromuscular Re-education, Patient/Caregiver Education, Self-Care/Home Management,Soft Tissue Mobilization,Taping, Therapeutic Activities, Therapeutic Exercises Modalities Cold Pack/Ice Massage,Electric Stimulation,Hot Packs, Infrared Therapy,Ultrasound Next Visit Focus/Plan Next Note Type Treatment Note Next Visit Plan Progress core stab, LE strengthening ex and LE flexibility ex as tolerated. Manual to piriformis, TFL , glut med, and quads PRN. Modalities PRN
--- NOTE | 2022-10-31 14:46 | PT.OTN ---
Current Diagnoses Unilateral primary osteoarthritis, right knee (10/31/22) Physical Therapy Treatment Note PT-OP-A Visit Information Start: 08/26/22 08:09 Freq: Status: Active Protocol: Document 10/31/22 14:00 DCW (Rec: 10/31/22 14:46 DCW [id number]) Out-Patient Physical Therapy Visit Information Visit Information Visit Type Treatment Note Visit Start Time 14:00 Visit Stop Time 14:50 Total Visit Minutes 50 Visit Number 10 Number of MANAGER OF GLOBAL Visits 0 PT-OP-B Current Condition Start: 08/26/22 08:09 Freq: Status: Active Protocol: Document 10/10/22 12:34 SAK (Rec: 10/10/22 13:17 SAK [id number]) Current Condition History of Current Condition Onset Date 2020 Current Complaints right knee pain History of Current Condition Progressive worsening of right knee pain especially at night , tried pillow between her knees. Pursued treatment when was bad enough to interrupt sleep. Went to orthopedist 2x, had PT with no success different clinic. Had injection, and started water aerobics, has been better since then until recently started to hurt again. No ice or heat, no HEP. Prior Treatments and Tests x-ray in ortho office: arthritis inside of knee. Seated yoga 1x/wk, water aerobics 2x/wk Future Testing and Treatments Planned Return to ortho if PT not helpful. Treatment Goals Patient/Caregiver Goals not be woken up due to pain, squat, do usual exercises for sciatic without pain, go down stairs without pain PT-OP-C Subjective Start: 08/26/22 08:09 Freq: Status: Active Protocol: Document 10/31/22 14:00 DCW (Rec: 10/31/22 14:46 DCW [id number]) OP-PT Subjective Patient Comments Patient Comments Pt still noting fairly constant pain in posterior hip and upper thighs. PT-OP-E Functional Tests Start: 08/26/22 08:09 Freq: Status: Active Protocol: Document 08/26/22 09:08 SAK (Rec: 08/26/22 16:34 SAK [id number]) Functional Tests Five Times Sit to Stand Test Score 22 sec Comments dec weight-bearing right PT-OP-G Mobility & Gait Start: 08/26/22 08:09 Freq: Status: Active Protocol: Document 08/26/22 09:08 SAK (Rec: 08/26/22 16:34 [facility] [id number]) OP Gait Assessment Gait Gait Assistance Required: Independent Able to Maintain Weight Bearing Status Yes During Gait Assistive Devices Assistive Device None Gait Deviations General Gait Pattern Ataxic,Decreased Feet Clearance Stair Climbing Evaluation Evaluation Level of Assist On Stairs Independent Devices Stair Climbing Assistive Devices Left Railing,Right Railing Technique/Endurance Stair Climbing Direction Ascend and Descend Stair Climbing Technique Step Over Step Comments Stair Climbing Comments descend painful PT-OP-J Posture/Palpation/Skin Start: 08/26/22 08:09 Freq: Status: Active Protocol: Document 08/26/22 09:08 [facility] (Rec: 08/26/22 09:49 [facility] [id number]) Posture Evaluation Position Standing Knee Posture (L) Neutral,(R) Neutral Patellar Posture (L) Neutral,(R) Neutral Foot Arch (L) Medium Arch,(R) Low Arch Palpation Assessment Location One Palpation Location right knee Palpation Findings Tenderness Palpation Details medial joint line PT-OP-K Range of Motion Start: 08/26/22 08:09 Freq: Status: Active Protocol: Document 08/26/22 09:08 [facility] (Rec: 08/26/22 09:49 [facility] [id number]) Hip Goniometric Range of Motion Hip Right Straight Leg Raise 45 Extension 5 Abduction 30 Internal Rotation 30 External Rotation 50 Comments mod quad tightness Left Straight Leg Raise 45 Extension 5 Abduction 30 Internal Rotation 30 External Rotation 65 Comments mod quad tightness Knee Goniometric Range of Motion Knee marcella Knee ROM WFL Yes PT-OP-L Special Tests Start: 08/26/22 08:09 Freq: Status: Active Protocol: Document 08/26/22 09:08 [facility] (Rec: 08/26/22 16:34 [facility] [id number]) Special Tests Knee Special Tests Apley's Compression Test Results -ve Kristin's Test Results -ve Valgus- 25 Degrees Test Results -ve Varus- 0 Degrees Test Results -ve Varus- 25 Degrees Test Results -ve PT-OP-M Strength Start: 08/26/22 08:09 Freq: Status: Active Protocol: Document 08/26/22 09:08 [facility] (Rec: 08/26/22 16:34 [facility] [id number]) Hip Strength Hip Manual Muscle Testing Right Flexion (L2) 4+ Good+ Extension (S1) 4- Good- Abduction 4 Good Adduction 4+ Good+ External Rotation 4- Good- Internal Rotation 4+ Good+ Left Flexion (L2) 4+ Good+ Extension (S1) 4- Good- Abduction 4 Good Adduction 4 Good External Rotation 4- Good- Internal Rotation 4+ Good+ Knee Strength Knee Manual Muscle Testing Right Flexion (S2) 4 Good Extension (L3) 4 Good Left Flexion (S2) 5 Normal Extension (L3) 5 Normal PT-OP-Q Treatments Start: 08/26/22 08:09 Freq: Status: Active Protocol: Document 10/31/22 14:00 DCW (Rec: 10/31/22 14:46 DCW [id number]) Cardio Equipment Recumbent Stepper (Sci-Fit) Duration (Minutes) 6 Resistance 3 Seat Position 10 Therapeutic Exercises Supine Exercises SKTC Reps/Minutes 2x30 HS stretch Equipment Used manual Reps/Minutes 2x30 IT band stretch Equipment Used manual Reps/Minutes 2x30 Standing Exercises Hip Abduction Standing Exercise Name Hip Abduction Side bilateral Resistance none TKE Standing Exercise Name TKE Side bilateral Resistance [place] Manual Therapy Treatment Soft Tissue Mobilization right quads Body Location bilateral Mobilization Type Instrument Assisted,Myofascial Release,Strumming Intensity/Depth Moderate Body Position Hooklying Comments rolling pin PT-OP-R Modalities Start: 08/26/22 08:09 Freq: Status: Active Protocol: Document 10/31/22 14:00 DCW (Rec: 10/31/22 14:46 DC [id number]) Hot Pack/Cold Pack Treatment Hot Pack Location R posterior hip, piriformis Patient Position Supine Treatment Duration (minutes) 10 Patient Tolerance Good PT-OP-T Assessment and Plan Start: 08/26/22 08:09 Freq: Status: Active Protocol: Document 10/31/22 14:00 DCW (Rec: 10/31/22 14:46 [facility] [id number]) Physical Therapy Assessment Goals Four Impairment decreased arch right Impairment malalignment right LE contributing to right knee pain 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 V Ring 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 Goal (LTG) Patient to obtain orthotics for arch support and improved alignment right LE 10/07/22: has not done LTG Duration 12/07/22 Three Impairment weakness right LE Short Term Goal (STG) Patient to be instructed in HEP for purposes of knee flexibility and strengthening 10/07/22: modfied HEP today due to decrease tolerance for any hip ex, issued updated HO empasis on knee strengthening and flexibility, poor tolerance hip STG Duration 11/07/22 Commutator V Ring Assembler Goal (LTG) Patient to be independent and compliant with HEP and demonstrate 5/5 muscle strength, and flexibility of hamstrings to at least 70 deg SLR. 10/07/22: goal progress LTG Duration 12/07/22 Two Impairment activity tolerance Impairment LEFS score 69% Commutator V Ring Assembler Goal (LTG) Improve LEFS score to at least 80% as measure of improved functional activity tolerance 10/07/22: score 70%, reports improved flexibility in knees, but pain in buttock and SI has impacted activity tolerance and her ability to focus on knee ex LTG Duration 12/07/22 One Impairment right knee pain Impairment 4/10 pay scale, worst at night and with descending stairs Commutator V Ring Assembler Goal (LTG) Decrease pain to no greater than 2/10 with all usual activities and be able to sleep without being woken due to right knee pain and be able to descend stairs without pain 10/07/22: pain 0-4/10, using small pillow between knees, agreeable to try larger pillow as shown in PT LTG Duration 12/07/22 Assessment Summary Assessment Pt unsure about making any further appointments following her last scheduled visit, would like to touch base with her PCP regarding continued posterior hip/upper thigh pain . Was interested in TKE, happy to find an exercise that didn 't seem to flare her up, requested HEP hand-out to help her remember, which was provided. Physical Therapy Plan Frequency and Duration Frequency of Treatment 2x/Week Duration of treatment (weeks) 6 Plan of Care Start Date 10/07/22 Plan of Care End Date 12/07/22 Therapeutic Interventions Therapeutic Interventions Home Exercise Program,Joint Mobilizations,Manual Therapy, Neuromuscular Re-education, Patient/Caregiver Education, Self-Care/Home Management,Soft Tissue Mobilization,Taping, Therapeutic Activities, Therapeutic Exercises Modalities Cold Pack/Ice Massage,Electric Stimulation,Hot Packs, Infrared Therapy,Ultrasound Next Visit Focus/Plan Next Note Type Treatment Note Next Visit Plan Progress core stab, LE strengthening ex and LE flexibility ex as tolerated. Manual to piriformis, TFL , glut med, and quads PRN. Modalities PRN
--- NOTE | 2022-11-27 17:55 | PT.OTRE ---
Current Diagnoses Unilateral primary osteoarthritis, right knee (11/27/22) Past Medical History (Last Reviewed 09/25/21 @ 15:37 by Rafal Keith MD) Anxiety (~1994) Chicken pox (~1951) Depression Hx of breast cancer Insomnia (~09/22/21) Osteoarthritis (~2004) Osteopenia (~2007) Plantar warts (~1954) Stenosis of carotid artery Surgical History (Last Reviewed 09/25/21 @ 15:37 by Rafal Keith MD) Anesthesia Status post cholecystectomy (~2003) Status post hysterectomy (~1991) Visit Care Team Role Provider Type Mere Louis MD Family Provider Physician Primary Care Provider Specialty: Family Practice Address: [address] [place] [address], [id number] Email: [email or web address] Alena Ceballos PA-C Attending Provider Advanced Brim Molder Referring Provider Specialty: Orthopedics Orthopedic Surgery Address: [address] [place] [address], [id number] Email: [email or web address] Physical Therapy Re-Evaluation PT-OP-A Visit Information Start: 08/26/22 08:09 Freq: Status: Active Protocol: Document 11/27/22 08:42 SAK (Rec: 11/27/22 09:33 SAK [id number]) Out-Patient Physical Therapy Visit Information Visit Information Visit Type Treatment Note Visit Start Time 08:45 Visit Stop Time 09:40 Total Visit Minutes 55 Visit Number 11 Evaluation Information Evaluation Date 08/26/22 PT-OP-B Current Condition Start: 08/26/22 08:09 Freq: Status: Active Protocol: Document 11/27/22 08:42 SAK (Rec: 11/27/22 09:33 SAK [id number]) Current Condition History of Current Condition Onset Date 2020 Current Complaints right knee pain History of Current Condition Progressive worsening of right knee pain especially at night , tried pillow between her knees. Pursued treatment when was bad enough to interrupt sleep. Went to orthopedist 2x, had PT with no success different clinic. Had injection, and started water aerobics, has been better since then until recently started to hurt again. No ice or heat, no HEP. Prior Treatments and Tests x-ray in ortho office: arthritis inside of knee. Seated yoga 1x/wk, water aerobics 2x/wk Future Testing and Treatments Planned Return to ortho if PT not helpful. PT-OP-C Subjective Start: 08/26/22 08:09 Freq: Status: Active Protocol: Document 11/27/22 08:42 SAK (Rec: 11/27/22 09:33 SAK [id number]) OP-PT Subjective Patient Comments Patient Comments Hasn't exercised as much with HEP due to aquatic ex 2x/wk, travel. Pain in right knee has moved more anterior, makes sleeping a little better. Improved flexibility. Today is last scheduled day, wants to schedule a follow-up appointment PT-OP-E Functional Tests Start: 08/26/22 08:09 Freq: Status: Active Protocol: Document 08/26/22 09:08 [facility] (Rec: 08/26/22 16:34 [facility] [id number]) Functional Tests Five Times Sit to Stand Test Score 22 sec Comments dec weight-bearing right PT-OP-G Mobility & Gait Start: 08/26/22 08:09 Freq: Status: Active Protocol: Document 08/26/22 09:08 [facility] (Rec: 08/26/22 16:34 [facility] [id number]) OP Gait Assessment Gait Gait Assistance Required: Independent Able to Maintain Weight Bearing Status Yes During Gait Assistive Devices Assistive Device None Gait Deviations General Gait Pattern Ataxic,Decreased Feet Clearance Stair Climbing Evaluation Evaluation Level of Assist On Stairs Independent Devices Stair Climbing Assistive Devices Left Railing,Right Railing Technique/Endurance Stair Climbing Direction Ascend and Descend Stair Climbing Technique Step Over Step Comments Stair Climbing Comments descend painful PT-OP-J Posture/Palpation/Skin Start: 08/26/22 08:09 Freq: Status: Active Protocol: Document 08/26/22 09:08 [facility] (Rec: 08/26/22 09:49 [facility] [id number]) Posture Evaluation Position Standing Knee Posture (L) Neutral,(R) Neutral Patellar Posture (L) Neutral,(R) Neutral Foot Arch (L) Medium Arch,(R) Low Arch Palpation Assessment Location One Palpation Location right knee Palpation Findings Tenderness Palpation Details medial joint line PT-OP-K Range of Motion Start: 08/26/22 08:09 Freq: Status: Active Protocol: Document 08/26/22 09:08 SAK (Rec: 08/26/22 09:49 [facility] [id number]) Hip Goniometric Range of Motion Hip Measured in Degrees Right Straight Leg Raise 45 Extension 5 Abduction 30 Internal Rotation 30 External Rotation 50 Comments mod quad tightness Left Straight Leg Raise 45 Extension 5 Abduction 30 Internal Rotation 30 External Rotation 65 Comments mod quad tightness Knee Goniometric Range of Motion Knee Measured in Degrees marcella Knee ROM WFL Yes PT-OP-L Special Tests Start: 08/26/22 08:09 Freq: Status: Active Protocol: Document 08/26/22 09:08 [facility] (Rec: 08/26/22 16:34 [facility] [id number]) Special Tests Knee Special Tests Apley's Compression Test Results -ve Kristin's Test Results -ve Valgus- 25 Degrees Test Results -ve Varus- 0 Degrees Test Results -ve Varus- 25 Degrees Test Results -ve PT-OP-M Strength Start: 08/26/22 08:09 Freq: Status: Active Protocol: Document 08/26/22 09:08 [facility] (Rec: 08/26/22 16:34 [facility] [id number]) Hip Strength Hip Manual Muscle Testing Right Flexion (L2) 4+ Good+ Extension (S1) 4- Good- Abduction 4 Good Adduction 4+ Good+ External Rotation 4- Good- Internal Rotation 4+ Good+ Left Flexion (L2) 4+ Good+ Extension (S1) 4- Good- Abduction 4 Good Adduction 4 Good External Rotation 4- Good- Internal Rotation 4+ Good+ Knee Strength Knee Manual Muscle Testing Right Flexion (S2) 4 Good Extension (L3) 4 Good Left Flexion (S2) 5 Normal Extension (L3) 5 Normal PT-OP-Q Treatments Start: 08/26/22 08:09 Freq: Status: Active Protocol: Document 11/27/22 08:42 [facility] (Rec: 11/27/22 09:33 [facility] [id number]) Cardio Equipment Recumbent Stepper (Sci-Fit) Duration (Minutes) 8 Resistance 3 Seat Position 10 Other cues for LE alignment Therapeutic Exercises Supine Exercises march Reps/Minutes 10x Comments cues for core stab glut set Reps/Minutes 10x5 SAQ Reps/Minutes 10x5 Moise stretch Reps/Minutes 2x30 Comments manual for neutral LE alignment, inc quad stretch quad set Reps/Minutes 10x5 TA Reps/Minutes 5x gluteal set Reps/Minutes 10x5 HS stretch Equipment Used manual, strap Reps/Minutes 2x30 IT band stretch Equipment Used manual, strap Reps/Minutes 2x30 ball squeeze Reps/Minutes 2x30 Comments pillow bridge Comments cues for tightening, gentle lift Prone Exercises quad stretch Prone Exercise Name review next session Standing Exercises calf stretch Standing Exercise Name calf stretch Equipment Used DANK Reps/Minutes 2x30 Self-Care/Home Management Treatment Education Patient Education Body Mechanics,Home Exercise Program,Pain Management, Posture Other Education stressed importance of consistent HEP, core stab PT-OP-R Modalities Start: 08/26/22 08:09 Freq: Status: Active Protocol: Document 10/31/22 14:00 DCW (Rec: 10/31/22 14:46 DCW [id number]) Hot Pack/Cold Pack Treatment Hot Pack Location R posterior hip, piriformis Patient Position Supine Treatment Duration (minutes) 10 Patient Tolerance Good PT-OP-T Assessment and Plan Start: 08/26/22 08:09 Freq: Status: Active Protocol: Document 11/27/22 08:42 SAK (Rec: 11/27/22 09:33 SAK [id number]) Physical Therapy Assessment Goals Four Impairment decreased arch right Impairment malalignment right LE contributing to right knee pain Director Industrial Nursing Goal (LTG) Patient to obtain orthotics for arch support and improved alignment right LE 10/07/22: has not done 11/27/22: has not obtained arch support LTG Duration 02/07/23 Three Impairment weakness right LE Short Term Goal (STG) Patient to be instructed in HEP for purposes of knee flexibility and strengthening 10/07/22: modfied HEP today due to decrease tolerance for any hip ex, issued updated HO empasis on knee strengthening and flexibility, poor tolerance hip STG Duration goal met Residential Goal (LTG) Patient to be independent and compliant with HEP and demonstrate 09/20 muscle strength, and flexibility of hamstrings to at least 70 deg SLR. 10/07/22: goal progress 11/27/22: goal progress though with review today patient has not been doing all exercises due to not using handouts anymore; PT stressed rationale for each ex LTG Duration 02/07/23 Two Impairment activity tolerance Impairment LEFS score 69% Director Industrial Nursing Goal (LTG) Improve LEFS score to at least 80% as measure of improved functional activity tolerance 10/07/22: score 70%, reports improved flexibility in knees, but pain in buttock and SI has impacted activity tolerance and her ability to focus on knee ex 11/27/22: 72% improved. LTG Duration 12/07/22 One Impairment right knee pain Impairment 4/10 pain scale, worst at night and with descending stairs Director Industrial Nursing Goal (LTG) Decrease pain to no greater than 2/10 with all usual activities and be able to sleep without being woken due to right knee pain and be able to descend stairs without pain 10/07/22: pain 0-4/10, using small pillow between knees, agreeable to try larger pillow as shown in PT 11/27/22: pain remains 0-4/10, reports improved sleep. LTG Duration 01/28/23 Assessment Summary Assessment In review of HEP, noted patient not performing all exercises (forgot) and has had limited progress over the past month. Recommended she return for follow-up in 1 month after doing the exercises consistently after review today. At that time recommend 2x/wk x 3 weeks further for progression of HEP and self-care. Physical Therapy Plan Frequency and Duration Frequency of Treatment 2x/Week Duration of treatment (weeks) 8 Plan of Care Start Date 11/27/22 Plan of Care End Date 01/28/23 Therapeutic Interventions Therapeutic Interventions Home Exercise Program,Joint Mobilizations,Manual Therapy, Neuromuscular Re-education, Patient/Caregiver Education, Self-Care/Home Management,Soft Tissue Mobilization,Taping, Therapeutic Activities, Therapeutic Exercises Modalities Cold Pack/Ice Massage,Electric Stimulation,Hot Packs, Infrared Therapy,Ultrasound Next Visit Focus/Plan Next Note Type Treatment Note Next Visit Plan Progress core stab, LE strengthening ex and LE flexibility ex as tolerated. Manual to piriformis, TFL , glut med, and quads PRN. Modalities PRN.
--- NOTE | 2022-11-27 17:55 | PT.OPPOC ---
Physical, Occupational & Speech Therapy At [facility] Current Diagnoses Unilateral primary osteoarthritis, right knee (11/27/22) Visit Care Team Role Provider Type Mere Louis MD Family Provider Physician Primary Care Provider Specialty: Family Practice Address: [address] [place] [address], [facility] [place], [address] Email: [email or web address] Alena Ceballos PA-C Attending Provider Advanced Tool Keeper Referring Provider Specialty: Orthopedics Orthopedic Surgery Address: [address] [place] [address], [address] Email: [email or web address] Plan Of Care PT-OP-T Assessment and Plan Start: 08/26/22 08:09 Freq: Status: Active Protocol: Document 11/27/22 08:42 SAK (Rec: 11/27/22 09:33 SAK [id number]) Physical Therapy Assessment Goals Four Impairment decreased arch right Impairment malalignment right LE contributing to right knee pain Shelter Goal (LTG) Patient to obtain orthotics for arch support and improved alignment right LE 10/07/22: has not done 11/27/22: has not obtained arch support LTG Duration 02/07/23 Three Impairment weakness right LE Short Term Goal (STG) Patient to be instructed in HEP for purposes of knee flexibility and strengthening 10/07/22: modfied HEP today due to decrease tolerance for any hip ex, issued updated HO empasis on knee strengthening and flexibility, poor tolerance hip STG Duration goal met Shelter Goal (LTG) Patient to be independent and compliant with HEP and demonstrate 5/ muscle strength, and flexibility of hamstrings to at least 70 deg SLR. 10/07/22: goal progress 11/27/22: goal progress though with review today patient has not been doing all exercises due to not using handouts anymore; PT stressed rationale for each ex LTG Duration 02/07/23 Two Impairment activity tolerance Impairment LEFS score 69% Street Cleaning Equipment Operator Goal (LTG) Improve LEFS score to at least 80% as measure of improved functional activity tolerance 10/07/22: score 70%, reports improved flexibility in knees, but pain in buttock and SI has impacted activity tolerance and her ability to focus on knee ex 11/27/22: 72% improved. LTG Duration 12/07/22 One Impairment right knee pain Impairment 4/10 pain scale, worst at night and with descending stairs Shelter Goal (LTG) Decrease pain to no greater than 2/10 with all usual activities and be able to sleep without being woken due to right knee pain and be able to descend stairs without pain 10/07/22: pain 0-4/10, using small pillow between knees, agreeable to try larger pillow as shown in PT 11/27/22: pain remains 0-4/10, reports improved sleep. LTG Duration 01/28/23 Assessment Summary Assessment In review of HEP, noted patient not performing all exercises (forgot) and has had limited progress over the past month. Recommended she return for follow-up in 1 month after doing the exercises consistently after review today. At that time recommend 2x/wk x 3 weeks further for progression of HEP and self-care. Physical Therapy Plan Frequency and Duration Frequency of Treatment 2x/Week Duration of treatment (weeks) 8 Plan of Care Start Date 11/27/22 Plan of Care End Date 01/28/23 Therapeutic Interventions Therapeutic Interventions Home Exercise Program,Joint Mobilizations,Manual Therapy, Neuromuscular Re-education, Patient/Caregiver Education, Self-Care/Home Management,Soft Tissue Mobilization,Taping, Therapeutic Activities, Therapeutic Exercises Modalities Cold Pack/Ice Massage,Electric Stimulation,Hot Packs, Infrared Therapy,Ultrasound Next Visit Focus/Plan Next Note Type Treatment Note Next Visit Plan Progress core stab, LE strengthening ex and LE flexibility ex as tolerated. Manual to piriformis, TFL , glut med, and quads PRN. Modalities PRN. Plan of Care Dates Plan of Care Start Date 11/27/22 Plan of Care End Date 01/28/23 Electronically Signed by: Randee Mendoza, PT 11/27/22 1476 If you are in agreement with this Plan of Care, please return a signed and dated copy. I have reviewed this Plan of Care and certify that the skilled therapy services above are required to meet the patient?s needs. Physician Signature Date Printed Name and Credentials Clinical Instructor Signature Printed Name and Credentials
--- NOTE | 2022-12-31 08:24 | PT.OTN ---
Current Diagnoses Unilateral primary osteoarthritis, right knee (12/30/22) Physical Therapy Treatment Note PT-OP-A Visit Information Start: 08/26/22 08:09 Freq: Status: Active Protocol: Document 12/30/22 10:30 SAK (Rec: 12/30/22 11:19 [facility] [id number]) Out-Patient Physical Therapy Visit Information Visit Information Visit Type Treatment Note Visit Start Time 09:45 Visit Stop Time 10:40 Total Visit Minutes 55 Visit Number 1 Evaluation Information Evaluation Date 08/26/22 PT-OP-B Current Condition Start: 08/26/22 08:09 Freq: Status: Active Protocol: Document 12/30/22 10:30 SAK (Rec: 12/30/22 11:19 [facility] [id number]) Current Condition History of Current Condition Onset Date 2020 Current Complaints right knee pain History of Current Condition Progressive worsening of right knee pain especially at night , tried pillow between her knees. Pursued treatment when was bad enough to interrupt sleep. Went to orthopedist 2x, had PT with no success different clinic. Had injection, and started water aerobics, has been better since then until recently started to hurt again. No ice or heat, no HEP. Prior Treatments and Tests x-ray in ortho office: arthritis inside of knee. Seated yoga 1x/wk, water aerobics 2x/wk Future Testing and Treatments Planned Return to ortho if PT not helpful. PT-OP-C Subjective Start: 08/26/22 08:09 Freq: Status: Active Protocol: Document 12/30/22 10:30 SAK (Rec: 12/30/22 11:19 [facility] [id number]) OP-PT Subjective Patient Comments Patient Comments Has gone from bad to worse, pain down legs marcella, has new order for PT for her LBP and buttock pain. Today will be last day for treatment of her knees. Then will be seen for LBP. Was so sore after last PT treatment. Pool closed this week so hasn't gone. Has been trying to wear shoes more for more support, hasn't gotten arch supports. Knee pain persists, not as bad as back and hip pain. PT-OP-E Functional Tests Start: 08/26/22 08:09 Freq: Status: Active Protocol: Document 08/26/22 09:08 SAK (Rec: 08/26/22 16:34 [facility] [id number]) Functional Tests Five Times Sit to Stand Test Score 22 sec Comments dec weight-bearing right PT-OP-G Mobility & Gait Start: 08/26/22 08:09 Freq: Status: Active Protocol: Document 08/26/22 09:08 [facility] (Rec: 08/26/22 16:34 [facility] [id number]) OP Gait Assessment Gait Gait Assistance Required: Independent Able to Maintain Weight Bearing Status Yes During Gait Assistive Devices Assistive Device None Gait Deviations General Gait Pattern Ataxic,Decreased Feet Clearance Stair Climbing Evaluation Evaluation Level of Assist On Stairs Independent Devices Stair Climbing Assistive Devices Left Railing,Right Railing Technique/Endurance Stair Climbing Direction Ascend and Descend Stair Climbing Technique Step Over Step Comments Stair Climbing Comments descend painful PT-OP-J Posture/Palpation/Skin Start: 08/26/22 08:09 Freq: Status: Active Protocol: Document 08/26/22 09:08 [facility] (Rec: 08/26/22 09:49 [facility] [id number]) Posture Evaluation Position Standing Knee Posture (L) Neutral,(R) Neutral Patellar Posture (L) Neutral,(R) Neutral Foot Arch (L) Medium Arch,(R) Low Arch Palpation Assessment Location One Palpation Location right knee Palpation Findings Tenderness Palpation Details medial joint line PT-OP-K Range of Motion Start: 08/26/22 08:09 Freq: Status: Active Protocol: Document 08/26/22 09:08 [facility] (Rec: 08/26/22 09:49 [facility] [id number]) Hip Goniometric Range of Motion Hip Right Straight Leg Raise 45 Extension 5 Abduction 30 Internal Rotation 30 External Rotation 50 Comments mod quad tightness Left Straight Leg Raise 45 Extension 5 Abduction 30 Internal Rotation 30 External Rotation 65 Comments mod quad tightness Knee Goniometric Range of Motion Knee marcella Knee ROM WFL Yes PT-OP-L Special Tests Start: 08/26/22 08:09 Freq: Status: Active Protocol: Document 08/26/22 09:08 [facility] (Rec: 08/26/22 16:34 [facility] [id number]) Special Tests Knee Special Tests Apley's Compression Test Results -ve Kristin's Test Results -ve Valgus- 25 Degrees Test Results -ve Varus- 0 Degrees Test Results -ve Varus- 25 Degrees Test Results -ve PT-OP-M Strength Start: 08/26/22 08:09 Freq: Status: Active Protocol: Document 08/26/22 09:08 SAK (Rec: 08/26/22 16:34 [facility] [id number]) Hip Strength Hip Manual Muscle Testing Right Flexion (L2) 4+ Good+ Extension (S1) 4- Good- Abduction 4 Good Adduction 4+ Good+ External Rotation 4- Good- Internal Rotation 4+ Good+ Left Flexion (L2) 4+ Good+ Extension (S1) 4- Good- Abduction 4 Good Adduction 4 Good External Rotation 4- Good- Internal Rotation 4+ Good+ Knee Strength Knee Manual Muscle Testing Right Flexion (S2) 4 Good Extension (L3) 4 Good Left Flexion (S2) 5 Normal Extension (L3) 5 Normal PT-OP-Q Treatments Start: 08/26/22 08:09 Freq: Status: Active Protocol: Document 12/30/22 10:30 [facility] (Rec: 12/30/22 11:19 [facility] [id number]) Cardio Equipment Recumbent Stepper (Sci-Fit) Duration (Minutes) 5 Resistance 1g Seat Position 10 Other cues for LE alignment Therapeutic Exercises Supine Exercises HC stretch Side bilateral Reps/Minutes 2x30 gluteal set Reps/Minutes 10x5 Comments adding small segmental bridges Manual Therapy Treatment Soft Tissue Mobilization right piriformis Mobilization Type Sustained Pressure Intensity/Depth Moderate Comments S/L Taping arch Body Location marcella arches Treatment Focus support Type of Tape Kinesio Tape Skin Inspection intact Comments 2 I strips right 1 left, 75% stretch right knee Body Location right knee Treatment Focus pain management Type of Tape Kinesio Tape Skin Inspection intact Comments 2 Y strips; anchor 1 tibial tuberosity, 50% stretch med and lat edges patella proximally, anchor superior to patella, 50% stretch med and lateral edges patella distally Self-Care/Home Management Treatment Education Patient Education Pain Management,Posture Other Education bed positioning for joint support and pain relief PT-OP-R Modalities Start: 08/26/22 08:09 Freq: Status: Active Protocol: Document 12/30/22 10:30 SAK (Rec: 12/30/22 16:25 [facility] [id number]) Hot Pack/Cold Pack Treatment Cold Pack Location marcella posterior hip, right knee Treatment Duration (minutes) 10 Comments 90/90 position PT-OP-T Assessment and Plan Start: 08/26/22 08:09 Freq: Status: Active Protocol: Document 12/30/22 10:30 SAK (Rec: 12/30/22 11:19 [facility] [id number]) Physical Therapy Assessment Goals Four Impairment decreased arch right Impairment malalignment right LE contributing to right knee pain Pr Intern Goal (LTG) Patient to obtain orthotics for arch support and improved alignment right LE 10/07/22: has not done 11/27/22: has not obtained arch support 12/30/22: still hasn't obtained arch support, taped today, not met LTG Duration 02/07/23 Three Impairment weakness right LE Short Term Goal (STG) Patient to be instructed in HEP for purposes of knee flexibility and strengthening 10/07/22: modfied HEP today due to decrease tolerance for any hip ex, issued updated HO empasis on knee strengthening and flexibility, poor tolerance hip STG Duration goal met Pr Intern Goal (LTG) Patient to be independent and compliant with HEP and demonstrate 09/20 muscle strength, and flexibility of hamstrings to at least 70 deg SLR. 10/07/22: goal progress 11/27/22: goal progress though with review today patient has not been doing all exercises due to not using handouts anymore; PT stressed rationale for each ex 12/30/22: poorly tolerating HEP LTG Duration 02/07/23 Two Impairment activity tolerance Impairment LEFS score 69% Pr Intern Goal (LTG) Improve LEFS score to at least 80% as measure of improved functional activity tolerance 10/07/22: score 70%, reports improved flexibility in knees, but pain in buttock and SI has impacted activity tolerance and her ability to focus on knee ex 11/27/22: 72%, improved. 12/30/22: 58%, decreased LTG Duration 12/07/22 One Impairment right knee pain Impairment 4/10 pain scale, worst at night and with descending stairs Alf Goal (LTG) Decrease pain to no greater than 2/10 with all usual activities and be able to sleep without being woken due to right knee pain and be able to descend stairs without pain 10/07/22: pain 0-4/10, using small pillow between knees, agreeable to try larger pillow as shown in PT 11/27/22: pain remains 0-4/10, reports improved sleep. 12/30/22: reports knee pain 2/ 10 LTG Duration 01/28/23 Assessment Summary Assessment Patient has made some progress with decreasing right knee pain, has not followed up with obtaining arch supports per PT recommendation. Independent with HEP but reports onset of bilateral LB/ buttock and posterior thigh pain; has Physical Therapy Plan Discharge Physical Therapy Discharge Reasons Change in Medical Status Discharge Comments going to see PT for LB and hip pain.
== END 2022-12-31 14:24 | disposition home or self-care (01) ==
LOC: PHYS 10:30
PROVIDERS: Family Provider Family Medicine; PCP Family Medicine; Referring Provider Physician Assistant; Visit Provider Physician Assistant
DX: M17.11 Unilateral primary osteoarthritis, right knee (principal)
CPT/HCPCS: 97010; 97110; 97140; 97161; 97535

== ENCOUNTER → 2023-01-22 12:07 | Outpatient (CLI) | payer MEDICARE, SELFPAY ==
[2023-01-22 15:38] LABS: Alanine Aminotransferase 35 IU/L (<35); Albumin 4.2 g/dL (3.5-5.0); Albumin Globulin Ratio 1.5 (1.0-2.8); Alkaline Phosphatase 58 U/L (38-126); Aspartate Aminotransferase 29 IU/L (14-36); BUN Creatinine Ratio 26.2 (6-22); Bilirubin Total 0.4 mg/dL (0.2-1.3); Blood Urea Nitrogen 22 mg/dL (7-17); Calcium 8.8 mg/dL (8.4-10.2); Carbon Dioxide 25 mmol/L (22-32); Chloride 105 mmol/L (98-107); Estimated Glomerular Filt Rate > 60 mL/min (>60); Globulin 2.8 g/dL (1.7-4.1); Glucose 96 mg/dL (80-110); HEMOLYSIS < 15 (0-50); Potassium 4.9 mmol/L (3.4-5.1); Sodium 137 mmol/L (137-145)
== END ==
PROVIDERS: Family Provider Internal Medicine; PCP Family Medicine; Referring Provider Physician Assistant; Visit Provider Physician Assistant
DX: Z79.1 Long term (current) use of non-steroidal anti-inflammatories (NSAID) (principal)
CPT/HCPCS: 36415; 80053

== ENCOUNTER → 2023-02-18 13:47 | Outpatient (CLI) | payer MEDICARE, SELFPAY ==
--- NOTE | 2023-02-18 13:48 | DI.MRI.S_ITS ---
PROCEDURE: MR LUMBAR SPINE WO CON INDICATIONS: Radiculopathy, lumbar region, no improvement with PT TECHNIQUE: Noncontrast sagittal T1 spin echo and T2 fast echo, sagittal STIR, and T2 fast spin echo through the lumbar spine. In cases with scoliosis, additional coronal T2 fast spin echo may be performed. COMPARISON: None. FINDINGS: Image quality: Excellent. Alignment and Curvature: There is grade 1 L4 on L5 and L5 on S1 anterolisthesis. There is exaggerated lordosis of the lumbar spine. Bone Marrow: Marrow is of normal overall signal. No acute vertebral body compression fractures. Spinal Cord: Conus medullaris terminates at the L1 level. Visualized cord demonstrates normal signal and size. Paraspinous Soft Tissues: No paravertebral masses. T2 hyperintense foci are present within the bilateral renal cortices suggesting the presence of simple renal cysts. These are incompletely characterized on this limited view. T12-L1: Moderate disc desiccation and height loss. Broad-based disc bulge. Mild facet and ligamentum flavum hypertrophy. No canal stenosis. Mild bilateral foraminal stenosis. L1-L2: Mild disc desiccation and height loss. Broad-based disc bulge. Moderate facet ligamentum flavum hypertrophy. No canal stenosis. Mild right and moderate left foraminal narrowing. L2-L3: Mild disc desiccation and height loss. Mild facet ligamentum flavum hypertrophy. No canal stenosis. Mild bilateral foraminal stenosis. L3-L4: Mild disc desiccation and height loss. Broad-based disc bulge. Mild facet and ligamentum flavum hypertrophy. No canal stenosis. Mild bilateral foraminal stenosis. L4-L5: Anterolisthesis. Mild disc desiccation and height loss. Severe facet and ligamentum flavum hypertrophy. Broad-based disc bulge. Mild canal stenosis. Mild bilateral foraminal stenosis. There is a posterior focal high-intensity zone. L5-S1: Anterolisthesis. Severe facet and ligamentum flavum hypertrophy. Moderate disc desiccation and height loss. Broad-based disc bulge. No canal stenosis. Mild right and moderate left foraminal narrowing. There is a small posterior focal high-intensity zone. IMPRESSION: 1. Mild to moderate disc desiccation and height loss throughout the lumbar spine. 2. Grade 1 anterolisthesis at L4-5 and L5-S1. 3. Multilevel mild foraminal stenosis. Moderate left foraminal narrowing is present at L1-2 and L5-S1. 4. 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 Dictated by: Divya Brown M.D. on 02/18/2023 at 15:53 Approved by: Divya Brown M.D. on 02/18/2023 at 15:59
== END ==
LOC: MRI 13:48
PROVIDERS: Family Provider Internal Medicine; PCP Family Medicine; Referring Provider Physician Assistant; Visit Provider Physician Assistant
DX: M43.16 Spondylolisthesis, lumbar region (principal); M43.17 Spondylolisthesis, lumbosacral region; M47.26 Other spondylosis with radiculopathy, lumbar region; M47.27 Other spondylosis with radiculopathy, lumbosacral region; M48.061 Spinal stenosis, lumbar region without neurogenic claudication; M48.07 Spinal stenosis, lumbosacral region; M54.50 Low back pain, unspecified
CPT/HCPCS: 72148

== ENCOUNTER → 2023-03-06 07:19 | Outpatient (CLI) | payer MEDICARE, SELFPAY ==
[2023-03-06 08:22] LABS: Add Manual Diff / Slide Review NO; Basophils Absolute Auto 100 /uL (0-100); Eosinophils Absolute Auto 200 /uL (0-450); Eosinophils Percent Auto 2.5 % (2-4); Hematocrit 39.4 % (36-46); Hemoglobin 13.5 g/dL (12.0-16.0); Lymphocytes Absolute Auto 3300 /uL (1100-4500); Mean Corpuscular HGB Conc 34.3 % (30-36); Mean Corpuscular Hemoglobin 30.4 PG (26-34); Mean Corpuscular Volume 88.6 fL (80-100); Monocytes Absolute Auto 600 /uL (0-900); Monocytes Percent Auto 8.4 % (3-14); Neutrophils Absolute Auto 3000 /uL (1500-7000); Neutrophils Percent Auto 42.1 % (50-75); Platelet Count 222 X10^3/uL (150-400); Red Blood Cell Count 4.44 X10^6/uL (4.0-5.2); Red Cell Distribution Width 14.3 % (11.6-14.8); White Blood Cell Count 7.2 X10^3/uL (4.5-11.0)
[2023-03-06 08:30] LABS: Hemoglobin A1C% w Est Avg Glu 5.9 % (4.0-6.0)
[2023-03-06 09:09] LABS: Cholesterol 146 mg/dL (140-199); HDL Cholesterol 76 mg/dL (40-60); LDL Cholesterol Calculated 53 mg/dL (<100); Triglycerides 85 mg/dL (35-150)
[2023-03-06 09:36] LABS: Thyroid Stimulating Hormone 0.139 uIU/mL (0.47-4.68)
[2023-03-06 09:59] LABS: Creatinine Urine Random 127.5 mg/dL
[2023-03-06 10:04] LABS: Microalbumi Creatinin Ratio Ur 7.8 ug/mg CR (<30)
== END ==
PROVIDERS: Family Provider Internal Medicine; PCP Family Medicine; Referring Provider Family Medicine; Visit Provider Family Medicine
DX: E03.9 Hypothyroidism, unspecified (principal); R73.03 Prediabetes; R53.83 Other fatigue; I10 Essential (primary) hypertension
CPT/HCPCS: 36415; 80061; 82043; 82570; 83036; 84443; 85025

== ENCOUNTER 2023-03-24 15:00 | Outpatient (RCR) | payer MEDICARE, SELFPAY ==
--- NOTE | 2023-01-01 11:27 | PT.OPPOC ---
Physical, Occupational & Speech Therapy At [facility] Current Diagnoses Polyneuropathy, unspecified (01/01/23) Low back pain, unspecified (01/01/23) Difficulty in walking, not elsewhere classified (01/01/23) Abnormal posture (01/01/23) Weakness (01/01/23) Visit Care Team Role Provider Type Mere Louis MD Primary Care Provider Physician Specialty: Family Practice Address: [address] [place] [address], [facility] Email: [email or web address] Kye Ragsdale MD Family Provider Physician Specialty: Internal Medicine Address: [address] [place] [address], [facility] Email: [email or web address] Alanna Greenfield PA-C Attending Provider Advanced Telescope Operator Referring Provider Specialty: Medical Address: [address] [place] [address], [facility] Email: [email or web address] Plan Of Care PT-OP-T Assessment and Plan Start: 01/01/23 14:05 Freq: Status: Active Protocol: Document 01/01/23 14:00 [facility] (Rec: 01/06/23 11:25 SAK [id number]) Physical Therapy Assessment Rehab Potential Rehabilitation Potential Good Evaluation Complexity Number of Personal Factors/Comorbidities 1-2 Number of Body Systems Impaired 3 Clinical Presentation at Evaluation Evolving Impairments Impairments Activity Tolerance,Pain, Posture,Soft Tissue Mobility, Strength Goals Three Impairment weakness Impairment weakness throughout hips and core with poor core stabilization Short Term Goal (STG) Patient to be instructed in HEP for purposes of core and hip strengthening and core stab STG Duration 02/01/23 Snf Goal (LTG) Patient to be independent and compliant with HEP and demonstrate improvement in strength to at least 4+/5 for improved joint support and tolerance for usual activities LTG Duration 04/03/23 Four Impairment postural dysfunction and poor body mechanics Impairment Excess lumbar lordosis, lateral lean to right, increased thoracic kyphosis Short Term Goal (STG) pt to be instructed in neutral postural alignment and correct body mechanics for her usual ADL's STG Duration 02/01/23 Snf Goal (LTG) Patient to demonstrate improved postural awareness and ability to self correct her posture and demonstrate good body mechanics for her usual tasks LTG Duration 04/03/23 Two Impairment Dec activity tolerance Impairment Oswestry disability index score 32% LEFS 64% Snf Goal (LTG) Decrease TAVO score to no greater than 15%, and improve LEFS to at least 75% as measure of improved activity tolerance and quality of life LTG Duration 04/03/23 One Impairment marcella LB, buttock and posterior thigh pain Impairment 6/10 on pain scale Special Delivery Carrier Goal (LTG) Decrease pain by at least 75% to improve patient ability to return to PLF LTG Duration 04/03/23 Assessment Summary Assessment Patient presents to PT with function-limiting pain marcella low back, buttocks, and posterior thighs which came on as she was doing PT for her knee pain . Denies numbness or tingling , or legs giving way. She has weakness throughout her core and hips, postural dysfunction, and poor body mechanics. Feel she would benefit from PT to decrease her pain, improve her strength , core stabilization, and body mechanics for back protection . POC was discussed and she was in agreement. Physical Therapy Plan Frequency and Duration Frequency of Treatment 2x/Week Duration of treatment (weeks) 12 Plan of Care Start Date 01/01/23 Plan of Care End Date 04/03/23 Therapeutic Interventions Therapeutic Interventions Gait Training,Home Exercise Program,Manual Therapy,Patient /Caregiver Education,Self-Care /Home Management,Soft Tissue Mobilization,Taping, Therapeutic Activities, Therapeutic Exercises Modalities Cold Pack/Ice Massage,Electric Stimulation,Hot Packs, Infrared Therapy,Iontophoresis ,Traction- Mechanical, Ultrasound Next Visit Focus/Plan Next Note Type Treatment Note Next Visit Plan Review HEP, continue ther ex for postural correction, muscle activation sequencing for LEs and core. Manual therapy and modalities PRN pain. Plan of Care Dates Plan of Care Start Date 01/01/23 Plan of Care End Date 04/03/23 Electronically Signed by: Randee Mendoza, PT 01/06/23 [id number] If you are in agreement with this Plan of Care, please return a signed and dated copy. I have reviewed this Plan of Care and certify that the skilled therapy services above are required to meet the patient?s needs. Physician Signature Date Printed Name and Credentials Clinical Instructor Signature Printed Name and Credentials
--- NOTE | 2023-01-01 11:27 | PT.OIE ---
Current Diagnoses Polyneuropathy, unspecified (01/01/23) Low back pain, unspecified (01/01/23) Difficulty in walking, not elsewhere classified (01/01/23) Abnormal posture (01/01/23) Weakness (01/01/23) Past Medical History (Last Reviewed 09/25/21 @ 15:37 by Rafal Keith MD) Anxiety (~1994) Chicken pox (~1951) Depression Hx of breast cancer Insomnia (~09/22/21) Osteoarthritis (~2004) Osteopenia (~2007) Plantar warts (~1954) Stenosis of carotid artery Past Surgical History (Last Reviewed 09/25/21 @ 15:37 by Rafal Keith MD) Anesthesia Status post cholecystectomy (~2003) Status post hysterectomy (~1991) Visit Care Team Role Provider Type Mere Louis MD Primary Care Provider Physician Specialty: Family Practice Address: [address] [place] [address] Email: [email or web address] Kye Ragsdale MD Family Provider Physician Specialty: Internal Medicine Address: [address] [place] [address] Email: [email or web address] Alanna Greenfield PA-C Attending Provider Advanced Staff Physical Therapy Assistant Referring Provider Specialty: Medical Address: [address] [place] [address] Email: [email or web address] Physical Therapy Initial Evaluation PT-OP-A Visit Information Start: 01/01/23 14:05 Freq: Status: Active Protocol: Document 01/01/23 14:00 [facility] (Rec: 01/06/23 11:25 SAK [id number]) Out-Patient Physical Therapy Visit Information Visit Information Visit Type Initial Evaluation Visit Start Time 14:00 Visit Stop Time 14:55 Total Visit Minutes 55 Visit Number 1 Evaluation Information Evaluation Date 01/01/23 Precautions Precautions history spinal surgery PT-OP-B Current Condition Start: 01/01/23 14:05 Freq: Status: Active Protocol: Document 01/01/23 14:00 [facility]AK (Rec: 01/06/23 11:25 [facility] [id number]) Current Condition History of Current Condition Onset Date 8 weeks Current Complaints marcella LB and buttock pain History of Current Condition was doing PT for left knee pain and had onset of marcella LB and buttock pain which is now more painful than knee, and has not improved no matter what she has tried; exercise, no exercise, medications. 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 Grade 1 anterolisthesis of L4 on L5 and L5 on S1 secondary to facet arthrosis. Treatment Goals Patient/Caregiver Goals Minimize pain, resume prior level of function Prior Functional Status Baseline Function- ADL's Modified Independent Baseline Function- Mobility Modified Independent Baseline Function- Gait indep, no device Baseline Function- Work/School retired Baseline Function- Recreation/Hobbies sewing, gardening Current Functional Impairments (Reported) Functional Limitations- ADL's painful Functional Limitations- Mobility/Gait painful and limited Functional Limitations- Recreation/ painful Hobbies PT-OP-C Subjective Start: 01/01/23 14:05 Freq: Status: Active Protocol: Document 01/01/23 14:00 [facility] (Rec: 01/06/23 11:25 [facility] [id number]) OP-PT Pain Assessment Pain Assessment Grid Paper Pain Assessment Grid Completed Yes Location marcella l/s, buttocks, pos thighs Intensity 8 Scale Used Numeric (0 - 10) Description Aching,Radiating,Spasm, Stabbing,Tender,Tightness Frequency Frequent PT-OP-G Mobility & Gait Start: 01/01/23 14:05 Freq: Status: Active Protocol: Document 01/01/23 14:00 [facility] (Rec: 01/06/23 11:25 [facility] [id number]) OP Gait Assessment Gait Gait Assistance Required: Independent Assistive Devices Assistive Device None Gait Deviations General Gait Pattern Antalgic,Decreased Stride Length,Decreased Feet Clearance,Lateral Trunk Lean Factors Limiting Gait Function Factors Limiting Gait Function Decreased Activity Tolerance, Difficulty Following Directions,Pain PT-OP-H Neuro Start: 01/01/23 14:05 Freq: Status: Active Protocol: Document 01/01/23 14:00 [facility] (Rec: 01/06/23 11:25 [facility] [id number]) Sensation Evaluation Gross Sensation Gross Sensation WNL PT-OP-J Posture/Palpation/Skin Start: 01/01/23 14:05 Freq: Status: Active Protocol: Document 01/01/23 14:00 [facility] (Rec: 01/06/23 11:25 [facility] [id number]) Posture Evaluation Position Standing Head/C-Spine Posture Forward Head T-Spine Posture Increased Kyphosis L-Spine Posture Increased Lordosis Shoulder Subluxation Position (L) Anterior,(R) Anterior Scapula Posture (L) Protracted,(R) Protracted Arm Posture (L) Internally Rotated,(R) Internally Rotated Pelvis Posture Anteriorly Tilted Hip Posture (L) Flexed,(R) Flexed Foot Arch (L) Low Arch,(R) Low Arch Palpation Assessment Location Two Palpation Location IT bands Palpation Findings Soft Tissue Tightness,Muscle Guarding,Tenderness One Palpation Location piriformis marcella Palpation Findings Soft Tissue Tightness, Tenderness PT-OP-K Range of Motion Start: 01/01/23 14:05 Freq: Status: Active Protocol: Document 01/01/23 14:00 [facility] (Rec: 01/06/23 11:25 [facility] [id number]) Lumbar Spine Range of Motion Lumbar Spine Active Flexion 35 Extension 10 Rotation Left 20 Rotation Right 25 Lateral Flexion Left 20 Lateral Flexion Right 25 ROM Limitations Soft Tissue Tightness,Pain Hip Goniometric Range of Motion Hip Left Flexion w/Knee Flexed 90 Straight Leg Raise 55 Extension 0 Abduction 15 Internal Rotation 154 Right Flexion w/Knee Flexed 95 Straight Leg Raise 55 Extension 0 Abduction 15 Internal Rotation 15 External Rotation 45 PT-OP-L Special Tests Start: 01/01/23 14:05 Freq: Status: Active Protocol: Document 01/01/23 14:00 [facility] (Rec: 01/06/23 11:25 [facility] [id number]) Special Tests Lumbar Spine Special Tests Straight Leg Raise Test Results + Comments muscle tightness Manual Traction Test Results + dec symptoms Passive Neck Flexion Test Results - Moise Test Results - Compression Test Results + PT-OP-M Strength Start: 01/01/23 14:05 Freq: Status: Active Protocol: Document 01/01/23 14:00 [facility] (Rec: 01/06/23 11:25 [facility] [id number]) Trunk Strength Trunk Manual Muscle Testing Flexion 3+ Fair+ Extension 3+ Fair+ Core Stabilization poor Hip Strength Hip Manual Muscle Testing marcella Flexion (L2) 4 Good Extension (S1) 4- Good- Abduction 3+ Fair+ Adduction 4- Good- External Rotation 3+ Fair+ Internal Rotation 4- Good- Knee Strength Knee Manual Muscle Testing Left Flexion (S2) 4 Good Extension (L3) 4 Good Right Flexion (S2) 5 Normal Extension (L3) 5 Normal PT-OP-Q Treatments Start: 01/01/23 14:05 Freq: Status: Active Protocol: Document 01/01/23 14:00 [facility] (Rec: 01/06/23 11:25 [facility] [id number]) Self-Care/Home Management Treatment Education Patient Education Body Mechanics,Home Exercise Program,Pain Management, Posture Activities Self-Care/Home Management Activities self-evaluation of habitual postures and positions PT-OP-R Modalities Start: 01/01/23 14:05 Freq: Status: Active Protocol: Document 01/01/23 14:00 [facility] (Rec: 01/06/23 11:25 [facility] [id number]) Hot Pack/Cold Pack Treatment Cold Pack Location marcella posterior hip, left knee Comments 90/90 position PT-OP-T Assessment and Plan Start: 01/01/23 14:05 Freq: Status: Active Protocol: Document 01/01/23 14:00 [facility] (Rec: 01/06/23 11:25 [facility] [id number]) Physical Therapy Assessment Rehab Potential Rehabilitation Potential Good Evaluation Complexity Number of Personal Factors/Comorbidities 1-2 Number of Body Systems Impaired 3 Clinical Presentation at Evaluation Evolving Impairments Impairments Activity Tolerance,Pain, Posture,Soft Tissue Mobility, Strength Goals Three Impairment weakness Impairment weakness throughout hips and core with poor core stabilization Short Term Goal (STG) Patient to be instructed in HEP for purposes of core and hip strengthening and core stab STG Duration 02/01/23 [facility] Goal (LTG) Patient to be independent and compliant with HEP and demonstrate improvement in strength to at least 4+/5 for improved joint support and tolerance for usual activities LTG Duration 04/03/23 Four Impairment postural dysfunction and poor body mechanics Impairment Excess lumbar lordosis, lateral lean to right, increased thoracic kyphosis Short Term Goal (STG) pt to be instructed in neutral postural alignment and correct body mechanics for her usual ADL's STG Duration 02/01/23 [facility] Goal (LTG) Patient to demonstrate improved postural awareness and ability to self correct her posture and demonstrate good body mechanics for her usual tasks LTG Duration 04/03/23 Two Impairment Dec activity tolerance Impairment Oswestry disability index score 32% LEFS 64% Evp And Chief Operating Officer Goal (LTG) Decrease TAVO score to no greater than 15%, and improve LEFS to at least 75% as measure of improved activity tolerance and quality of life LTG Duration 04/03/23 One Impairment marcella LB, buttock and posterior thigh pain Impairment 6/10 on pain scale Evp And Chief Operating Officer Goal (LTG) Decrease pain by at least 75% to improve patient ability to return to PLF LTG Duration 04/03/23 Assessment Summary Assessment Patient presents to PT with function-limiting pain marcella low back, buttocks, and posterior thighs which came on as she was doing PT for her knee pain . Denies numbness or tingling , or legs giving way. She has weakness throughout her core and hips, postural dysfunction, and poor body mechanics. Feel she would benefit from PT to decrease her pain, improve her strength , core stabilization, and body mechanics for back protection . POC was discussed and she was in agreement. Physical Therapy Plan Frequency and Duration Frequency of Treatment 2x/Week Duration of treatment (weeks) 12 Plan of Care Start Date 01/01/23 Plan of Care End Date 04/03/23 Therapeutic Interventions Therapeutic Interventions Gait Training,Home Exercise Program,Manual Therapy,Patient /Caregiver Education,Self-Care /Home Management,Soft Tissue Mobilization,Taping, Therapeutic Activities, Therapeutic Exercises Modalities Cold Pack/Ice Massage,Electric Stimulation,Hot Packs, Infrared Therapy,Iontophoresis ,Traction- Mechanical, Ultrasound Next Visit Focus/Plan Next Note Type Treatment Note Next Visit Plan Review HEP, continue ther ex for postural correction, muscle activation sequencing for LEs and core. Manual therapy and modalities PRN pain.
--- NOTE | 2023-01-13 10:01 | PT.OTN ---
Current Diagnoses Polyneuropathy, unspecified (01/13/23) Low back pain, unspecified (01/13/23) Difficulty in walking, not elsewhere classified (01/13/23) Abnormal posture (01/13/23) Weakness (01/13/23) Physical Therapy Treatment Note PT-OP-A Visit Information Start: 01/01/23 14:05 Freq: Status: Active Protocol: Document 01/13/23 08:46 [facility]AK (Rec: 01/13/23 10:01 [facility] [id number]) Out-Patient Physical Therapy Visit Information Visit Information Visit Type Treatment Note Visit Start Time 08:46 Visit Stop Time 09:36 Total Visit Minutes 50 Visit Number 2 Evaluation Information Evaluation Date 01/01/23 Precautions Precautions history spinal surgery PT-OP-B Current Condition Start: 01/01/23 14:05 Freq: Status: Active Protocol: Document 01/13/23 08:46 [facility]AK (Rec: 01/13/23 10:01 [facility] [id number]) Current Condition History of Current Condition Onset Date 8 weeks Current Complaints marcella LB and buttock pain History of Current Condition was doing PT for left knee pain and had onset of marcella LB and buttock pain which is now more painful than knee, and has not improved no matter what she has tried; exercise, no exercise, medications. 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 Grade 1 anterolisthesis of L4 on L5 and L5 on S1 secondary to facet arthrosis. PT-OP-C Subjective Start: 01/01/23 14:05 Freq: Status: Active Protocol: Document 01/13/23 08:46 [facility]AK (Rec: 01/13/23 10:01 [facility] [id number]) OP-PT Subjective Patient Comments Patient Comments Judging by the amount of medication taken, a little bit better. Doing only piriformis stretch and icing. PT-OP-G Mobility & Gait Start: 01/01/23 14:05 Freq: Status: Active Protocol: Document 01/01/23 14:00 [facility]AK (Rec: 01/06/23 11:25 [facility] [id number]) OP Gait Assessment Gait Gait Assistance Required: Independent Assistive Devices Assistive Device None Gait Deviations General Gait Pattern Antalgic,Decreased Stride Length,Decreased Feet Clearance,Lateral Trunk Lean Factors Limiting Gait Function Factors Limiting Gait Function Decreased Activity Tolerance, Difficulty Following Directions,Pain PT-OP-H Neuro Start: 01/01/23 14:05 Freq: Status: Active Protocol: Document 01/01/23 14:00 [facility] (Rec: 01/06/23 11:25 [facility] [id number]) Sensation Evaluation Gross Sensation Gross Sensation WNL PT-OP-J Posture/Palpation/Skin Start: 01/01/23 14:05 Freq: Status: Active Protocol: Document 01/01/23 14:00 [facility] (Rec: 01/06/23 11:25 [facility] [id number]) Posture Evaluation Position Standing Head/C-Spine Posture Forward Head T-Spine Posture Increased Kyphosis L-Spine Posture Increased Lordosis Shoulder Subluxation Position (L) Anterior,(R) Anterior Scapula Posture (L) Protracted,(R) Protracted Arm Posture (L) Internally Rotated,(R) Internally Rotated Pelvis Posture Anteriorly Tilted Hip Posture (L) Flexed,(R) Flexed Foot Arch (L) Low Arch,(R) Low Arch Palpation Assessment Location Two Palpation Location IT bands Palpation Findings Soft Tissue Tightness,Muscle Guarding,Tenderness One Palpation Location piriformis marcella Palpation Findings Soft Tissue Tightness, Tenderness PT-OP-K Range of Motion Start: 01/01/23 14:05 Freq: Status: Active Protocol: Document 01/01/23 14:00 [facility] (Rec: 01/06/23 11:25 [facility] [id number]) Lumbar Spine Range of Motion Lumbar Spine Active Flexion 35 Extension 10 Rotation Left 20 Rotation Right 25 Lateral Flexion Left 20 Lateral Flexion Right 25 ROM Limitations Soft Tissue Tightness,Pain Hip Goniometric Range of Motion Hip Left Flexion w/Knee Flexed 90 Straight Leg Raise 55 Extension 0 Abduction 15 Internal Rotation 154 Right Flexion w/Knee Flexed 95 Straight Leg Raise 55 Extension 0 Abduction 15 Internal Rotation 15 External Rotation 45 PT-OP-L Special Tests Start: 01/01/23 14:05 Freq: Status: Active Protocol: Document 01/01/23 14:00 [facility] (Rec: 01/06/23 11:25 [facility] [id number]) Special Tests Lumbar Spine Special Tests Straight Leg Raise Test Results + Comments muscle tightness Manual Traction Test Results + dec symptoms Passive Neck Flexion Test Results - Moise Test Results - Compression Test Results + PT-OP-M Strength Start: 01/01/23 14:05 Freq: Status: Active Protocol: Document 01/01/23 14:00 [facility] (Rec: 01/06/23 11:25 [facility] [id number]) Trunk Strength Trunk Manual Muscle Testing Flexion 3+ Fair+ Extension 3+ Fair+ Core Stabilization poor Hip Strength Hip Manual Muscle Testing marcella Flexion (L2) 4 Good Extension (S1) 4- Good- Abduction 3+ Fair+ Adduction 4- Good- External Rotation 3+ Fair+ Internal Rotation 4- Good- Knee Strength Knee Manual Muscle Testing Left Flexion (S2) 4 Good Extension (L3) 4 Good Right Flexion (S2) 5 Normal Extension (L3) 5 Normal PT-OP-Q Treatments Start: 01/01/23 14:05 Freq: Status: Active Protocol: Document 01/13/23 08:46 [facility] (Rec: 01/13/23 10:01 [facility] [id number]) Gym Equipment Therapeutic Ball LAQ Body Position Sitting Reps/Duration 10x pelvic tilt Exercise Details A/P, lateral Ball Size/Color green 55 cm Therapeutic Exercises Sitting Exercises piriformis stretch Reps/Minutes 2x30 Standing Exercises postural correction Standing Exercise Name including EO, EC, isometric resistance Reps/Minutes 5 min Comments mirror for visual feedback neutral posture walk with arm reach Reps/Minutes 2 min Comments cues for lengthening right side QL doorway stretch Side right Reps/Minutes 2x30 Comments mod cues for set-up, location of stretch hip ext Standing Exercise Name prone upper body over table Reps/Minutes 10x Comments cues for neutral spine Self-Care/Home Management Treatment Education Patient Education Body Mechanics,Home Exercise Program,Pain Management, Posture PT-OP-R Modalities Start: 01/01/23 14:05 Freq: Status: Active Protocol: Document 01/13/23 08:46 [facility] (Rec: 01/13/23 10:01 [facility] [id number]) Hot Pack/Cold Pack Treatment Hot Pack Location R posterior hip, piriformis Patient Position Supine Treatment Duration (minutes) 15 Patient Tolerance Good Comments 90/90 position PT-OP-T Assessment and Plan Start: 01/01/23 14:05 Freq: Status: Active Protocol: Document 01/13/23 08:46 [facility] (Rec: 01/13/23 10:01 [facility] [id number]) Physical Therapy Assessment Goals Three Impairment weakness Impairment weakness throughout hips and core with poor core stabilization Short Term Goal (STG) Patient to be instructed in HEP for purposes of core and hip strengthening and core stab STG Duration 02/01/23 [facility] Goal (LTG) Patient to be independent and compliant with HEP and demonstrate improvement in strength to at least 4+/5 for improved joint support and tolerance for usual activities LTG Duration 04/03/23 Four Impairment postural dysfunction and poor body mechanics Impairment Excess lumbar lordosis, lateral lean to right, increased thoracic kyphosis Short Term Goal (STG) pt to be instructed in neutral postural alignment and correct body mechanics for her usual ADL's STG Duration 02/01/23 [facility] Goal (LTG) Patient to demonstrate improved postural awareness and ability to self correct her posture and demonstrate good body mechanics for her usual tasks LTG Duration 04/03/23 Two Impairment Dec activity tolerance Impairment Oswestry disability index score 32% LEFS 64% Environmental Health And Safety Manager Goal (LTG) Decrease TAVO score to no greater than 15%, and improve LEFS to at least 75% as measure of improved activity tolerance and quality of life LTG Duration 04/03/23 One Impairment marcella LB, buttock and posterior thigh pain Impairment 6/10 on pain scale Environmental Health And Safety Manager Goal (LTG) Decrease pain by at least 75% to improve patient ability to return to PLF LTG Duration 04/03/23 Assessment Summary Assessment Patient reporting mild decrease in pain. Correction of opatient form with piriformis stretch required for improved stretch. Focused on postural correction, core stab, QL stretch and right side lengthening with walking. Trial manual lumbar traction without significant reported effect. updated written HEP. Physical Therapy Plan Frequency and Duration Frequency of Treatment 2x/Week Duration of treatment (weeks) 12 Plan of Care Start Date 01/01/23 Plan of Care End Date 04/03/23 Therapeutic Interventions Therapeutic Interventions Gait Training,Home Exercise Program,Manual Therapy,Patient /Caregiver Education,Self-Care /Home Management,Soft Tissue Mobilization,Taping, Therapeutic Activities, Therapeutic Exercises Modalities Cold Pack/Ice Massage,Electric Stimulation,Hot Packs, Infrared Therapy,Iontophoresis ,Traction- Mechanical, Ultrasound Next Visit Focus/Plan Next Note Type Treatment Note Next Visit Plan Review ther ex provided, progress with emphasis on correction of sidebending dysfunction. Consider trial QL walk ex.
--- NOTE | 2023-01-22 16:07 | PT.OTN ---
Current Diagnoses Polyneuropathy, unspecified (01/22/23) Low back pain, unspecified (01/22/23) Difficulty in walking, not elsewhere classified (01/22/23) Abnormal posture (01/22/23) Weakness (01/22/23) Physical Therapy Treatment Note PT-OP-A Visit Information Start: 01/01/23 14:05 Freq: Status: Active Protocol: Document 01/22/23 14:59 [facility]AK (Rec: 01/22/23 16:07 [facility] [id number]) Out-Patient Physical Therapy Visit Information Visit Information Visit Type Treatment Note Visit Start Time 14:59 Visit Stop Time 15:58 Total Visit Minutes 59 Visit Number 3 Evaluation Information Evaluation Date 01/01/23 Precautions Precautions history spinal surgery PT-OP-B Current Condition Start: 01/01/23 14:05 Freq: Status: Active Protocol: Document 01/22/23 14:59 [facility]AK (Rec: 01/22/23 16:07 [facility] [id number]) Current Condition History of Current Condition Onset Date 8 weeks Current Complaints marcella LB and buttock pain History of Current Condition was doing PT for left knee pain and had onset of marcella LB and buttock pain which is now more painful than knee, and has not improved no matter what she has tried; exercise, no exercise, medications. 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 Grade 1 anterolisthesis of L4 on L5 and L5 on S1 secondary to facet arthrosis. Treatment Goals Patient/Caregiver Goals Minimize pain, resume prior level of function Prior Functional Status Baseline Function- ADL's Modified Independent Baseline Function- Mobility Modified Independent Baseline Function- Gait indep, no device Baseline Function- Work/School retired Baseline Function- Recreation/Hobbies sewing, gardening PT-OP-C Subjective Start: 01/01/23 14:05 Freq: Status: Active Protocol: Document 01/22/23 14:59 SAK (Rec: 01/22/23 16:07 [facility] [id number]) OP-PT Subjective Patient Comments Patient Comments Feels better after being in the pool for aquat aerobics and was in son's pool for a week. Thinks maybe a little better. Feels posture work was helpful last time. Worst position is standing, best position is sitting reclined in her chair PT-OP-G Mobility & Gait Start: 01/01/23 14:05 Freq: Status: Active Protocol: Document 01/01/23 14:00 [facility] (Rec: 01/06/23 11:25 [facility] [id number]) OP Gait Assessment Gait Gait Assistance Required: Independent Assistive Devices Assistive Device None Gait Deviations General Gait Pattern Antalgic,Decreased Stride Length,Decreased Feet Clearance,Lateral Trunk Lean Factors Limiting Gait Function Factors Limiting Gait Function Decreased Activity Tolerance, Difficulty Following Directions,Pain PT-OP-H Neuro Start: 01/01/23 14:05 Freq: Status: Active Protocol: Document 01/01/23 14:00 [facility] (Rec: 01/06/23 11:25 [facility] [id number]) Sensation Evaluation Gross Sensation Gross Sensation WNL PT-OP-J Posture/Palpation/Skin Start: 01/01/23 14:05 Freq: Status: Active Protocol: Document 01/01/23 14:00 [facility] (Rec: 01/06/23 11:25 [facility] [id number]) Posture Evaluation Position Standing Head/C-Spine Posture Forward Head T-Spine Posture Increased Kyphosis L-Spine Posture Increased Lordosis Shoulder Subluxation Position (L) Anterior,(R) Anterior Scapula Posture (L) Protracted,(R) Protracted Arm Posture (L) Internally Rotated,(R) Internally Rotated Pelvis Posture Anteriorly Tilted Hip Posture (L) Flexed,(R) Flexed Foot Arch (L) Low Arch,(R) Low Arch Palpation Assessment Location Two Palpation Location IT bands Palpation Findings Soft Tissue Tightness,Muscle Guarding,Tenderness One Palpation Location piriformis marcella Palpation Findings Soft Tissue Tightness, Tenderness PT-OP-K Range of Motion Start: 01/01/23 14:05 Freq: Status: Active Protocol: Document 01/01/23 14:00 [facility] (Rec: 01/06/23 11:25 [facility] [id number]) Lumbar Spine Range of Motion Lumbar Spine Active Flexion 35 Extension 10 Rotation Left 20 Rotation Right 25 Lateral Flexion Left 20 Lateral Flexion Right 25 ROM Limitations Soft Tissue Tightness,Pain Hip Goniometric Range of Motion Hip Left Flexion w/Knee Flexed 90 Straight Leg Raise 55 Extension 0 Abduction 15 Internal Rotation 154 Right Flexion w/Knee Flexed 95 Straight Leg Raise 55 Extension 0 Abduction 15 Internal Rotation 15 External Rotation 45 PT-OP-L Special Tests Start: 01/01/23 14:05 Freq: Status: Active Protocol: Document 01/01/23 14:00 [facility] (Rec: 01/06/23 11:25 [facility] [id number]) Special Tests Lumbar Spine Special Tests Straight Leg Raise Test Results + Comments muscle tightness Manual Traction Test Results + dec symptoms Passive Neck Flexion Test Results - Moise Test Results - Compression Test Results + PT-OP-M Strength Start: 01/01/23 14:05 Freq: Status: Active Protocol: Document 01/01/23 14:00 [facility] (Rec: 01/06/23 11:25 [facility] [id number]) Trunk Strength Trunk Manual Muscle Testing Flexion 3+ Fair+ Extension 3+ Fair+ Core Stabilization poor Hip Strength Hip Manual Muscle Testing marcella Flexion (L2) 4 Good Extension (S1) 4- Good- Abduction 3+ Fair+ Adduction 4- Good- External Rotation 3+ Fair+ Internal Rotation 4- Good- Knee Strength Knee Manual Muscle Testing Left Flexion (S2) 4 Good Extension (L3) 4 Good Right Flexion (S2) 5 Normal Extension (L3) 5 Normal PT-OP-Q Treatments Start: 01/01/23 14:05 Freq: Status: Active Protocol: Document 01/22/23 14:59 [facility] (Rec: 01/22/23 16:07 [facility] [id number]) Self-Care/Home Management Treatment Education Patient Education Body Mechanics,Home Exercise Program,Pain Management, Posture Other Education importance of dec arch in lumbar spine in standing; do PPT and unlock knees, do wt shifts side to side, front/ back when on road trip can do ex sitting; piriformis stretch, PPT, glut set, add amelia, seated clam. Also instructed at least every hour lean seat back as far as possible for a few min to get spine in different position and take ice pack. PT-OP-R Modalities Start: 01/01/23 14:05 Freq: Status: Active Protocol: Document 01/22/23 14:59 [facility] (Rec: 01/22/23 16:07 [facility] [id number]) Hot Pack/Cold Pack Treatment Cold Pack Location marcella l/s, SI, buttocks Patient Position Hooklying Treatment Duration (minutes) 10 Patient Tolerance Good Comments 90/90 position Spinal Traction Traction Treatment Lumbar Method Static Patient Position Hooklying Force Applied (Pounds) 42 Duration of Treatment (Minutes) 10 Traction Treatment Comment [facility] Ultrasound Therapy Treatment lumbosacral spine Treatment Duration (minutes) 10 Patient Position Sidelying Coupling Medium Ultrasound Gel Applicator Size (cm2) 10 Frequency Setting (mHz) 1 Mode Setting Continuous Duty Cycle 100% Intensity Setting (w/cm2) 1.5 Comments marcella lumbar spin, SI PT-OP-T Assessment and Plan Start: 01/01/23 14:05 Freq: Status: Active Protocol: Document 01/22/23 14:59 [facility] (Rec: 01/22/23 16:07 [facility] [id number]) Physical Therapy Assessment Impairments Impairments Activity Tolerance,Pain, Posture,Soft Tissue Mobility, Strength Goals Three Impairment weakness Impairment weakness throughout hips and core with poor core stabilization Short Term Goal (STG) Patient to be instructed in HEP for purposes of core and hip strengthening and core stab STG Duration 02/01/23 Tableau Administrator Goal (LTG) Patient to be independent and compliant with HEP and demonstrate improvement in strength to at least 4+/5 for improved joint support and tolerance for usual activities LTG Duration 04/03/23 Four Impairment postural dysfunction and poor body mechanics Impairment Excess lumbar lordosis, lateral lean to right, increased thoracic kyphosis Short Term Goal (STG) pt to be instructed in neutral postural alignment and correct body mechanics for her usual ADL's STG Duration 02/01/23 Care Home Goal (LTG) Patient to demonstrate improved postural awareness and ability to self correct her posture and demonstrate good body mechanics for her usual tasks LTG Duration 04/03/23 Two Impairment Dec activity tolerance Impairment Oswestry disability index score 32% LEFS 64% Care Home Goal (LTG) Decrease TAVO score to no greater than 15%, and improve LEFS to at least 75% as measure of improved activity tolerance and quality of life LTG Duration 04/03/23 One Impairment marcella LB, buttock and posterior thigh pain Impairment 6/10 on pain scale Tableau Administrator Goal (LTG) Decrease pain by at least 75% to improve patient ability to return to PLF LTG Duration 04/03/23 Assessment Summary Assessment Patient reports postural work last session helpful, though feeling some symptoms on left, encouraged to do lengthening ex on left as well to decompress, also supine overhead stretch. Instr in what she can do during road trip for spinal health in addition to HEP in hotel room. Trial [facility] today with good tolerance . Physical Therapy Plan Frequency and Duration Frequency of Treatment 2x/Week Duration of treatment (weeks) 12 Plan of Care Start Date 01/01/23 Plan of Care End Date 04/03/23 Therapeutic Interventions Therapeutic Interventions Gait Training,Home Exercise Program,Manual Therapy,Patient /Caregiver Education,Self-Care /Home Management,Soft Tissue Mobilization,Taping, Therapeutic Activities, Therapeutic Exercises Modalities Cold Pack/Ice Massage,Electric Stimulation,Hot Packs, Infrared Therapy,Iontophoresis ,Traction- Mechanical, Ultrasound Next Visit Focus/Plan Next Note Type Treatment Note Next Visit Plan ASsess response to ultrasound and mechanical traction today. Continue to progress with exercises focused on core strengthening, patient with better aziza for flex
--- NOTE | 2023-01-29 13:33 | PT.OTN ---
Current Diagnoses Polyneuropathy, unspecified (01/29/23) Low back pain, unspecified (01/29/23) Difficulty in walking, not elsewhere classified (01/29/23) Abnormal posture (01/29/23) Weakness (01/29/23) Physical Therapy Treatment Note PT-OP-A Visit Information Start: 01/01/23 14:05 Freq: Status: Active Protocol: Document 01/29/23 12:30 [facility]AK (Rec: 01/29/23 13:27 [facility] [id number]) Out-Patient Physical Therapy Visit Information Visit Information Visit Type Treatment Note Visit Start Time 12:30 Visit Stop Time 13:31 Total Visit Minutes 61 Visit Number 4 Evaluation Information Evaluation Date 01/01/23 Precautions Precautions history spinal surgery PT-OP-B Current Condition Start: 01/01/23 14:05 Freq: Status: Active Protocol: Document 01/29/23 12:30 [facility]AK (Rec: 01/29/23 13:27 [facility] [id number]) Current Condition History of Current Condition Onset Date 8 weeks Current Complaints marcella LB and buttock pain History of Current Condition was doing PT for left knee pain and had onset of marcella LB and buttock pain which is now more painful than knee, and has not improved no matter what she has tried; exercise, no exercise, medications. 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 Grade 1 anterolisthesis of L4 on L5 and L5 on S1 secondary to facet arthrosis. Treatment Goals Patient/Caregiver Goals Minimize pain, resume prior level of function PT-OP-C Subjective Start: 01/01/23 14:05 Freq: Status: Active Protocol: Document 01/29/23 12:30 [facility]AK (Rec: 01/29/23 13:27 [facility] [id number]) OP-PT Subjective Patient Comments Patient Comments Not as much of the clenching feeling. THinks PT was helpful , inc pain after last aquatic exercise PT-OP-G Mobility & Gait Start: 01/01/23 14:05 Freq: Status: Active Protocol: Document 01/01/23 14:00 [facility]AK (Rec: 01/06/23 11:25 [facility] [id number]) OP Gait Assessment Gait Gait Assistance Required: Independent Assistive Devices Assistive Device None Gait Deviations General Gait Pattern Antalgic,Decreased Stride Length,Decreased Feet Clearance,Lateral Trunk Lean Factors Limiting Gait Function Factors Limiting Gait Function Decreased Activity Tolerance, Difficulty Following Directions,Pain PT-OP-H Neuro Start: 01/01/23 14:05 Freq: Status: Active Protocol: Document 01/01/23 14:00 [facility] (Rec: 01/06/23 11:25 [facility] [id number]) Sensation Evaluation Gross Sensation Gross Sensation WNL PT-OP-J Posture/Palpation/Skin Start: 01/01/23 14:05 Freq: Status: Active Protocol: Document 01/01/23 14:00 [facility] (Rec: 01/06/23 11:25 [facility] [id number]) Posture Evaluation Position Standing Head/C-Spine Posture Forward Head T-Spine Posture Increased Kyphosis L-Spine Posture Increased Lordosis Shoulder Subluxation Position (L) Anterior,(R) Anterior Scapula Posture (L) Protracted,(R) Protracted Arm Posture (L) Internally Rotated,(R) Internally Rotated Pelvis Posture Anteriorly Tilted Hip Posture (L) Flexed,(R) Flexed Foot Arch (L) Low Arch,(R) Low Arch Palpation Assessment Location Two Palpation Location IT bands Palpation Findings Soft Tissue Tightness,Muscle Guarding,Tenderness One Palpation Location piriformis marcella Palpation Findings Soft Tissue Tightness, Tenderness PT-OP-K Range of Motion Start: 01/01/23 14:05 Freq: Status: Active Protocol: Document 01/01/23 14:00 [facility] (Rec: 01/06/23 11:25 [facility] [id number]) Lumbar Spine Range of Motion Lumbar Spine Active Flexion 35 Extension 10 Rotation Left 20 Rotation Right 25 Lateral Flexion Left 20 Lateral Flexion Right 25 ROM Limitations Soft Tissue Tightness,Pain Hip Goniometric Range of Motion Hip Left Flexion w/Knee Flexed 90 Straight Leg Raise 55 Extension 0 Abduction 15 Internal Rotation 154 Right Flexion w/Knee Flexed 95 Straight Leg Raise 55 Extension 0 Abduction 15 Internal Rotation 15 External Rotation 45 PT-OP-L Special Tests Start: 01/01/23 14:05 Freq: Status: Active Protocol: Document 01/01/23 14:00 [facility] (Rec: 01/06/23 11:25 [facility] [id number]) Special Tests Lumbar Spine Special Tests Straight Leg Raise Test Results + Comments muscle tightness Manual Traction Test Results + dec symptoms Passive Neck Flexion Test Results - Moise Test Results - Compression Test Results + PT-OP-M Strength Start: 01/01/23 14:05 Freq: Status: Active Protocol: Document 01/01/23 14:00 [facility] (Rec: 01/06/23 11:25 [facility] [id number]) Trunk Strength Trunk Manual Muscle Testing Flexion 3+ Fair+ Extension 3+ Fair+ Core Stabilization poor Hip Strength Hip Manual Muscle Testing marcella Flexion (L2) 4 Good Extension (S1) 4- Good- Abduction 3+ Fair+ Adduction 4- Good- External Rotation 3+ Fair+ Internal Rotation 4- Good- Knee Strength Knee Manual Muscle Testing Left Flexion (S2) 4 Good Extension (L3) 4 Good Right Flexion (S2) 5 Normal Extension (L3) 5 Normal PT-OP-Q Treatments Start: 01/01/23 14:05 Freq: Status: Active Protocol: Document 01/29/23 12:30 [facility] (Rec: 01/29/23 13:27 [facility] [id number]) Manual Therapy Treatment Soft Tissue Mobilization piriformis Mobilization Type Myofascial Release,Sustained Pressure Intensity/Depth Moderate Body Position Prone Comments pillow under hips and feet lumbar paraspinals Mobilization Type Myofascial Release,Strumming Intensity/Depth Moderate Body Position Prone Comments pillow under hips and feet Joint Mobilizations sacrum Direction counternutation Grade II Body Position Prone Reps/Duration 3 min Self-Care/Home Management Treatment Education Patient Education Body Mechanics,Home Exercise Program,Pain Management, Posture Other Education reviewed importance of dec arch in lumbar spine in standing; do PPT and unlock knees, do wt shifts side to side, front/back when on road trip can do ex sitting; piriformis stretch, PPT, glut set, add amelia, seated clam. Also instructed at least every hour lean seat back as far as possible for a few min to get spine in different position and take ice pack. PT-OP-R Modalities Start: 01/01/23 14:05 Freq: Status: Active Protocol: Document 01/29/23 12:30 [facility] (Rec: 01/29/23 13:27 [facility] [id number]) Hot Pack/Cold Pack Treatment Hot Pack Location R posterior hip, piriformis Patient Position Prone Treatment Duration (minutes) 5 Patient Tolerance Good Comments prior to traction Cold Pack Location marcella l/s, SI, buttocks Patient Position Hooklying Treatment Duration (minutes) 10 Patient Tolerance Good Comments 90/90 position after traction Spinal Traction Traction Treatment Lumbar Method Static Patient Position Hooklying Force Applied (Pounds) 42 Duration of Treatment (Minutes) 10 Traction Treatment Comment [facility] Ultrasound Therapy Treatment lumbosacral spine Comments not done due to patient wearing heart monitor PT-OP-T Assessment and Plan Start: 01/01/23 14:05 Freq: Status: Active Protocol: Document 01/29/23 12:30 [facility] (Rec: 01/29/23 13:27 [facility] [id number]) Physical Therapy Assessment Goals Three Impairment weakness Impairment weakness throughout hips and core with poor core stabilization Short Term Goal (STG) Patient to be instructed in HEP for purposes of core and hip strengthening and core stab STG Duration 02/01/23 Wire Frame Lampshade Maker Goal (LTG) Patient to be independent and compliant with HEP and demonstrate improvement in strength to at least 4+/5 for improved joint support and tolerance for usual activities LTG Duration 04/03/23 Four Impairment postural dysfunction and poor body mechanics Impairment Excess lumbar lordosis, lateral lean to right, increased thoracic kyphosis Short Term Goal (STG) pt to be instructed in neutral postural alignment and correct body mechanics for her usual ADL's STG Duration 02/01/23 Wire Frame Lampshade Maker Goal (LTG) Patient to demonstrate improved postural awareness and ability to self correct her posture and demonstrate good body mechanics for her usual tasks LTG Duration 04/03/23 Two Impairment Dec activity tolerance Impairment Oswestry disability index score 32% LEFS 64% Skilled Nursing Goal (LTG) Decrease TAVO score to no greater than 15%, and improve LEFS to at least 75% as measure of improved activity tolerance and quality of life LTG Duration 04/03/23 One Impairment marcella LB, buttock and posterior thigh pain Impairment 6/10 on pain scale Wire Frame Lampshade Maker Goal (LTG) Decrease pain by at least 75% to improve patient ability to return to PLF LTG Duration 04/03/23 Physical Therapy Plan Frequency and Duration Frequency of Treatment 2x/Week Duration of treatment (weeks) 12 Plan of Care Start Date 01/01/23 Plan of Care End Date 04/03/23 Therapeutic Interventions Therapeutic Interventions Gait Training,Home Exercise Program,Manual Therapy,Patient /Caregiver Education,Self-Care /Home Management,Soft Tissue Mobilization,Taping, Therapeutic Activities, Therapeutic Exercises Modalities Cold Pack/Ice Massage,Electric Stimulation,Hot Packs, Infrared Therapy,Iontophoresis ,Traction- Mechanical, Ultrasound Next Visit Focus/Plan Next Note Type Treatment Note Next Visit Plan ASsess response to manual treatment plus mechanical traction higher weight. 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
--- NOTE | 2023-01-29 13:34 | PT.OTN ---
Current Diagnoses Polyneuropathy, unspecified (01/29/23) Low back pain, unspecified (01/29/23) Difficulty in walking, not elsewhere classified (01/29/23) Abnormal posture (01/29/23) Weakness (01/29/23) Physical Therapy Treatment Note PT-OP-A Visit Information Start: 01/01/23 14:05 Freq: Status: Active Protocol: Document 01/29/23 12:30 SAK (Rec: 01/29/23 13:27 [facility] [id number]) Out-Patient Physical Therapy Visit Information Visit Information Visit Type Treatment Note Visit Start Time 12:30 Visit Stop Time 13:31 Total Visit Minutes 61 Visit Number 4 Evaluation Information Evaluation Date 01/01/23 Precautions Precautions history spinal surgery PT-OP-B Current Condition Start: 01/01/23 14:05 Freq: Status: Active Protocol: Document 01/29/23 12:30 SAK (Rec: 01/29/23 13:27 [facility] [id number]) Current Condition History of Current Condition Onset Date 8 weeks Current Complaints marcella LB and buttock pain History of Current Condition was doing PT for left knee pain and had onset of marcella LB and buttock pain which is now more painful than knee, and has not improved no matter what she has tried; exercise, no exercise, medications. 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 Grade 1 anterolisthesis of L4 on L5 and L5 on S1 secondary to facet arthrosis. Treatment Goals Patient/Caregiver Goals Minimize pain, resume prior level of function PT-OP-C Subjective Start: 01/01/23 14:05 Freq: Status: Active Protocol: Document 01/29/23 12:30 SAK (Rec: 01/29/23 13:27 [facility] [id number]) OP-PT Subjective Patient Comments Patient Comments Not as much of the clenching feeling. THinks PT was helpful , inc pain after last aquatic exercise PT-OP-G Mobility & Gait Start: 01/01/23 14:05 Freq: Status: Active Protocol: Document 01/01/23 14:00 SAK (Rec: 01/06/23 11:25 [facility] [id number]) OP Gait Assessment Gait Gait Assistance Required: Independent Assistive Devices Assistive Device None Gait Deviations General Gait Pattern Antalgic,Decreased Stride Length,Decreased Feet Clearance,Lateral Trunk Lean Factors Limiting Gait Function Factors Limiting Gait Function Decreased Activity Tolerance, Difficulty Following Directions,Pain PT-OP-H Neuro Start: 01/01/23 14:05 Freq: Status: Active Protocol: Document 01/01/23 14:00 [facility] (Rec: 01/06/23 11:25 [facility] [id number]) Sensation Evaluation Gross Sensation Gross Sensation WNL PT-OP-J Posture/Palpation/Skin Start: 01/01/23 14:05 Freq: Status: Active Protocol: Document 01/01/23 14:00 [facility] (Rec: 01/06/23 11:25 [facility] [id number]) Posture Evaluation Position Standing Head/C-Spine Posture Forward Head T-Spine Posture Increased Kyphosis L-Spine Posture Increased Lordosis Shoulder Subluxation Position (L) Anterior,(R) Anterior Scapula Posture (L) Protracted,(R) Protracted Arm Posture (L) Internally Rotated,(R) Internally Rotated Pelvis Posture Anteriorly Tilted Hip Posture (L) Flexed,(R) Flexed Foot Arch (L) Low Arch,(R) Low Arch Palpation Assessment Location Two Palpation Location IT bands Palpation Findings Soft Tissue Tightness,Muscle Guarding,Tenderness One Palpation Location piriformis marcella Palpation Findings Soft Tissue Tightness, Tenderness PT-OP-K Range of Motion Start: 01/01/23 14:05 Freq: Status: Active Protocol: Document 01/01/23 14:00 [facility] (Rec: 01/06/23 11:25 [facility] [id number]) Lumbar Spine Range of Motion Lumbar Spine Active Flexion 35 Extension 10 Rotation Left 20 Rotation Right 25 Lateral Flexion Left 20 Lateral Flexion Right 25 ROM Limitations Soft Tissue Tightness,Pain Hip Goniometric Range of Motion Hip Left Flexion w/Knee Flexed 90 Straight Leg Raise 55 Extension 0 Abduction 15 Internal Rotation 154 Right Flexion w/Knee Flexed 95 Straight Leg Raise 55 Extension 0 Abduction 15 Internal Rotation 15 External Rotation 45 PT-OP-L Special Tests Start: 01/01/23 14:05 Freq: Status: Active Protocol: Document 01/01/23 14:00 [facility] (Rec: 01/06/23 11:25 [facility] [id number]) Special Tests Lumbar Spine Special Tests Straight Leg Raise Test Results + Comments muscle tightness Manual Traction Test Results + dec symptoms Passive Neck Flexion Test Results - Moise Test Results - Compression Test Results + PT-OP-M Strength Start: 01/01/23 14:05 Freq: Status: Active Protocol: Document 01/01/23 14:00 [facility] (Rec: 01/06/23 11:25 [facility] [id number]) Trunk Strength Trunk Manual Muscle Testing Flexion 3+ Fair+ Extension 3+ Fair+ Core Stabilization poor Hip Strength Hip Manual Muscle Testing marcella Flexion (L2) 4 Good Extension (S1) 4- Good- Abduction 3+ Fair+ Adduction 4- Good- External Rotation 3+ Fair+ Internal Rotation 4- Good- Knee Strength Knee Manual Muscle Testing Left Flexion (S2) 4 Good Extension (L3) 4 Good Right Flexion (S2) 5 Normal Extension (L3) 5 Normal PT-OP-Q Treatments Start: 01/01/23 14:05 Freq: Status: Active Protocol: Document 01/29/23 12:30 [facility] (Rec: 01/29/23 13:27 [facility] [id number]) Manual Therapy Treatment Soft Tissue Mobilization piriformis Mobilization Type Myofascial Release,Sustained Pressure Intensity/Depth Moderate Body Position Prone Comments pillow under hips and feet lumbar paraspinals Mobilization Type Myofascial Release,Strumming Intensity/Depth Moderate Body Position Prone Comments pillow under hips and feet Joint Mobilizations sacrum Direction counternutation Grade II Body Position Prone Reps/Duration 3 min Self-Care/Home Management Treatment Education Patient Education Body Mechanics,Home Exercise Program,Pain Management, Posture Other Education reviewed importance of dec arch in lumbar spine in standing; do PPT and unlock knees, do wt shifts side to side, front/back when on road trip can do ex sitting; piriformis stretch, PPT, glut set, add amelia, seated clam. Also instructed at least every hour lean seat back as far as possible for a few min to get spine in different position and take ice pack. PT-OP-R Modalities Start: 01/01/23 14:05 Freq: Status: Active Protocol: Document 01/29/23 12:30 [facility] (Rec: 01/29/23 13:27 [facility] [id number]) Hot Pack/Cold Pack Treatment Hot Pack Location R posterior hip, piriformis Patient Position Prone Treatment Duration (minutes) 5 Patient Tolerance Good Comments prior to traction Cold Pack Location marcella l/s, SI, buttocks Patient Position Hooklying Treatment Duration (minutes) 10 Patient Tolerance Good Comments 90/90 position after traction Spinal Traction Traction Treatment Lumbar Method Static Patient Position Hooklying Force Applied (Pounds) 42 Duration of Treatment (Minutes) 10 Traction Treatment Comment [facility] Ultrasound Therapy Treatment lumbosacral spine Comments not done due to patient wearing heart monitor PT-OP-T Assessment and Plan Start: 01/01/23 14:05 Freq: Status: Active Protocol: Document 01/29/23 12:30 [facility] (Rec: 01/29/23 13:27 [facility] [id number]) Physical Therapy Assessment Goals Three Impairment weakness Impairment weakness throughout hips and core with poor core stabilization Short Term Goal (STG) Patient to be instructed in HEP for purposes of core and hip strengthening and core stab STG Duration 02/01/23 Delivery Tech Goal (LTG) Patient to be independent and compliant with HEP and demonstrate improvement in strength to at least 4+/5 for improved joint support and tolerance for usual activities LTG Duration 04/03/23 Four Impairment postural dysfunction and poor body mechanics Impairment Excess lumbar lordosis, lateral lean to right, increased thoracic kyphosis Short Term Goal (STG) pt to be instructed in neutral postural alignment and correct body mechanics for her usual ADL's STG Duration 02/01/23 Delivery Tech Goal (LTG) Patient to demonstrate improved postural awareness and ability to self correct her posture and demonstrate good body mechanics for her usual tasks LTG Duration 04/03/23 Two Impairment Dec activity tolerance Impairment Oswestry disability index score 32% LEFS 64% Senior Care Goal (LTG) Decrease TAVO score to no greater than 15%, and improve LEFS to at least 75% as measure of improved activity tolerance and quality of life LTG Duration 04/03/23 One Impairment marcella LB, buttock and posterior thigh pain Impairment 6/10 on pain scale Delivery Tech Goal (LTG) Decrease pain by at least 75% to improve patient ability to return to PLF LTG Duration 04/03/23 Assessment Summary Assessment Patient noting some improvement in pain, less clenching in buttocks, less pain medication. Increased pull with mechanical traction today with good tolerance. No ultrasound due to patient currently wearing heart monitor. Manual techniques as above instead. Physical Therapy Plan Frequency and Duration Frequency of Treatment 2x/Week Duration of treatment (weeks) 12 Plan of Care Start Date 01/01/23 Plan of Care End Date 04/03/23 Therapeutic Interventions Therapeutic Interventions Gait Training,Home Exercise Program,Manual Therapy,Patient /Caregiver Education,Self-Care /Home Management,Soft Tissue Mobilization,Taping, Therapeutic Activities, Therapeutic Exercises Modalities Cold Pack/Ice Massage,Electric Stimulation,Hot Packs, Infrared Therapy,Iontophoresis ,Traction- Mechanical, Ultrasound Next Visit Focus/Plan Next Note Type Treatment Note Next Visit Plan ASsess response to manual treatment plus mechanical traction higher weight. Resume ultrasound if pt environmental monitoring specialist removed.
--- NOTE | 2023-02-18 08:15 | PT-OP ANOTE ---
cancelled due to schedule conflict, having MRI
--- NOTE | 2023-02-20 17:20 | PT.OTN ---
Current Diagnoses Polyneuropathy, unspecified (02/20/23) Low back pain, unspecified (02/20/23) Difficulty in walking, not elsewhere classified (02/20/23) Abnormal posture (02/20/23) Weakness (02/20/23) Physical Therapy Treatment Note PT-OP-A Visit Information Start: 01/01/23 14:05 Freq: Status: Active Protocol: Document 02/20/23 11:19 SAK (Rec: 02/20/23 11:59 [facility] [id number]) Out-Patient Physical Therapy Visit Information Visit Information Visit Type Treatment Note Visit Start Time 11:19 Visit Stop Time 12:20 Total Visit Minutes 61 Visit Number 5 PT-OP-B Current Condition Start: 01/01/23 14:05 Freq: Status: Active Protocol: Document 01/29/23 12:30 SAK (Rec: 01/29/23 13:27 [facility] [id number]) Current Condition History of Current Condition Onset Date 8 weeks Current Complaints marcella LB and buttock pain History of Current Condition was doing PT for left knee pain and had onset of marcella LB and buttock pain which is now more painful than knee, and has not improved no matter what she has tried; exercise, no exercise, medications. 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 Grade 1 anterolisthesis of L4 on L5 and L5 on S1 secondary to facet arthrosis. Treatment Goals Patient/Caregiver Goals Minimize pain, resume prior level of function PT-OP-C Subjective Start: 01/01/23 14:05 Freq: Status: Active Protocol: Document 02/20/23 11:19 SAK (Rec: 02/20/23 11:59 [facility] [id number]) OP-PT Subjective Patient Comments Patient Comments Reports after last PT session didn't take pain meds for a few days. On trip took some pain meds, did some stretching in car, reports less and less exercises as day went on. One day took 1.8 mile walk around [employer] [place]. Right knee aggravated, had injection right knee yesterday. Pain aggravated with bent over hip extension. Found chair at her brothers ([facility] recliner) that was most comfortable for her and is going to purchases PT-OP-G Mobility & Gait Start: 01/01/23 14:05 Freq: Status: Active Protocol: Document 01/01/23 14:00 [facility] (Rec: 01/06/23 11:25 [facility] [id number]) OP Gait Assessment Gait Gait Assistance Required: Independent Assistive Devices Assistive Device None Gait Deviations General Gait Pattern Antalgic,Decreased Stride Length,Decreased Feet Clearance,Lateral Trunk Lean Factors Limiting Gait Function Factors Limiting Gait Function Decreased Activity Tolerance, Difficulty Following Directions,Pain PT-OP-H Neuro Start: 01/01/23 14:05 Freq: Status: Active Protocol: Document 01/01/23 14:00 [facility] (Rec: 01/06/23 11:25 [facility] [id number]) Sensation Evaluation Gross Sensation Gross Sensation WNL PT-OP-J Posture/Palpation/Skin Start: 01/01/23 14:05 Freq: Status: Active Protocol: Document 01/01/23 14:00 [facility] (Rec: 01/06/23 11:25 [facility] [id number]) Posture Evaluation Position Standing Head/C-Spine Posture Forward Head T-Spine Posture Increased Kyphosis L-Spine Posture Increased Lordosis Shoulder Subluxation Position (L) Anterior,(R) Anterior Scapula Posture (L) Protracted,(R) Protracted Arm Posture (L) Internally Rotated,(R) Internally Rotated Pelvis Posture Anteriorly Tilted Hip Posture (L) Flexed,(R) Flexed Foot Arch (L) Low Arch,(R) Low Arch Palpation Assessment Location Two Palpation Location IT bands Palpation Findings Soft Tissue Tightness,Muscle Guarding,Tenderness One Palpation Location piriformis marcella Palpation Findings Soft Tissue Tightness, Tenderness PT-OP-K Range of Motion Start: 01/01/23 14:05 Freq: Status: Active Protocol: Document 01/01/23 14:00 [facility] (Rec: 01/06/23 11:25 [facility] [id number]) Lumbar Spine Range of Motion Lumbar Spine Active Flexion 35 Extension 10 Rotation Left 20 Rotation Right 25 Lateral Flexion Left 20 Lateral Flexion Right 25 ROM Limitations Soft Tissue Tightness,Pain Hip Goniometric Range of Motion Hip Left Flexion w/Knee Flexed 90 Straight Leg Raise 55 Extension 0 Abduction 15 Internal Rotation 154 Right Flexion w/Knee Flexed 95 Straight Leg Raise 55 Extension 0 Abduction 15 Internal Rotation 15 External Rotation 45 PT-OP-L Special Tests Start: 01/01/23 14:05 Freq: Status: Active Protocol: Document 01/01/23 14:00 [facility] (Rec: 01/06/23 11:25 [facility] [id number]) Special Tests Lumbar Spine Special Tests Straight Leg Raise Test Results + Comments muscle tightness Manual Traction Test Results + dec symptoms Passive Neck Flexion Test Results - Moise Test Results - Compression Test Results + PT-OP-M Strength Start: 01/01/23 14:05 Freq: Status: Active Protocol: Document 01/01/23 14:00 [facility] (Rec: 01/06/23 11:25 [facility] [id number]) Trunk Strength Trunk Manual Muscle Testing Flexion 3+ Fair+ Extension 3+ Fair+ Core Stabilization poor Hip Strength Hip Manual Muscle Testing marcella Flexion (L2) 4 Good Extension (S1) 4- Good- Abduction 3+ Fair+ Adduction 4- Good- External Rotation 3+ Fair+ Internal Rotation 4- Good- Knee Strength Knee Manual Muscle Testing Left Flexion (S2) 4 Good Extension (L3) 4 Good Right Flexion (S2) 5 Normal Extension (L3) 5 Normal PT-OP-Q Treatments Start: 01/01/23 14:05 Freq: Status: Active Protocol: Document 02/20/23 10:19 [facility] (Rec: 02/20/23 17:20 [facility] [id number]) Manual Therapy Treatment Soft Tissue Mobilization piriformis Mobilization Type Myofascial Release,Sustained Pressure Intensity/Depth Moderate Body Position Prone Comments pillow under hips and feet lumbar paraspinals Mobilization Type Myofascial Release,Strumming Intensity/Depth Moderate Body Position Prone Comments pillow under hips and feet Self-Care/Home Management Treatment Education Patient Education Home Exercise Program,Posture Other Education gently resume HEP with gradual progression to more challenging exercises. PT-OP-R Modalities Start: 01/01/23 14:05 Freq: Status: Active Protocol: Document 02/20/23 10:19 [facility] (Rec: 02/20/23 17:20 [facility] [id number]) Hot Pack/Cold Pack Treatment Cold Pack Location marcella l/s, SI, buttocks Patient Position Hooklying Treatment Duration (minutes) 10 Patient Tolerance Good Comments 90/90 position after traction Spinal Traction Traction Treatment Lumbar Method Static Patient Position Hooklying Force Applied (Pounds) 45 Duration of Treatment (Minutes) 10 Traction Treatment Comment [facility] PT-OP-T Assessment and Plan Start: 01/01/23 14:05 Freq: Status: Active Protocol: Document 02/20/23 11:19 [facility] (Rec: 02/20/23 11:59 [facility] [id number]) Physical Therapy Assessment Goals Three Impairment weakness Impairment weakness throughout hips and core with poor core stabilization Short Term Goal (STG) Patient to be instructed in HEP for purposes of core and hip strengthening and core stab STG Duration 02/01/23 [facility]ci Goal (LTG) Patient to be independent and compliant with HEP and demonstrate improvement in strength to at least 4+/5 for improved joint support and tolerance for usual activities LTG Duration 04/03/23 Four Impairment postural dysfunction and poor body mechanics Impairment Excess lumbar lordosis, lateral lean to right, increased thoracic kyphosis Short Term Goal (STG) pt to be instructed in neutral postural alignment and correct body mechanics for her usual ADL's STG Duration 02/01/23 [facility] Goal (LTG) Patient to demonstrate improved postural awareness and ability to self correct her posture and demonstrate good body mechanics for her usual tasks LTG Duration 04/03/23 Two Impairment Dec activity tolerance Impairment Oswestry disability index score 32% LEFS 64% [facility] Goal (LTG) Decrease TAVO score to no greater than 15%, and improve LEFS to at least 75% as measure of improved activity tolerance and quality of life LTG Duration 04/03/23 One Impairment marcella LB, buttock and posterior thigh pain Impairment 6/10 on pain scale [facility]ci Goal (LTG) Decrease pain by at least 75% to improve patient ability to return to PLF LTG Duration 04/03/23 Assessment Summary Assessment MRI showed stenosis, disc bulge, ligamentum flavum hypertrophy, arthritis in lumbar spine worst L5-S1. Patient had best days after last session with no need to take pain meds for a few days. She has been on vacation with dec compliance to HEP, PT and self-care with resulting increase in pain. Tight piriformis and lower lumbar paraspinals today. Physical Therapy Plan Frequency and Duration Frequency of Treatment 2x/Week Duration of treatment (weeks) 12 Plan of Care Start Date 01/01/23 Plan of Care End Date 04/03/23 Therapeutic Interventions Therapeutic Interventions Gait Training,Home Exercise Program,Manual Therapy,Patient /Caregiver Education,Self-Care /Home Management,Soft Tissue Mobilization,Taping, Therapeutic Activities, Therapeutic Exercises Modalities Cold Pack/Ice Massage,Electric Stimulation,Hot Packs, Infrared Therapy,Iontophoresis ,Traction- Mechanical, Ultrasound Next Visit Focus/Plan Next Note Type Treatment Note Next Visit Plan Continue PT per POC. Consider ultrasound next session as patient no longer wearing strategic planning analyst.
--- NOTE | 2023-02-24 12:04 | PT-OP ANOTE ---
cancelled due to ill
--- NOTE | 2023-02-27 15:52 | PT.OTN ---
Current Diagnoses Polyneuropathy, unspecified (02/27/23) Low back pain, unspecified (02/27/23) Difficulty in walking, not elsewhere classified (02/27/23) Abnormal posture (02/27/23) Weakness (02/27/23) Physical Therapy Treatment Note PT-OP-A Visit Information Start: 01/01/23 14:05 Freq: Status: Active Protocol: Document 02/27/23 15:01 SAK (Rec: 02/27/23 15:52 [facility] [id number]) Out-Patient Physical Therapy Visit Information Visit Information Visit Type Treatment Note Visit Start Time 15:01 Visit Stop Time 15:56 Total Visit Minutes 55 Visit Number 6 Evaluation Information Evaluation Date 01/01/23 PT-OP-B Current Condition Start: 01/01/23 14:05 Freq: Status: Active Protocol: Document 01/29/23 12:30 SAK (Rec: 01/29/23 13:27 [facility] [id number]) Current Condition History of Current Condition Onset Date 8 weeks Current Complaints marcella LB and buttock pain History of Current Condition was doing PT for left knee pain and had onset of marcella LB and buttock pain which is now more painful than knee, and has not improved no matter what she has tried; exercise, no exercise, medications. 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 Grade 1 anterolisthesis of L4 on L5 and L5 on S1 secondary to facet arthrosis. Treatment Goals Patient/Caregiver Goals Minimize pain, resume prior level of function PT-OP-C Subjective Start: 01/01/23 14:05 Freq: Status: Active Protocol: Document 02/27/23 15:01 SAK (Rec: 02/27/23 15:52 [facility] [id number]) OP-PT Subjective Patient Comments Patient Comments Reports inc LBP after inc in traction but better today. Would like to use again but with less pull. Going to aquatic exercise class consistently. PT-OP-G Mobility & Gait Start: 01/01/23 14:05 Freq: Status: Active Protocol: Document 01/01/23 14:00 SAK (Rec: 01/06/23 11:25 [facility] [id number]) OP Gait Assessment Gait Gait Assistance Required: Independent Assistive Devices Assistive Device None Gait Deviations General Gait Pattern Antalgic,Decreased Stride Length,Decreased Feet Clearance,Lateral Trunk Lean Factors Limiting Gait Function Factors Limiting Gait Function Decreased Activity Tolerance, Difficulty Following Directions,Pain PT-OP-H Neuro Start: 01/01/23 14:05 Freq: Status: Active Protocol: Document 01/01/23 14:00 [facility] (Rec: 01/06/23 11:25 [facility] [id number]) Sensation Evaluation Gross Sensation Gross Sensation WNL PT-OP-J Posture/Palpation/Skin Start: 01/01/23 14:05 Freq: Status: Active Protocol: Document 01/01/23 14:00 [facility] (Rec: 01/06/23 11:25 [facility] [id number]) Posture Evaluation Position Standing Head/C-Spine Posture Forward Head T-Spine Posture Increased Kyphosis L-Spine Posture Increased Lordosis Shoulder Subluxation Position (L) Anterior,(R) Anterior Scapula Posture (L) Protracted,(R) Protracted Arm Posture (L) Internally Rotated,(R) Internally Rotated Pelvis Posture Anteriorly Tilted Hip Posture (L) Flexed,(R) Flexed Foot Arch (L) Low Arch,(R) Low Arch Palpation Assessment Location Two Palpation Location IT bands Palpation Findings Soft Tissue Tightness,Muscle Guarding,Tenderness One Palpation Location piriformis marcella Palpation Findings Soft Tissue Tightness, Tenderness PT-OP-K Range of Motion Start: 01/01/23 14:05 Freq: Status: Active Protocol: Document 01/01/23 14:00 [facility] (Rec: 01/06/23 11:25 [facility] [id number]) Lumbar Spine Range of Motion Lumbar Spine Active Flexion 35 Extension 10 Rotation Left 20 Rotation Right 25 Lateral Flexion Left 20 Lateral Flexion Right 25 ROM Limitations Soft Tissue Tightness,Pain Hip Goniometric Range of Motion Hip Left Flexion w/Knee Flexed 90 Straight Leg Raise 55 Extension 0 Abduction 15 Internal Rotation 154 Right Flexion w/Knee Flexed 95 Straight Leg Raise 55 Extension 0 Abduction 15 Internal Rotation 15 External Rotation 45 PT-OP-L Special Tests Start: 01/01/23 14:05 Freq: Status: Active Protocol: Document 01/01/23 14:00 [facility] (Rec: 01/06/23 11:25 [facility] [id number]) Special Tests Lumbar Spine Special Tests Straight Leg Raise Test Results + Comments muscle tightness Manual Traction Test Results + dec symptoms Passive Neck Flexion Test Results - Moise Test Results - Compression Test Results + PT-OP-M Strength Start: 01/01/23 14:05 Freq: Status: Active Protocol: Document 01/01/23 14:00 [facility] (Rec: 01/06/23 11:25 [facility] [id number]) Trunk Strength Trunk Manual Muscle Testing Flexion 3+ Fair+ Extension 3+ Fair+ Core Stabilization poor Hip Strength Hip Manual Muscle Testing marcella Flexion (L2) 4 Good Extension (S1) 4- Good- Abduction 3+ Fair+ Adduction 4- Good- External Rotation 3+ Fair+ Internal Rotation 4- Good- Knee Strength Knee Manual Muscle Testing Left Flexion (S2) 4 Good Extension (L3) 4 Good Right Flexion (S2) 5 Normal Extension (L3) 5 Normal PT-OP-Q Treatments Start: 01/01/23 14:05 Freq: Status: Active Protocol: Document 02/27/23 15:01 [facility] (Rec: 02/27/23 15:52 [facility] [id number]) Cardio Equipment Recumbent Stepper (Sci-Fit) Duration (Minutes) 6 Resistance 2 Seat Position 10 Other cues for LE alignment Therapeutic Exercises Supine Exercises SKTc Reps/Minutes 2x30 Comments on moist heat piriformis Reps/Minutes 2x30 Comments on moist heat figure 4 Reps/Minutes 2x30 Comments on moist heat Manual Therapy Treatment Soft Tissue Mobilization piriformis Mobilization Type Myofascial Release,Sustained Pressure Intensity/Depth Moderate Body Position Prone Comments pillow under hips and feet lumbar paraspinals Mobilization Type Myofascial Release,Strumming Intensity/Depth Moderate Body Position Prone Comments pillow under hips and feet Joint Mobilizations sacrum Direction counternutation Grade II Body Position Prone Reps/Duration 3 min Self-Care/Home Management Treatment Education Patient Education Home Exercise Program,Posture Other Education used spine model to show patient anatomy of stenosis and benefit of neutral posture and manual to sacrum. PT-OP-R Modalities Start: 01/01/23 14:05 Freq: Status: Active Protocol: Document 02/27/23 15:01 [facility] (Rec: 02/27/23 15:52 [facility] [id number]) Hot Pack/Cold Pack Treatment Cold Pack Location marcella l/s, SI, buttocks Patient Position Hooklying Treatment Duration (minutes) 10 Patient Tolerance Good Comments 90/90 position after traction Spinal Traction Traction Treatment Lumbar Method Static Patient Position Hooklying Force Applied (Pounds) 45 Duration of Treatment (Minutes) 10 Traction Treatment Comment [facility] PT-OP-T Assessment and Plan Start: 01/01/23 14:05 Freq: Status: Active Protocol: Document 02/27/23 15:01 VANDANA (Rec: 02/27/23 15:52 [facility] [id number]) Physical Therapy Assessment Goals Three Impairment weakness Impairment weakness throughout hips and core with poor core stabilization Short Term Goal (STG) Patient to be instructed in HEP for purposes of core and hip strengthening and core stab STG Duration 02/01/23 Flat Cutter Goal (LTG) Patient to be independent and compliant with HEP and demonstrate improvement in strength to at least 4+/5 for improved joint support and tolerance for usual activities LTG Duration 04/03/23 Four Impairment postural dysfunction and poor body mechanics Impairment Excess lumbar lordosis, lateral lean to right, increased thoracic kyphosis Short Term Goal (STG) pt to be instructed in neutral postural alignment and correct body mechanics for her usual ADL's STG Duration 02/01/23 Flat Cutter Goal (LTG) Patient to demonstrate improved postural awareness and ability to self correct her posture and demonstrate good body mechanics for her usual tasks LTG Duration 04/03/23 Two Impairment Dec activity tolerance Impairment Oswestry disability index score 32% LEFS 64% Senior Living Goal (LTG) Decrease TAVO score to no greater than 15%, and improve LEFS to at least 75% as measure of improved activity tolerance and quality of life LTG Duration 04/03/23 One Impairment marcella LB, buttock and posterior thigh pain Impairment 6/10 on pain scale Flat Cutter Goal (LTG) Decrease pain by at least 75% to improve patient ability to return to PLF LTG Duration 04/03/23 Physical Therapy Plan Frequency and Duration Frequency of Treatment 2x/Week Duration of treatment (weeks) 12 Plan of Care Start Date 01/01/23 Plan of Care End Date 04/03/23 Therapeutic Interventions Therapeutic Interventions Gait Training,Home Exercise Program,Manual Therapy,Patient /Caregiver Education,Self-Care /Home Management,Soft Tissue Mobilization,Taping, Therapeutic Activities, Therapeutic Exercises Modalities Cold Pack/Ice Massage,Electric Stimulation,Hot Packs, Infrared Therapy,Iontophoresis ,Traction- Mechanical, Ultrasound Next Visit Focus/Plan Next Note Type Treatment Note Next Visit Plan Continue PT per POC. Consider ultrasound next session as patient no longer wearing site monitor. Also consider instruction in realignment exercises from DARIEL .
--- NOTE | 2023-03-03 16:06 | PT.OTN ---
Current Diagnoses Polyneuropathy, unspecified (03/03/23) Low back pain, unspecified (03/03/23) Difficulty in walking, not elsewhere classified (03/03/23) Abnormal posture (03/03/23) Weakness (03/03/23) Physical Therapy Treatment Note PT-OP-A Visit Information Start: 01/01/23 14:05 Freq: Status: Active Protocol: Document 03/03/23 15:01 SAK (Rec: 03/03/23 16:05 [facility] [id number]) Out-Patient Physical Therapy Visit Information Visit Information Visit Type Treatment Note Visit Start Time 15:01 Visit Stop Time 15:56 Total Visit Minutes 55 Visit Number 7 Evaluation Information Evaluation Date 01/01/23 PT-OP-B Current Condition Start: 01/01/23 14:05 Freq: Status: Active Protocol: Document 01/29/23 12:30 SAK (Rec: 01/29/23 13:27 [facility] [id number]) Current Condition History of Current Condition Onset Date 8 weeks Current Complaints marcella LB and buttock pain History of Current Condition was doing PT for left knee pain and had onset of marcella LB and buttock pain which is now more painful than knee, and has not improved no matter what she has tried; exercise, no exercise, medications. 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 Grade 1 anterolisthesis of L4 on L5 and L5 on S1 secondary to facet arthrosis. Treatment Goals Patient/Caregiver Goals Minimize pain, resume prior level of function PT-OP-C Subjective Start: 01/01/23 14:05 Freq: Status: Active Protocol: Document 03/03/23 15:01 SAK (Rec: 03/03/23 16:05 [facility] [id number]) OP-PT Subjective Patient Comments Patient Comments Still had inc LBP after use of traction even with lower pull . Requests no traction today PT-OP-G Mobility & Gait Start: 01/01/23 14:05 Freq: Status: Active Protocol: Document 01/01/23 14:00 SAK (Rec: 01/06/23 11:25 SAK [id number]) OP Gait Assessment Gait Gait Assistance Required: Independent Assistive Devices Assistive Device None Gait Deviations General Gait Pattern Antalgic,Decreased Stride Length,Decreased Feet Clearance,Lateral Trunk Lean Factors Limiting Gait Function Factors Limiting Gait Function Decreased Activity Tolerance, Difficulty Following Directions,Pain PT-OP-H Neuro Start: 01/01/23 14:05 Freq: Status: Active Protocol: Document 01/01/23 14:00 [facility] (Rec: 01/06/23 11:25 [facility] [id number]) Sensation Evaluation Gross Sensation Gross Sensation WNL PT-OP-J Posture/Palpation/Skin Start: 01/01/23 14:05 Freq: Status: Active Protocol: Document 01/01/23 14:00 [facility] (Rec: 01/06/23 11:25 [facility] [id number]) Posture Evaluation Position Standing Head/C-Spine Posture Forward Head T-Spine Posture Increased Kyphosis L-Spine Posture Increased Lordosis Shoulder Subluxation Position (L) Anterior,(R) Anterior Scapula Posture (L) Protracted,(R) Protracted Arm Posture (L) Internally Rotated,(R) Internally Rotated Pelvis Posture Anteriorly Tilted Hip Posture (L) Flexed,(R) Flexed Foot Arch (L) Low Arch,(R) Low Arch Palpation Assessment Location Two Palpation Location IT bands Palpation Findings Soft Tissue Tightness,Muscle Guarding,Tenderness One Palpation Location piriformis marcella Palpation Findings Soft Tissue Tightness, Tenderness PT-OP-K Range of Motion Start: 01/01/23 14:05 Freq: Status: Active Protocol: Document 01/01/23 14:00 [facility] (Rec: 01/06/23 11:25 [facility] [id number]) Lumbar Spine Range of Motion Lumbar Spine Active Flexion 35 Extension 10 Rotation Left 20 Rotation Right 25 Lateral Flexion Left 20 Lateral Flexion Right 25 ROM Limitations Soft Tissue Tightness,Pain Hip Goniometric Range of Motion Hip Left Flexion w/Knee Flexed 90 Straight Leg Raise 55 Extension 0 Abduction 15 Internal Rotation 154 Right Flexion w/Knee Flexed 95 Straight Leg Raise 55 Extension 0 Abduction 15 Internal Rotation 15 External Rotation 45 PT-OP-L Special Tests Start: 01/01/23 14:05 Freq: Status: Active Protocol: Document 01/01/23 14:00 [facility] (Rec: 01/06/23 11:25 [facility] [id number]) Special Tests Lumbar Spine Special Tests Straight Leg Raise Test Results + Comments muscle tightness Manual Traction Test Results + dec symptoms Passive Neck Flexion Test Results - Moise Test Results - Compression Test Results + PT-OP-M Strength Start: 01/01/23 14:05 Freq: Status: Active Protocol: Document 01/01/23 14:00 [facility] (Rec: 01/06/23 11:25 [facility] [id number]) Trunk Strength Trunk Manual Muscle Testing Flexion 3+ Fair+ Extension 3+ Fair+ Core Stabilization poor Hip Strength Hip Manual Muscle Testing marcella Flexion (L2) 4 Good Extension (S1) 4- Good- Abduction 3+ Fair+ Adduction 4- Good- External Rotation 3+ Fair+ Internal Rotation 4- Good- Knee Strength Knee Manual Muscle Testing Left Flexion (S2) 4 Good Extension (L3) 4 Good Right Flexion (S2) 5 Normal Extension (L3) 5 Normal PT-OP-Q Treatments Start: 01/01/23 14:05 Freq: Status: Active Protocol: Document 03/03/23 15:01 [facility] (Rec: 03/03/23 16:05 [facility] [id number]) Therapeutic Exercises Supine Exercises 90-90 lift Reps/Minutes 5x Comments DARIEL ex, mod cues Sidelying Exercises left sidelying right glute max Reps/Minutes 5x Comments DARIEL ex, mod cues right s/l respiratory scissor slides Reps/Minutes 5x Comments DARIEL ex, mod cues Therapeutic Activity Therapeutic Activity DARIEL testing Comments adductor drop test, HS length test, extension drop test ( Moise), hip rotation ROM testing. Manual Therapy Treatment Soft Tissue Mobilization piriformis Mobilization Type Myofascial Release,Sustained Pressure Intensity/Depth Moderate Body Position Prone Comments pillow under hips and feet lumbar paraspinals Mobilization Type Myofascial Release,Strumming Intensity/Depth Moderate Body Position Prone Comments pillow under hips and feet Joint Mobilizations sacrum Direction counternutation Grade II Body Position Prone Reps/Duration 3 min Self-Care/Home Management Treatment Education Other Education issued HO with DARIEL myokinematic confucianist ex PT-OP-R Modalities Start: 01/01/23 14:05 Freq: Status: Active Protocol: Document 03/03/23 15:01 [facility] (Rec: 03/03/23 16:05 [facility] [id number]) Hot Pack/Cold Pack Treatment Cold Pack Location marcella l/s, SI, buttocks Treatment Duration (minutes) 10 Patient Tolerance Good Comments 90/90 position PT-OP-T Assessment and Plan Start: 01/01/23 14:05 Freq: Status: Active Protocol: Document 03/03/23 15:01 V[facility]DANA (Rec: 03/03/23 16:05 [facility] [id number]) Physical Therapy Assessment Goals Three Impairment weakness Impairment weakness throughout hips and core with poor core stabilization Short Term Goal (STG) Patient to be instructed in HEP for purposes of core and hip strengthening and core stab STG Duration 02/01/23 Correction Goal (LTG) Patient to be independent and compliant with HEP and demonstrate improvement in strength to at least 4+/5 for improved joint support and tolerance for usual activities LTG Duration 04/03/23 Four Impairment postural dysfunction and poor body mechanics Impairment Excess lumbar lordosis, lateral lean to right, increased thoracic kyphosis Short Term Goal (STG) pt to be instructed in neutral postural alignment and correct body mechanics for her usual ADL's STG Duration 02/01/23 Correction Goal (LTG) Patient to demonstrate improved postural awareness and ability to self correct her posture and demonstrate good body mechanics for her usual tasks LTG Duration 04/03/23 Two Impairment Dec activity tolerance Impairment Oswestry disability index score 32% LEFS 64% Entertainment [employer] Goal (LTG) Decrease TAVO score to no greater than 15%, and improve LEFS to at least 75% as measure of improved activity tolerance and quality of life LTG Duration 04/03/23 One Impairment marcella LB, buttock and posterior thigh pain Impairment 6/10 on pain scale Entertainment Director Goal (LTG) Decrease pain by at least 75% to improve patient ability to return to PLF LTG Duration 04/03/23 Assessment Summary Assessment Moderate cues for new DARIEL myokinematic exercises, reported fatigue cynthia not pain after. Physical Therapy Plan Frequency and Duration Frequency of Treatment 2x/Week Duration of treatment (weeks) 12 Plan of Care Start Date 01/01/23 Plan of Care End Date 04/03/23 Therapeutic Interventions Therapeutic Interventions Gait Training,Home Exercise Program,Manual Therapy,Patient /Caregiver Education,Self-Care /Home Management,Soft Tissue Mobilization,Taping, Therapeutic Activities, Therapeutic Exercises Modalities Cold Pack/Ice Massage,Electric Stimulation,Hot Packs, Infrared Therapy,Iontophoresis ,Traction- Mechanical, Ultrasound Next Visit Focus/Plan Next Note Type Treatment Note Next Visit Plan Evaluate response to today's treatment. Ultrasound pending response.
--- NOTE | 2023-03-10 16:07 | PT.OTN ---
Current Diagnoses Polyneuropathy, unspecified (03/10/23) Low back pain, unspecified (03/10/23) Difficulty in walking, not elsewhere classified (03/10/23) Abnormal posture (03/10/23) Weakness (03/10/23) Physical Therapy Treatment Note PT-OP-A Visit Information Start: 01/01/23 14:05 Freq: Status: Active Protocol: Document 03/10/23 14:58 SAK (Rec: 03/10/23 16:07 [facility] [id number]) Out-Patient Physical Therapy Visit Information Visit Information Visit Type Treatment Note Visit Start Time 15:01 Visit Stop Time 15:56 Total Visit Minutes 55 Visit Number 7 PT-OP-B Current Condition Start: 01/01/23 14:05 Freq: Status: Active Protocol: Document 01/29/23 12:30 SAK (Rec: 01/29/23 13:27 [facility] [id number]) Current Condition History of Current Condition Onset Date 8 weeks Current Complaints marcella LB and buttock pain History of Current Condition was doing PT for left knee pain and had onset of marcella LB and buttock pain which is now more painful than knee, and has not improved no matter what she has tried; exercise, no exercise, medications. 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 Grade 1 anterolisthesis of L4 on L5 and L5 on S1 secondary to facet arthrosis. Treatment Goals Patient/Caregiver Goals Minimize pain, resume prior level of function PT-OP-C Subjective Start: 01/01/23 14:05 Freq: Status: Active Protocol: Document 03/10/23 14:58 SAK (Rec: 03/10/23 16:07 [facility] [id number]) OP-PT Subjective Patient Comments Patient Comments Doing cognitive behavior therapy, slept in recliner and woke up hurting a lot. Feels the exercise with feet on the wall very helpful in decreasing the pain, now back to baseline. Not sure if doing the other exercises correctly. PT-OP-G Mobility & Gait Start: 01/01/23 14:05 Freq: Status: Active Protocol: Document 01/01/23 14:00 SAK (Rec: 01/06/23 11:25 [facility] [id number]) OP Gait Assessment Gait Gait Assistance Required: Independent Assistive Devices Assistive Device None Gait Deviations General Gait Pattern Antalgic,Decreased Stride Length,Decreased Feet Clearance,Lateral Trunk Lean Factors Limiting Gait Function Factors Limiting Gait Function Decreased Activity Tolerance, Difficulty Following Directions,Pain PT-OP-H Neuro Start: 01/01/23 14:05 Freq: Status: Active Protocol: Document 01/01/23 14:00 [facility] (Rec: 01/06/23 11:25 SAK [id number]) Sensation Evaluation Gross Sensation Gross Sensation WNL PT-OP-J Posture/Palpation/Skin Start: 01/01/23 14:05 Freq: Status: Active Protocol: Document 01/01/23 14:00 [facility] (Rec: 01/06/23 11:25 SAK [id number]) Posture Evaluation Position Standing Head/C-Spine Posture Forward Head T-Spine Posture Increased Kyphosis L-Spine Posture Increased Lordosis Shoulder Subluxation Position (L) Anterior,(R) Anterior Scapula Posture (L) Protracted,(R) Protracted Arm Posture (L) Internally Rotated,(R) Internally Rotated Pelvis Posture Anteriorly Tilted Hip Posture (L) Flexed,(R) Flexed Foot Arch (L) Low Arch,(R) Low Arch Palpation Assessment Location Two Palpation Location IT bands Palpation Findings Soft Tissue Tightness,Muscle Guarding,Tenderness One Palpation Location piriformis marcella Palpation Findings Soft Tissue Tightness, Tenderness PT-OP-K Range of Motion Start: 01/01/23 14:05 Freq: Status: Active Protocol: Document 01/01/23 14:00 [facility] (Rec: 01/06/23 11:25 [facility] [id number]) Lumbar Spine Range of Motion Lumbar Spine Active Flexion 35 Extension 10 Rotation Left 20 Rotation Right 25 Lateral Flexion Left 20 Lateral Flexion Right 25 ROM Limitations Soft Tissue Tightness,Pain Hip Goniometric Range of Motion Hip Left Flexion w/Knee Flexed 90 Straight Leg Raise 55 Extension 0 Abduction 15 Internal Rotation 154 Right Flexion w/Knee Flexed 95 Straight Leg Raise 55 Extension 0 Abduction 15 Internal Rotation 15 External Rotation 45 PT-OP-L Special Tests Start: 01/01/23 14:05 Freq: Status: Active Protocol: Document 01/01/23 14:00 [facility] (Rec: 01/06/23 11:25 SAK [id number]) Special Tests Lumbar Spine Special Tests Straight Leg Raise Test Results + Comments muscle tightness Manual Traction Test Results + dec symptoms Passive Neck Flexion Test Results - Moise Test Results - Compression Test Results + PT-OP-M Strength Start: 01/01/23 14:05 Freq: Status: Active Protocol: Document 01/01/23 14:00 [facility] (Rec: 01/06/23 11:25 [facility] [id number]) Trunk Strength Trunk Manual Muscle Testing Flexion 3+ Fair+ Extension 3+ Fair+ Core Stabilization poor Hip Strength Hip Manual Muscle Testing marcella Flexion (L2) 4 Good Extension (S1) 4- Good- Abduction 3+ Fair+ Adduction 4- Good- External Rotation 3+ Fair+ Internal Rotation 4- Good- Knee Strength Knee Manual Muscle Testing Left Flexion (S2) 4 Good Extension (L3) 4 Good Right Flexion (S2) 5 Normal Extension (L3) 5 Normal PT-OP-Q Treatments Start: 01/01/23 14:05 Freq: Status: Active Protocol: Document 03/10/23 14:58 [facility] (Rec: 03/10/23 16:07 [facility] [id number]) Cardio Equipment Recumbent Stepper (Sci-Fit) Duration (Minutes) 6 Resistance 2 Seat Position 10 Other cues for LE alignment Therapeutic Exercises Supine Exercises 90-90 supported hip lift with hemibridge Reps/Minutes 5x 90-90 lift Reps/Minutes 5x Comments DARIEL ex, mod cues Sidelying Exercises left sidelying right glute max Reps/Minutes 5x Comments DARIEL ex, mod cues right s/l respiratory scissor slides Reps/Minutes 5x Comments DARIEL ex, mod cues Standing Exercises gluteal walk Reps/Minutes 3 min Comments cues for pt hands on gluteals to facil inc activation Manual Therapy Treatment Soft Tissue Mobilization piriformis Mobilization Type Myofascial Release,Sustained Pressure Intensity/Depth Moderate Body Position Prone Comments pillow under hips and feet Self-Care/Home Management Treatment Education Other Education updated HO with 90-9- supported hip lift with hemibridge PT-OP-R Modalities Start: 01/01/23 14:05 Freq: Status: Active Protocol: Document 03/10/23 14:58 [facility] (Rec: 03/10/23 16:07 [facility] [id number]) Hot Pack/Cold Pack Treatment Hot Pack Location R posterior hip, piriformis Patient Position Prone Treatment Duration (minutes) 15 Patient Tolerance Good PT-OP-T Assessment and Plan Start: 01/01/23 14:05 Freq: Status: Active Protocol: Document 03/10/23 14:58 [facility] (Rec: 03/10/23 16:07 [facility] [id number]) Physical Therapy Assessment Goals Three Impairment weakness Impairment weakness throughout hips and core with poor core stabilization Short Term Goal (STG) Patient to be instructed in HEP for purposes of core and hip strengthening and core stab STG Duration 02/01/23 Investor Relations Director Goal (LTG) Patient to be independent and compliant with HEP and demonstrate improvement in strength to at least 4+/5 for improved joint support and tolerance for usual activities LTG Duration 04/03/23 Four Impairment postural dysfunction and poor body mechanics Impairment Excess lumbar lordosis, lateral lean to right, increased thoracic kyphosis Short Term Goal (STG) pt to be instructed in neutral postural alignment and correct body mechanics for her usual ADL's STG Duration 02/01/23 Investor Relations Director Goal (LTG) Patient to demonstrate improved postural awareness and ability to self correct her posture and demonstrate good body mechanics for her usual tasks LTG Duration 04/03/23 Two Impairment Dec activity tolerance Impairment Oswestry disability index score 32% LEFS 64% [facility] Goal (LTG) Decrease TAVO score to no greater than 15%, and improve LEFS to at least 75% as measure of improved activity tolerance and quality of life LTG Duration 04/03/23 One Impairment marcella LB, buttock and posterior thigh pain Impairment 6/10 on pain scale [facility] Goal (LTG) Decrease pain by at least 75% to improve patient ability to return to PLF LTG Duration 04/03/23 Assessment Summary Assessment Patient demonstrated much improved understanding of DARIEL ex after review today. Added 90-90 supported hip lift with hemibridge. Trial ultrasound right buttock with good tolerance. Physical Therapy Plan Frequency and Duration Frequency of Treatment 2x/Week Duration of treatment (weeks) 12 Plan of Care Start Date 01/01/23 Plan of Care End Date 04/03/23 Therapeutic Interventions Therapeutic Interventions Gait Training,Home Exercise Program,Manual Therapy,Patient /Caregiver Education,Self-Care /Home Management,Soft Tissue Mobilization,Taping, Therapeutic Activities, Therapeutic Exercises Modalities Cold Pack/Ice Massage,Electric Stimulation,Hot Packs, Infrared Therapy,Iontophoresis ,Traction- Mechanical, Ultrasound Next Visit Focus/Plan Next Note Type Treatment Note Next Visit Plan Evaluate response to today's treatment with progression of ex and addition of ultrasound. Progress ther ex as tolerated.
--- NOTE | 2023-03-13 16:24 | PT.OTN ---
Current Diagnoses Polyneuropathy, unspecified (03/13/23) Low back pain, unspecified (03/13/23) Difficulty in walking, not elsewhere classified (03/13/23) Abnormal posture (03/13/23) Weakness (03/13/23) Physical Therapy Treatment Note PT-OP-A Visit Information Start: 01/01/23 14:05 Freq: Status: Active Protocol: Document 03/13/23 14:59 SAK (Rec: 03/13/23 16:24 [facility] [id number]) Out-Patient Physical Therapy Visit Information Visit Information Visit Type Treatment Note Visit Start Time 15:01 Visit Stop Time 15:56 Total Visit Minutes 55 Visit Number 8 Evaluation Information Evaluation Date 01/01/23 Precautions Precautions history spinal surgery PT-OP-B Current Condition Start: 01/01/23 14:05 Freq: Status: Active Protocol: Document 03/13/23 14:59 [facility] (Rec: 03/13/23 16:24 [facility] [id number]) Current Condition History of Current Condition Onset Date 8 weeks Current Complaints marcella LB and buttock pain History of Current Condition was doing PT for left knee pain and had onset of marcella LB and buttock pain which is now more painful than knee, and has not improved no matter what she has tried; exercise, no exercise, medications. 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 Grade 1 anterolisthesis of L4 on L5 and L5 on S1 secondary to facet arthrosis. PT-OP-C Subjective Start: 01/01/23 14:05 Freq: Status: Active Protocol: Document 03/13/23 14:59 SAK (Rec: 03/13/23 16:24 [facility] [id number]) OP-PT Subjective Patient Comments Patient Comments Reports spasming of gluteal muscles marcella after PT Friday. Reports maybe combination of muscle soreness and pain. Has decreased frequency. States aquatic exercise really focused on the glutes as well. PT-OP-G Mobility & Gait Start: 01/01/23 14:05 Freq: Status: Active Protocol: Document 01/01/23 14:00 SAK (Rec: 01/06/23 11:25 [facility] [id number]) OP Gait Assessment Gait Gait Assistance Required: Independent Assistive Devices Assistive Device None Gait Deviations General Gait Pattern Antalgic,Decreased Stride Length,Decreased Feet Clearance,Lateral Trunk Lean Factors Limiting Gait Function Factors Limiting Gait Function Decreased Activity Tolerance, Difficulty Following Directions,Pain PT-OP-H Neuro Start: 01/01/23 14:05 Freq: Status: Active Protocol: Document 01/01/23 14:00 [facility] (Rec: 01/06/23 11:25 [facility] [id number]) Sensation Evaluation Gross Sensation Gross Sensation WNL PT-OP-J Posture/Palpation/Skin Start: 01/01/23 14:05 Freq: Status: Active Protocol: Document 01/01/23 14:00 [facility] (Rec: 01/06/23 11:25 [facility] [id number]) Posture Evaluation Position Standing Head/C-Spine Posture Forward Head T-Spine Posture Increased Kyphosis L-Spine Posture Increased Lordosis Shoulder Subluxation Position (L) Anterior,(R) Anterior Scapula Posture (L) Protracted,(R) Protracted Arm Posture (L) Internally Rotated,(R) Internally Rotated Pelvis Posture Anteriorly Tilted Hip Posture (L) Flexed,(R) Flexed Foot Arch (L) Low Arch,(R) Low Arch Palpation Assessment Location Two Palpation Location IT bands Palpation Findings Soft Tissue Tightness,Muscle Guarding,Tenderness One Palpation Location piriformis marcella Palpation Findings Soft Tissue Tightness, Tenderness PT-OP-K Range of Motion Start: 01/01/23 14:05 Freq: Status: Active Protocol: Document 01/01/23 14:00 [facility] (Rec: 01/06/23 11:25 [facility] [id number]) Lumbar Spine Range of Motion Lumbar Spine Active Flexion 35 Extension 10 Rotation Left 20 Rotation Right 25 Lateral Flexion Left 20 Lateral Flexion Right 25 ROM Limitations Soft Tissue Tightness,Pain Hip Goniometric Range of Motion Hip Left Flexion w/Knee Flexed 90 Straight Leg Raise 55 Extension 0 Abduction 15 Internal Rotation 154 Right Flexion w/Knee Flexed 95 Straight Leg Raise 55 Extension 0 Abduction 15 Internal Rotation 15 External Rotation 45 PT-OP-L Special Tests Start: 01/01/23 14:05 Freq: Status: Active Protocol: Document 01/01/23 14:00 [facility] (Rec: 01/06/23 11:25 [facility] [id number]) Special Tests Lumbar Spine Special Tests Straight Leg Raise Test Results + Comments muscle tightness Manual Traction Test Results + dec symptoms Passive Neck Flexion Test Results - Moise Test Results - Compression Test Results + PT-OP-M Strength Start: 01/01/23 14:05 Freq: Status: Active Protocol: Document 01/01/23 14:00 [facility] (Rec: 01/06/23 11:25 [facility] [id number]) Trunk Strength Trunk Manual Muscle Testing Flexion 3+ Fair+ Extension 3+ Fair+ Core Stabilization poor Hip Strength Hip Manual Muscle Testing marcella Flexion (L2) 4 Good Extension (S1) 4- Good- Abduction 3+ Fair+ Adduction 4- Good- External Rotation 3+ Fair+ Internal Rotation 4- Good- Knee Strength Knee Manual Muscle Testing Left Flexion (S2) 4 Good Extension (L3) 4 Good Right Flexion (S2) 5 Normal Extension (L3) 5 Normal PT-OP-Q Treatments Start: 01/01/23 14:05 Freq: Status: Active Protocol: Document 03/13/23 14:59 [facility] (Rec: 03/13/23 16:24 [facility] [id number]) Therapeutic Exercises Supine Exercises supine hooklying resisted right glute max with right AF ER Resistance yellow TB Equipment Used yellow TB, ball, 2 block Reps/Minutes 5x Comments DARIEL ex, mod cues 90-90 supported hip lift with hemibridge Reps/Minutes 5x Comments DARIEL ex, mod cues 90-90 lift Reps/Minutes 5x Comments DARIEL ex, mod cues SKTc Reps/Minutes 2x30 figure 4 Reps/Minutes 2x30 Comments DARIEL ex Prone Exercises windshield wiper Reps/Minutes 5x ea Comments hands under ASIS, cues to stop when feels movement into or away from hand Standing Exercises step-up Equipment Used 4 box Reps/Minutes 10x ea Comments emphasis on gluteal activation gluteal walk Reps/Minutes 3 min Comments cues for pt hands on gluteals to facil inc activation Manual Therapy Treatment Soft Tissue Mobilization piriformis Mobilization Type Myofascial Release,Sustained Pressure Intensity/Depth Moderate Body Position Prone Comments pillow under hips and feet Self-Care/Home Management Treatment Education Other Education updated HEP HO with gluteal walking and supine hooklying resisted right glute max with right AF ER PT-OP-R Modalities Start: 01/01/23 14:05 Freq: Status: Active Protocol: Document 03/13/23 14:59 [facility] (Rec: 03/13/23 16:24 [facility] [id number]) Electric Stimulation Electric Stimulation right gluteals Duration (Minutes) 15 Intensity 10 Target/Sweep Sweep Combined With Heat/Cold Hot Pack Comments IFES Ultrasound Therapy Treatment right gluteals Treatment Duration (minutes) 8 Patient Position Prone Frequency Setting (mHz) 1 Mode Setting Continuous Duty Cycle 100% Intensity Setting (w/cm2) 1.5 PT-OP-T Assessment and Plan Start: 01/01/23 14:05 Freq: Status: Active Protocol: Document 03/13/23 14:59 SAK (Rec: 03/13/23 16:24 [facility]AK [id number]) Physical Therapy Assessment Goals Three Impairment weakness Impairment weakness throughout hips and core with poor core stabilization Short Term Goal (STG) Patient to be instructed in HEP for purposes of core and hip strengthening and core stab STG Duration 02/01/23 Plug Paster Goal (LTG) Patient to be independent and compliant with HEP and demonstrate improvement in strength to at least 4+/5 for improved joint support and tolerance for usual activities LTG Duration 04/03/23 Four Impairment postural dysfunction and poor body mechanics Impairment Excess lumbar lordosis, lateral lean to right, increased thoracic kyphosis Short Term Goal (STG) pt to be instructed in neutral postural alignment and correct body mechanics for her usual ADL's STG Duration 02/01/23 Plug Paster Goal (LTG) Patient to demonstrate improved postural awareness and ability to self correct her posture and demonstrate good body mechanics for her usual tasks LTG Duration 04/03/23 Two Impairment Dec activity tolerance Impairment Oswestry disability index score 32% LEFS 64% Half-Way Goal (LTG) Decrease TAVO score to no greater than 15%, and improve LEFS to at least 75% as measure of improved activity tolerance and quality of life LTG Duration 04/03/23 One Impairment marcella LB, buttock and posterior thigh pain Impairment 6/10 on pain scale Plug Paster Goal (LTG) Decrease pain by at least 75% to improve patient ability to return to PLF LTG Duration 04/03/23 Assessment Summary Assessment Progressed DARIEL ex and updated HO. Trial IFES with moist heat, discussed potential for TENS at home. Physical Therapy Plan Frequency and Duration Frequency of Treatment 2x/Week Duration of treatment (weeks) 12 Plan of Care Start Date 01/01/23 Plan of Care End Date 04/03/23 Therapeutic Interventions Therapeutic Interventions Gait Training,Home Exercise Program,Manual Therapy,Patient /Caregiver Education,Self-Care /Home Management,Soft Tissue Mobilization,Taping, Therapeutic Activities, Therapeutic Exercises Modalities Cold Pack/Ice Massage,Electric Stimulation,Hot Packs, Infrared Therapy,Iontophoresis ,Traction- Mechanical, Ultrasound Next Visit Focus/Plan Next Note Type Treatment Note Next Visit Plan Continue ther ex progression, evaluate response to IFES.
--- NOTE | 2023-03-17 16:05 | PT.OTN ---
Current Diagnoses Polyneuropathy, unspecified (03/17/23) Low back pain, unspecified (03/17/23) Difficulty in walking, not elsewhere classified (03/17/23) Abnormal posture (03/17/23) Weakness (03/17/23) Physical Therapy Treatment Note PT-OP-A Visit Information Start: 01/01/23 14:05 Freq: Status: Active Protocol: Document 03/17/23 15:03 [facility] (Rec: 03/17/23 16:05 [facility] [id number]) Out-Patient Physical Therapy Visit Information Visit Information Visit Type Treatment Note Visit Start Time 15:03 Visit Stop Time 15:59 Total Visit Minutes 56 Visit Number 9 Evaluation Information Evaluation Date 01/01/23 Precautions Precautions history spinal surgery PT-OP-B Current Condition Start: 01/01/23 14:05 Freq: Status: Active Protocol: Document 03/17/23 15:03 [facility] (Rec: 03/17/23 16:05 [facility] [id number]) Current Condition History of Current Condition Onset Date 8 weeks Current Complaints marcella LB and buttock pain History of Current Condition was doing PT for left knee pain and had onset of marcella LB and buttock pain which is now more painful than knee, and has not improved no matter what she has tried; exercise, no exercise, medications. 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 Grade 1 anterolisthesis of L4 on L5 and L5 on S1 secondary to facet arthrosis. PT-OP-C Subjective Start: 01/01/23 14:05 Freq: Status: Active Protocol: Document 03/17/23 15:03 [facility] (Rec: 03/17/23 16:05 [facility] [id number]) OP-PT Subjective Patient Comments Patient Comments Reports pain relief with IFES x 24 hours. States increase in pain after doing ex f/b HS stretch, as well as doing ex without HS stretch. Exercises still usually causing pain. Agreeable to elimination diet method of adding in 1 exercise at a time to try to figure out which ones causing the problem. Patient is going to order TENS unit for home use due to positive response to IFES. PT-OP-G Mobility & Gait Start: 01/01/23 14:05 Freq: Status: Active Protocol: Document 01/01/23 14:00 [facility] (Rec: 01/06/23 11:25 [facility] [id number]) OP Gait Assessment Gait Gait Assistance Required: Independent Assistive Devices Assistive Device None Gait Deviations General Gait Pattern Antalgic,Decreased Stride Length,Decreased Feet Clearance,Lateral Trunk Lean Factors Limiting Gait Function Factors Limiting Gait Function Decreased Activity Tolerance, Difficulty Following Directions,Pain PT-OP-H Neuro Start: 01/01/23 14:05 Freq: Status: Active Protocol: Document 01/01/23 14:00 [facility] (Rec: 01/06/23 11:25 [facility] [id number]) Sensation Evaluation Gross Sensation Gross Sensation WNL PT-OP-J Posture/Palpation/Skin Start: 01/01/23 14:05 Freq: Status: Active Protocol: Document 01/01/23 14:00 [facility] (Rec: 01/06/23 11:25 [facility] [id number]) Posture Evaluation Position Standing Head/C-Spine Posture Forward Head T-Spine Posture Increased Kyphosis L-Spine Posture Increased Lordosis Shoulder Subluxation Position (L) Anterior,(R) Anterior Scapula Posture (L) Protracted,(R) Protracted Arm Posture (L) Internally Rotated,(R) Internally Rotated Pelvis Posture Anteriorly Tilted Hip Posture (L) Flexed,(R) Flexed Foot Arch (L) Low Arch,(R) Low Arch Palpation Assessment Location Two Palpation Location IT bands Palpation Findings Soft Tissue Tightness,Muscle Guarding,Tenderness One Palpation Location piriformis marcella Palpation Findings Soft Tissue Tightness, Tenderness PT-OP-K Range of Motion Start: 01/01/23 14:05 Freq: Status: Active Protocol: Document 01/01/23 14:00 [facility] (Rec: 01/06/23 11:25 [facility] [id number]) Lumbar Spine Range of Motion Lumbar Spine Active Flexion 35 Extension 10 Rotation Left 20 Rotation Right 25 Lateral Flexion Left 20 Lateral Flexion Right 25 ROM Limitations Soft Tissue Tightness,Pain Hip Goniometric Range of Motion Hip Left Flexion w/Knee Flexed 90 Straight Leg Raise 55 Extension 0 Abduction 15 Internal Rotation 154 Right Flexion w/Knee Flexed 95 Straight Leg Raise 55 Extension 0 Abduction 15 Internal Rotation 15 External Rotation 45 PT-OP-L Special Tests Start: 01/01/23 14:05 Freq: Status: Active Protocol: Document 01/01/23 14:00 [facility] (Rec: 01/06/23 11:25 [facility] [id number]) Special Tests Lumbar Spine Special Tests Straight Leg Raise Test Results + Comments muscle tightness Manual Traction Test Results + dec symptoms Passive Neck Flexion Test Results - Moise Test Results - Compression Test Results + PT-OP-M Strength Start: 01/01/23 14:05 Freq: Status: Active Protocol: Document 01/01/23 14:00 [facility] (Rec: 01/06/23 11:25 [facility] [id number]) Trunk Strength Trunk Manual Muscle Testing Flexion 3+ Fair+ Extension 3+ Fair+ Core Stabilization poor Hip Strength Hip Manual Muscle Testing marcella Flexion (L2) 4 Good Extension (S1) 4- Good- Abduction 3+ Fair+ Adduction 4- Good- External Rotation 3+ Fair+ Internal Rotation 4- Good- Knee Strength Knee Manual Muscle Testing Left Flexion (S2) 4 Good Extension (L3) 4 Good Right Flexion (S2) 5 Normal Extension (L3) 5 Normal PT-OP-Q Treatments Start: 01/01/23 14:05 Freq: Status: Active Protocol: Document 03/17/23 15:03 [facility] (Rec: 03/17/23 16:05 [facility] [id number]) Manual Therapy Treatment Soft Tissue Mobilization piriformis Mobilization Type Myofascial Release,Sustained Pressure Intensity/Depth Moderate Body Position Prone Comments pillow under hips and feet Self-Care/Home Management Treatment Education Other Education elimination diet of figuring out which exercises causing pain. PT-OP-R Modalities Start: 01/01/23 14:05 Freq: Status: Active Protocol: Document 03/17/23 15:03 [facility] (Rec: 03/17/23 16:05 [facility] [id number]) Electric Stimulation Electric Stimulation right gluteals Duration (Minutes) 15 Intensity 14 Target/Sweep Sweep Patient Position Hooklying Combined With Heat/Cold Hot Pack Comments IFES Ultrasound Therapy Treatment right gluteals Treatment Duration (minutes) 8 Patient Position Prone Frequency Setting (mHz) 1 Mode Setting Continuous Duty Cycle 100% Intensity Setting (w/cm2) 1.5 PT-OP-T Assessment and Plan Start: 01/01/23 14:05 Freq: Status: Active Protocol: Document 03/17/23 15:03 [facility] (Rec: 03/17/23 16:05 [facility] [id number]) Physical Therapy Assessment Goals Three Impairment weakness Impairment weakness throughout hips and core with poor core stabilization Short Term Goal (STG) Patient to be instructed in HEP for purposes of core and hip strengthening and core stab STG Duration 02/01/23 Fusion Juncture Grinder Goal (LTG) Patient to be independent and compliant with HEP and demonstrate improvement in strength to at least 4+/5 for improved joint support and tolerance for usual activities LTG Duration 04/03/23 Four Impairment postural dysfunction and poor body mechanics Impairment Excess lumbar lordosis, lateral lean to right, increased thoracic kyphosis Short Term Goal (STG) pt to be instructed in neutral postural alignment and correct body mechanics for her usual ADL's STG Duration 02/01/23 Fusion Juncture Grinder Goal (LTG) Patient to demonstrate improved postural awareness and ability to self correct her posture and demonstrate good body mechanics for her usual tasks LTG Duration 04/03/23 Two Impairment Dec activity tolerance Impairment Oswestry disability index score 32% LEFS 64% Fusion Juncture Grinder Goal (LTG) Decrease TAVO score to no greater than 15%, and improve LEFS to at least 75% as measure of improved activity tolerance and quality of life LTG Duration 04/03/23 One Impairment marcella LB, buttock and posterior thigh pain Impairment 6/10 on pain scale [facility] Goal (LTG) Decrease pain by at least 75% to improve patient ability to return to PLF LTG Duration 04/03/23 Assessment Summary Assessment positive response to IFES. Discussed method for figuring out which exercises inc pain with patient demonstrating good understanding. Patient to order TENS Physical Therapy Plan Frequency and Duration Frequency of Treatment 2x/Week Duration of treatment (weeks) 12 Plan of Care Start Date 01/01/23 Plan of Care End Date 04/03/23 Therapeutic Interventions Therapeutic Interventions Gait Training,Home Exercise Program,Manual Therapy,Patient /Caregiver Education,Self-Care /Home Management,Soft Tissue Mobilization,Taping, Therapeutic Activities, Therapeutic Exercises Modalities Cold Pack/Ice Massage,Electric Stimulation,Hot Packs, Infrared Therapy,Iontophoresis ,Traction- Mechanical, Ultrasound Next Visit Focus/Plan Next Note Type Treatment Note Next Visit Plan Further discussion of HEP, which exercises tolerating or not tolerating so far. Continue with manual and modalities.
--- NOTE | 2023-03-20 16:01 | PT.OTN ---
Current Diagnoses Polyneuropathy, unspecified (03/20/23) Low back pain, unspecified (03/20/23) Difficulty in walking, not elsewhere classified (03/20/23) Abnormal posture (03/20/23) Weakness (03/20/23) Physical Therapy Treatment Note PT-OP-A Visit Information Start: 01/01/23 14:05 Freq: Status: Active Protocol: Document 03/20/23 15:02 [facility] (Rec: 03/20/23 16:00 [facility] [id number]) Out-Patient Physical Therapy Visit Information Visit Information Visit Type Treatment Note Visit Start Time 15:03 Visit Stop Time 15:53 Total Visit Minutes 50 Visit Number 10 Evaluation Information Evaluation Date 01/01/23 Precautions Precautions history spinal surgery PT-OP-B Current Condition Start: 01/01/23 14:05 Freq: Status: Active Protocol: Document 03/20/23 15:02 [facility] (Rec: 03/20/23 16:00 [facility] [id number]) Current Condition History of Current Condition Onset Date 8 weeks Current Complaints marcella LB and buttock pain History of Current Condition was doing PT for left knee pain and had onset of marcella LB and buttock pain which is now more painful than knee, and has not improved no matter what she has tried; exercise, no exercise, medications. 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 Grade 1 anterolisthesis of L4 on L5 and L5 on S1 secondary to facet arthrosis. PT-OP-C Subjective Start: 01/01/23 14:05 Freq: Status: Active Protocol: Document 03/20/23 15:02 [facility] (Rec: 03/20/23 16:00 [facility] [id number]) OP-PT Subjective Patient Comments Patient Comments Patient ordering TENS/EMS today for home use after approval from physician. Plans to bring next session for PT to educate in use as well as HEP. Requesting discharge after next visit. PT-OP-G Mobility & Gait Start: 01/01/23 14:05 Freq: Status: Active Protocol: Document 01/01/23 14:00 [facility] (Rec: 01/06/23 11:25 [facility] [id number]) OP Gait Assessment Gait Gait Assistance Required: Independent Assistive Devices Assistive Device None Gait Deviations General Gait Pattern Antalgic,Decreased Stride Length,Decreased Feet Clearance,Lateral Trunk Lean Factors Limiting Gait Function Factors Limiting Gait Function Decreased Activity Tolerance, Difficulty Following Directions,Pain PT-OP-H Neuro Start: 01/01/23 14:05 Freq: Status: Active Protocol: Document 01/01/23 14:00 [facility] (Rec: 01/06/23 11:25 [facility] [id number]) Sensation Evaluation Gross Sensation Gross Sensation WNL PT-OP-J Posture/Palpation/Skin Start: 01/01/23 14:05 Freq: Status: Active Protocol: Document 01/01/23 14:00 [facility] (Rec: 01/06/23 11:25 [facility] [id number]) Posture Evaluation Position Standing Head/C-Spine Posture Forward Head T-Spine Posture Increased Kyphosis L-Spine Posture Increased Lordosis Shoulder Subluxation Position (L) Anterior,(R) Anterior Scapula Posture (L) Protracted,(R) Protracted Arm Posture (L) Internally Rotated,(R) Internally Rotated Pelvis Posture Anteriorly Tilted Hip Posture (L) Flexed,(R) Flexed Foot Arch (L) Low Arch,(R) Low Arch Palpation Assessment Location Two Palpation Location IT bands Palpation Findings Soft Tissue Tightness,Muscle Guarding,Tenderness One Palpation Location piriformis marcella Palpation Findings Soft Tissue Tightness, Tenderness PT-OP-K Range of Motion Start: 01/01/23 14:05 Freq: Status: Active Protocol: Document 01/01/23 14:00 [facility] (Rec: 01/06/23 11:25 [facility] [id number]) Lumbar Spine Range of Motion Lumbar Spine Active Flexion 35 Extension 10 Rotation Left 20 Rotation Right 25 Lateral Flexion Left 20 Lateral Flexion Right 25 ROM Limitations Soft Tissue Tightness,Pain Hip Goniometric Range of Motion Hip Left Flexion w/Knee Flexed 90 Straight Leg Raise 55 Extension 0 Abduction 15 Internal Rotation 154 Right Flexion w/Knee Flexed 95 Straight Leg Raise 55 Extension 0 Abduction 15 Internal Rotation 15 External Rotation 45 PT-OP-L Special Tests Start: 01/01/23 14:05 Freq: Status: Active Protocol: Document 01/01/23 14:00 [facility] (Rec: 01/06/23 11:25 [facility] [id number]) Special Tests Lumbar Spine Special Tests Straight Leg Raise Test Results + Comments muscle tightness Manual Traction Test Results + dec symptoms Passive Neck Flexion Test Results - Moise Test Results - Compression Test Results + PT-OP-M Strength Start: 01/01/23 14:05 Freq: Status: Active Protocol: Document 01/01/23 14:00 [facility] (Rec: 01/06/23 11:25 [facility] [id number]) Trunk Strength Trunk Manual Muscle Testing Flexion 3+ Fair+ Extension 3+ Fair+ Core Stabilization poor Hip Strength Hip Manual Muscle Testing marcella Flexion (L2) 4 Good Extension (S1) 4- Good- Abduction 3+ Fair+ Adduction 4- Good- External Rotation 3+ Fair+ Internal Rotation 4- Good- Knee Strength Knee Manual Muscle Testing Left Flexion (S2) 4 Good Extension (L3) 4 Good Right Flexion (S2) 5 Normal Extension (L3) 5 Normal PT-OP-Q Treatments Start: 01/01/23 14:05 Freq: Status: Active Protocol: Document 03/20/23 15:02 [facility] (Rec: 03/20/23 16:00 [facility] [id number]) Manual Therapy Treatment Soft Tissue Mobilization piriformis Mobilization Type Myofascial Release,Sustained Pressure Intensity/Depth Moderate Body Position Prone Comments pillow under hips and feet Self-Care/Home Management Treatment Education Patient Education Home Exercise Program,Posture PT-OP-R Modalities Start: 01/01/23 14:05 Freq: Status: Active Protocol: Document 03/20/23 15:02 [facility] (Rec: 03/20/23 16:00 [facility] [id number]) Electric Stimulation Electric Stimulation right gluteals Duration (Minutes) 15 Intensity 14 Target/Sweep Sweep Patient Position Hooklying Combined With Heat/Cold Hot Pack Comments IFES Ultrasound Therapy Treatment right gluteals Treatment Duration (minutes) 8 Patient Position Prone Frequency Setting (mHz) 1 Mode Setting Continuous Duty Cycle 100% Intensity Setting (w/cm2) 1.5 PT-OP-T Assessment and Plan Start: 01/01/23 14:05 Freq: Status: Active Protocol: Document 03/20/23 15:02 [facility] (Rec: 03/20/23 16:00 [facility] [id number]) Physical Therapy Assessment Goals Three Impairment weakness Impairment weakness throughout hips and core with poor core stabilization Short Term Goal (STG) Patient to be instructed in HEP for purposes of core and hip strengthening and core stab STG Duration 02/01/23 Shelter Goal (LTG) Patient to be independent and compliant with HEP and demonstrate improvement in strength to at least 4+/5 for improved joint support and tolerance for usual activities LTG Duration 04/03/23 Four Impairment postural dysfunction and poor body mechanics Impairment Excess lumbar lordosis, lateral lean to right, increased thoracic kyphosis Short Term Goal (STG) pt to be instructed in neutral postural alignment and correct body mechanics for her usual ADL's STG Duration 02/01/23 Executive Officer Goal (LTG) Patient to demonstrate improved postural awareness and ability to self correct her posture and demonstrate good body mechanics for her usual tasks LTG Duration 04/03/23 Two Impairment Dec activity tolerance Impairment Oswestry disability index score 32% LEFS 64% Shelter Goal (LTG) Decrease TAVO score to no greater than 15%, and improve LEFS to at least 75% as measure of improved activity tolerance and quality of life LTG Duration 04/03/23 One Impairment marcella LB, buttock and posterior thigh pain Impairment 6/10 on pain scale Executive Officer Goal (LTG) Decrease pain by at least 75% to improve patient ability to return to PLF LTG Duration 04/03/23 Assessment Summary Assessment Patient requesting discharge after next visit with instruction in use of TENS unit for home and review HEP. Good compliance to aquatic exercise. Feel it will be appropriate to discharge after next PT visit. Physical Therapy Plan Frequency and Duration Frequency of Treatment 2x/Week Duration of treatment (weeks) 12 Plan of Care Start Date 01/01/23 Plan of Care End Date 04/03/23 Therapeutic Interventions Therapeutic Interventions Gait Training,Home Exercise Program,Manual Therapy,Patient /Caregiver Education,Self-Care /Home Management,Soft Tissue Mobilization,Taping, Therapeutic Activities, Therapeutic Exercises Modalities Cold Pack/Ice Massage,Electric Stimulation,Hot Packs, Infrared Therapy,Iontophoresis ,Traction- Mechanical, Ultrasound Next Visit Focus/Plan Next Note Type Treatment Note Next Visit Plan Further discussion of HEP, which exercises tolerating or not tolerating so far. Continue with manual and modalities.
--- NOTE | 2023-03-25 13:58 | PT.OTN ---
Current Diagnoses Polyneuropathy, unspecified (03/24/23) Low back pain, unspecified (03/24/23) Difficulty in walking, not elsewhere classified (03/24/23) Abnormal posture (03/24/23) Weakness (03/24/23) Physical Therapy Treatment Note PT-OP-A Visit Information Start: 01/01/23 14:05 Freq: Status: Active Protocol: Document 03/24/23 15:01 [facility] (Rec: 03/24/23 15:47 [facility] [id number]) Out-Patient Physical Therapy Visit Information Visit Information Visit Type Treatment Note Visit Start Time 15:01 Visit Stop Time 16:00 Total Visit Minutes 59 Visit Number 11 Evaluation Information Evaluation Date 01/01/23 Precautions Precautions history spinal surgery PT-OP-B Current Condition Start: 01/01/23 14:05 Freq: Status: Active Protocol: Document 03/24/23 15:01 [facility] (Rec: 03/24/23 15:47 [facility] [id number]) Current Condition History of Current Condition Onset Date 8 weeks Current Complaints marcella LB and buttock pain History of Current Condition was doing PT for left knee pain and had onset of marcella LB and buttock pain which is now more painful than knee, and has not improved no matter what she has tried; exercise, no exercise, medications. 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 Grade 1 anterolisthesis of L4 on L5 and L5 on S1 secondary to facet arthrosis. PT-OP-C Subjective Start: 01/01/23 14:05 Freq: Status: Active Protocol: Document 03/24/23 15:01 [facility] (Rec: 03/24/23 15:47 [facility] [id number]) OP-PT Subjective Patient Comments Patient Comments Got e-stim machine but had shock from it, sent back as defective. Going to wait to use daughter's when she comes Thanksgiving. Brought all exercise handouts to review. Not doing too bad today. PT-OP-G Mobility & Gait Start: 01/01/23 14:05 Freq: Status: Active Protocol: Document 01/01/23 14:00 [facility] (Rec: 01/06/23 11:25 [facility] [id number]) OP Gait Assessment Gait Gait Assistance Required: Independent Assistive Devices Assistive Device None Gait Deviations General Gait Pattern Antalgic,Decreased Stride Length,Decreased Feet Clearance,Lateral Trunk Lean Factors Limiting Gait Function Factors Limiting Gait Function Decreased Activity Tolerance, Difficulty Following Directions,Pain PT-OP-H Neuro Start: 01/01/23 14:05 Freq: Status: Active Protocol: Document 01/01/23 14:00 [facility] (Rec: 01/06/23 11:25 [facility] [id number]) Sensation Evaluation Gross Sensation Gross Sensation WNL PT-OP-J Posture/Palpation/Skin Start: 01/01/23 14:05 Freq: Status: Active Protocol: Document 01/01/23 14:00 [facility] (Rec: 01/06/23 11:25 [facility] [id number]) Posture Evaluation Position Standing Head/C-Spine Posture Forward Head T-Spine Posture Increased Kyphosis L-Spine Posture Increased Lordosis Shoulder Subluxation Position (L) Anterior,(R) Anterior Scapula Posture (L) Protracted,(R) Protracted Arm Posture (L) Internally Rotated,(R) Internally Rotated Pelvis Posture Anteriorly Tilted Hip Posture (L) Flexed,(R) Flexed Foot Arch (L) Low Arch,(R) Low Arch Palpation Assessment Location Two Palpation Location IT bands Palpation Findings Soft Tissue Tightness,Muscle Guarding,Tenderness One Palpation Location piriformis marcella Palpation Findings Soft Tissue Tightness, Tenderness PT-OP-K Range of Motion Start: 01/01/23 14:05 Freq: Status: Active Protocol: Document 01/01/23 14:00 [facility] (Rec: 01/06/23 11:25 [facility] [id number]) Lumbar Spine Range of Motion Lumbar Spine Active Flexion 35 Extension 10 Rotation Left 20 Rotation Right 25 Lateral Flexion Left 20 Lateral Flexion Right 25 ROM Limitations Soft Tissue Tightness,Pain Hip Goniometric Range of Motion Hip Left Flexion w/Knee Flexed 90 Straight Leg Raise 55 Extension 0 Abduction 15 Internal Rotation 154 Right Flexion w/Knee Flexed 95 Straight Leg Raise 55 Extension 0 Abduction 15 Internal Rotation 15 External Rotation 45 PT-OP-L Special Tests Start: 01/01/23 14:05 Freq: Status: Active Protocol: Document 01/01/23 14:00 [facility] (Rec: 01/06/23 11:25 [facility] [id number]) Special Tests Lumbar Spine Special Tests Straight Leg Raise Test Results + Comments muscle tightness Manual Traction Test Results + dec symptoms Passive Neck Flexion Test Results - Moise Test Results - Compression Test Results + PT-OP-M Strength Start: 01/01/23 14:05 Freq: Status: Active Protocol: Document 01/01/23 14:00 [facility] (Rec: 01/06/23 11:25 [facility] [id number]) Trunk Strength Trunk Manual Muscle Testing Flexion 3+ Fair+ Extension 3+ Fair+ Core Stabilization poor Hip Strength Hip Manual Muscle Testing marcella Flexion (L2) 4 Good Extension (S1) 4- Good- Abduction 3+ Fair+ Adduction 4- Good- External Rotation 3+ Fair+ Internal Rotation 4- Good- Knee Strength Knee Manual Muscle Testing Left Flexion (S2) 4 Good Extension (L3) 4 Good Right Flexion (S2) 5 Normal Extension (L3) 5 Normal PT-OP-Q Treatments Start: 01/01/23 14:05 Freq: Status: Active Protocol: Document 03/20/23 15:02 [facility] (Rec: 03/20/23 16:00 [facility] [id number]) Manual Therapy Treatment Soft Tissue Mobilization piriformis Mobilization Type Myofascial Release,Sustained Pressure Intensity/Depth Moderate Body Position Prone Comments pillow under hips and feet Self-Care/Home Management Treatment Education Patient Education Home Exercise Program,Posture PT-OP-R Modalities Start: 01/01/23 14:05 Freq: Status: Active Protocol: Document 03/24/23 15:01 [facility] (Rec: 03/24/23 15:47 [facility] [id number]) Electric Stimulation Electric Stimulation right gluteals Duration (Minutes) 15 Intensity 14 Target/Sweep Sweep Patient Position Hooklying Combined With Heat/Cold Hot Pack Comments IFES Ultrasound Therapy Treatment right gluteals Treatment Duration (minutes) 8 Patient Position Prone Frequency Setting (mHz) 1 Mode Setting Continuous Duty Cycle 100% Intensity Setting (w/cm2) 1.5 PT-OP-T Assessment and Plan Start: 01/01/23 14:05 Freq: Status: Active Protocol: Document 03/24/23 15:01 [facility] (Rec: 03/24/23 15:47 [facility] [id number]) Physical Therapy Assessment Goals Three Impairment weakness Impairment weakness throughout hips and core with poor core stabilization Short Term Goal (STG) Patient to be instructed in HEP for purposes of core and hip strengthening and core stab STG Duration goal met Failure Analysis Technician Goal (LTG) Patient to be independent and compliant with HEP and demonstrate improvement in strength to at least 4+/5 for improved joint support and tolerance for usual activities LTG Duration goal met except hip ab,ext 4/5 Four Impairment postural dysfunction and poor body mechanics Impairment Excess lumbar lordosis, lateral lean to right, increased thoracic kyphosis Short Term Goal (STG) pt to be instructed in neutral postural alignment and correct body mechanics for her usual ADL's STG Duration goal met Failure Analysis Technician Goal (LTG) Patient to demonstrate improved postural awareness and ability to self correct her posture and demonstrate good body mechanics for her usual tasks LTG Duration goal met Two Impairment Dec activity tolerance Impairment Oswestry disability index score 32% LEFS 64% Jail Goal (LTG) Decrease TAVO score to no greater than 15%, and improve LEFS to at least 75% as measure of improved activity tolerance and quality of life 03/24/23: goal progress LTG Duration 04/03/23 One Impairment marcella LB, buttock and posterior thigh pain Impairment 6/10 on pain scale Jail Goal (LTG) Decrease pain by at least 75% to improve patient ability to return to [facility] 03/24/23: goal progress LTG Duration 04/03/23 Assessment Summary Assessment Patient has mostly met goals. Independent with HEP, requesting discharge at this time. Updated written HO for HEP. Decreased palpable tightness in piriformis. Is attending aquatic exercise class regularly with good tolerance, feels most helpful. Physical Therapy Plan Discharge Physical Therapy Discharge Reasons Patient Request
== END 2023-04-01 09:05 | disposition home or self-care (01) ==
LOC: PHYS 15:00
PROVIDERS: Family Provider Internal Medicine; PCP Family Medicine; Referring Provider Physician Assistant; Visit Provider Physician Assistant
DX: M54.50 Low back pain, unspecified (principal); G62.9 Polyneuropathy, unspecified; R29.3 Abnormal posture; R53.1 Weakness; R26.2 Difficulty in walking, not elsewhere classified
CPT/HCPCS: 97012; 97014; 97035; 97110; 97140; 97162; 97535; G0283

== ENCOUNTER 2023-04-02 07:33 | Day surgery (SDC) | payer MEDICARE, SELFPAY ==
--- NOTE | 2023-04-02 | PATH_ITS ---
[facility] Accession Number: [id number] No. of containers..01 Tissue . 01 Material submitted: . colon - RANDOM COLON . 01 Diagnosis: Random Colon, Biopsy: Colonic mucosa with no diagnostic abnormality. Negative for active, chronic, and microscopic colitis. Negative for dysplasia and malignancy. . MRV 04/14/2023 1457 Local . 01 Electronically signed: . Ebony Fong MD, Pathologist NPI- [id number] . 01 Gross description: . RANDOM COLON: Received in formalin are 4 fragment(s) of elliott, soft tissue measuring 0.1 x 0.1 x 0.1 cm to 0.5 x 0.3 x 0.2 cm submitted entirely in 1 cassette(s) /MORGAN 04/03/20232228 Local . 01 Pathologist provided ICD-10: R19.7 . 01 CPT . 952878 Specimen Comment: A courtesy copy of this report has been sent to [phone] Performed at: 01 [facility] [address] [place] [address], [place], [place] [id number] MD Amos Bangura MD Phone: [phone]
[2023-04-02 07:50] VITALS: BP 141/86; PULSE 79; RESP 16; TEMP 36.9; O2SAT 96; BMI 28.2
[2023-04-02] MEDS: LACTATED RINGERS 1,000 ML 150 ML IV (08:11)
--- NOTE | 2023-04-02 08:27 | P.HP_ITS ---
History of Present Illness History of Present Illness Date Patient Seen: 04/02/23 Time Patient Seen: 08:27 Chief complaint: Colonoscopy Narrative: Last scope for screening 2019, brother with polyps. Diarrhea/change in bowel habits. [facility] Medical History Prediabetes Stenosis of carotid artery Hx of breast cancer Insomnia (~09/22/21) Osteoarthritis (~2004) Depression Anxiety (~1994) Osteopenia (~2007) Plantar warts (~1954) Chicken pox (~1951) Surgical History Anesthesia Status post cholecystectomy (~2003) Status post hysterectomy (~1991) Family History Father High cholesterol Mother Emphysema lung Social History marital status: number of children: 2 household members: none lives independently: Yes caregiver/support person: No housing: house Smoking Status: Never smoker second hand exposure: No alcohol intake: current substance use type: does not use Meds Home Medications and Allergies Home Medications Medication Instructions Recorded Confirmed Type calcium citrate 250 mg PO BID 02/07/20 04/02/23 History aspirin 81 mg tablet,delayed 81 mg PO DAILY 07/19/20 04/02/23 History release (Adult Aspirin Regimen) atorvastatin 10 mg tablet See Rx Instructions .Route 07/24/22 04/02/23 Rx .COMPLEX #90 tabs omeprazole 20 mg capsule,delayed 20 mg PO DAILY #90 caps 03/03/23 04/02/23 Rx release levothyroxine 75 mcg tablet 75 mcg PO DAILY #90 tabs 03/11/23 04/02/23 Rx diltiazem HCl 180 mg 180 mg PO DAILY 04/02/23 04/02/23 History capsule,extended release 24 hr Allergies Allergy/AdvReac Type Severity Reaction Status Date / Time naproxen [From [facility]] Allergy Mild syncope Verified 02/26/23 08:27 episodes Review of Systems Review of Systems ROS: Yes All systems reviewed with the patient and are negative except as otherwise documented Exam Vital Signs (past 8 hours): - 04/02/23 07:50 Temperature 98.5 F Pulse Rate 79 Respiratory Rate 16 Blood Pressure 141/86 H Pulse Oximetry 96 Oxygen Delivery Method Room Air Oxygen Delivery Method Room Air Const General: cooperative, healthy appearing and comfortable Nutritional Appearance: average body habitus HENCO Head: normal to inspection, normocephalic and atraumatic Eyes General: appearance normal, both eyes and all related structures Sclera: sclerae normal Neck Neck: no meningeal signs and trachea midline Resp Effort & Inspection: normal respiratory effort and able to speak in complete sentences Cardio Rate: regular rate Rhythm: regular rhythm GI Inspection: normal to inspection Palpation: soft Skin General: turgor normal and atrophy Neuro General: patient alert, patient awake and patient oriented x3 Cognition: normal cognition Psych Appearance: grossly normal Mental Status: mental status grossly normal Judgment: judgment good Assessment & Plan Assessment & Plan narrative: Change in bowel habits. Plan: colonoscopy Time Spent With Patient Time with patient: less than 30 minutes
--- NOTE | 2023-04-02 09:04 | P.OP.COLON_ITS ---
Operative Date/Time/Diagnoses Date of procedure: 04/02/23 Time of procedure: 09:06 Pre-op diagnosis: Change in bowel habits Post-op diagnosis: same Procedure & Clinicians Study performed: EGD with mucosal biopsies with cold forceps Same procedure as scheduled: Yes Indications: Change in bowel habits Surgeon: Sisi Graham Procedure Notes Procedure in detail: Preop diagnosis: Change in bowel habits Postop diagnosis: Same Operative procedure: Diagnostic colonoscopy with random mucosal biopsies using cold forceps under anesthetic Surgeon: Jessica Graham MD Findings: No significant diverticulosis, no polyps. Enhanced texture of the colon but no overt abnormalities. Procedure: Patient placed in a lateral position. Rectal exam performed showing normal tone no masses. Colonoscope inserted into the rectum and advanced to il eocecal valve with minimal difficulty. Insufflation extraction scope and the above findings. Impression: No polyps identified. A random mucosal biopsies taken for the diagnosis of diarrhea. Plan: Follow up with PCP for pathology results. Recommend 10 year recall for screening colonoscopy. Specimen(s): other Impression: Random mucosal biopsies of the colon Post-procedure Recommendations: Colonoscopy in 10 years Follow up: as needed Disposition: PACU
[2023-04-02 09:05] VITALS: BP 134/67; PULSE 58; RESP 14; TEMP 36; O2SAT 99
[2023-04-02 09:12] VITALS: BP 126/70; PULSE 58; RESP 16; O2SAT 98
[2023-04-02 09:16] VITALS: BP 117/75; PULSE 56; RESP 13; TEMP 36.4; O2SAT 100
== END 2023-04-02 09:33 | disposition home or self-care (01) ==
PROVIDERS: Family Provider Internal Medicine; PCP Family Medicine; Referring Provider Surgery; Visit Provider Surgery
PROC: 0DJD8ZZ Inspection of Lower Intestinal Tract, Via Natural or Artificial Opening Endoscopic (ICD-10-PCS; CPT 45378; principal; 2023-04-02 08:45)
DX: R19.4 Change in bowel habit (principal)
CPT/HCPCS: 45380; J2704

== ENCOUNTER → 2023-04-15 07:56 | Outpatient (CLI) | payer MEDICARE, SELFPAY ==
[2023-04-15 10:13] LABS: HEMOLYSIS < 15 (0-50); Iron 91 ug/dL (37-170)
[2023-04-15 10:25] LABS: Percent Iron Saturation 35 % (15-50); Total Iron Binding Capacity 257 ug/dL (265-497); Transferrin 223 mg/dL (206-381)
[2023-04-15 10:41] LABS: Ferritin 74 ng/mL (11-264); Thyroid Stimulating Hormone 2.08 uIU/mL (0.47-4.68)
== END ==
PROVIDERS: Family Provider Internal Medicine; PCP Family Medicine; Referring Provider Nurse Practitioner; Visit Provider Nurse Practitioner
DX: R25.8 Other abnormal involuntary movements (principal); E03.9 Hypothyroidism, unspecified; E83.10 Disorder of iron metabolism, unspecified
CPT/HCPCS: 82728; 83540; 83550; 84443

== ENCOUNTER → 2023-09-29 10:15 | Outpatient (CLI) | payer MEDICARE, SELFPAY ==
[2023-09-29 11:38] LABS: Appearance Urine UA CLOUDY; Bilirubin Urine UA NEGATIVE (NEGATIVE); Color Urine UA YELLOW; Glucose Urine UA NEGATIVE (Negative); Ketones Urine UA TRACE (NEGATIVE); Leukocyte Esterase Urine UA 3+ (NEGATIVE); Nitrite Urine UA POSITIVE (Negative); Occult Blood Urine UA 3+ (Negative); Protein Urine UA 2+ (Negative); Specific Gravity Urine UA >=1.030 (1.000-1.035)
[2023-09-29 11:39] LABS: Urine Volume 10mL (spun); pH Urine UA 5.5 (4.5-8.0)
[2023-09-29 11:54] LABS: Bacteria Urine Many (>30); Culture Indicated Urine Specimen Cultured; RBC Urine >100/HPF (0-5/HPF); Squamous Epithelial Cell Urine 0-1 /HPF (0-5/HPF); WBC Urine >100/HPF (0-5/HPF)
== END ==
PROVIDERS: Family Provider Internal Medicine; PCP Family Medicine; Referring Provider Family Medicine; Visit Provider Family Medicine
DX: R30.0 Dysuria (principal)
CPT/HCPCS: 81001; 87077; 87086; 87186

== ENCOUNTER → 2023-10-08 10:05 | Outpatient (CLI) | payer MEDICARE, SELFPAY ==
[2023-10-08 10:46] LABS: Appearance Urine UA CLOUDY; Bilirubin Urine UA NEGATIVE (NEGATIVE); Color Urine UA YELLOW; Glucose Urine UA NEGATIVE (Negative); Ketones Urine UA NEGATIVE (NEGATIVE); Leukocyte Esterase Urine UA 2+ (NEGATIVE); Nitrite Urine UA POSITIVE (Negative); Occult Blood Urine UA 2+ (Negative); Protein Urine UA 1+ (Negative); Specific Gravity Urine UA 1.025 (1.000-1.035); Urobilinogen Urine UA 0.2 E.U./dL (0.2)
[2023-10-08 10:55] LABS: Culture Indicated Urine Specimen Cultured; RBC Urine 1-5/HPF (0-5/HPF); Urine Volume 10mL (spun); WBC Urine 30-100/HPF (0-5/HPF)
[2023-10-08 10:56] LABS: Bacteria Urine Many (>30); Squamous Epithelial Cell Urine 1-5 /HPF (0-5/HPF)
== END ==
PROVIDERS: Family Provider Internal Medicine; PCP Family Medicine; Referring Provider Family Medicine; Visit Provider Family Medicine
DX: R30.0 Dysuria (principal)
CPT/HCPCS: 81001; 87077; 87086; 87186

== ENCOUNTER → 2023-10-20 08:44 | Outpatient (CLI) | payer MEDICARE, SELFPAY ==
[2023-10-20 10:26] LABS: Appearance Urine UA CLEAR; Bilirubin Urine UA NEGATIVE (NEGATIVE); Color Urine UA YELLOW; Glucose Urine UA NEGATIVE (Negative); Ketones Urine UA NEGATIVE (NEGATIVE); Leukocyte Esterase Urine UA NEGATIVE (NEGATIVE); Nitrite Urine UA NEGATIVE (Negative); Occult Blood Urine UA NEGATIVE (Negative); Protein Urine UA NEGATIVE (Negative); Specific Gravity Urine UA 1.025 (1.000-1.035); Urobilinogen Urine UA 0.2 E.U./dL (0.2)
[2023-10-20 10:32] LABS: Bacteria Urine None Seen; RBC Urine None Seen (0-5/HPF); Squamous Epithelial Cell Urine None Seen (0-5/HPF); Urine Volume 10mL (spun); WBC Urine None Seen (0-5/HPF)
== END ==
PROVIDERS: Family Provider Internal Medicine; PCP Family Medicine; Referring Provider Family Medicine; Visit Provider Family Medicine
DX: N39.0 Urinary tract infection, site not specified (principal)
CPT/HCPCS: 81001; 87086

== ENCOUNTER → 2023-10-21 15:47 | Outpatient (CLI) | payer MEDICARE, SELFPAY ==
--- NOTE | 2023-10-21 15:48 | DI.RAD.S_ITS ---
PROCEDURE: XR SACRUM COCCYX MIN 2V INDICATIONS: Coccyx pain TECHNIQUE: 3 views of the sacrum and coccyx acquired. COMPARISON: None. FINDINGS: Bones: No fractures or dislocations. No suspicious bony lesions. Soft tissues: Visualized bowel gas pattern is normal. No suspicious soft tissue densities. IMPRESSION: No visualized acute fracture or dislocation. However, if clinical concern and/or pain persist, short interval imaging followup in 7-10 days is recommended, as occult injury cannot be definitively excluded. Dictated by: Jade Martinez M.D. on 10/21/2023 at 16:55 Approved by: Jade Martinez M.D. on 10/21/2023 at 16:55
== END ==
PROVIDERS: Family Provider Internal Medicine; PCP Family Medicine; Referring Provider Anesthesiology; Visit Provider Anesthesiology
DX: M53.3 Sacrococcygeal disorders, not elsewhere classified (principal); M47.26 Other spondylosis with radiculopathy, lumbar region; M54.9 Dorsalgia, unspecified
CPT/HCPCS: 72220; 99214

== ENCOUNTER → 2024-02-19 08:55 | Outpatient (CLI) | payer MEDICARE, SELFPAY ==
[2024-02-19 10:35] LABS: Alanine Aminotransferase 32 IU/L (<35); Albumin 4.2 g/dL (3.5-5.0); Albumin Globulin Ratio 1.6 (1.0-2.8); Alkaline Phosphatase 57 U/L (38-126); Aspartate Aminotransferase 25 IU/L (14-36); BUN Creatinine Ratio 30.2 (6-22); Bilirubin Total 0.7 mg/dL (0.2-1.3); Blood Urea Nitrogen 26 mg/dL (7-17); Calcium 9.3 mg/dL (8.4-10.2); Carbon Dioxide 25 mmol/L (22-32); Chloride 104 mmol/L (98-107); Cholesterol 175 mg/dL (140-199); Estimated Glomerular Filt Rate > 60 mL/min (>60); Globulin 2.7 g/dL (1.7-4.1); Glucose 106 mg/dL (80-110); HDL Cholesterol 104 mg/dL (40-60); HEMOLYSIS < 15 (0-50); LDL Cholesterol Calculated 55 mg/dL (<100); Potassium 4.5 mmol/L (3.4-5.1); Sodium 135 mmol/L (137-145); Total Protein 6.9 g/dL (6.3-8.2); Triglycerides 78 mg/dL (35-150)
[2024-02-19 11:04] LABS: Thyroid Stimulating Hormone 1.81 uIU/mL (0.47-4.68)
[2024-02-19 12:12] LABS: Creatinine Urine Random 100.49 mg/dL
[2024-02-19 12:16] LABS: Microalbumin Urine Random 0.8 mg/dL (0-1.6)
== END ==
PROVIDERS: Family Provider Internal Medicine; PCP Family Medicine; Referring Provider Family Medicine; Visit Provider Family Medicine
DX: R73.03 Prediabetes (principal); E03.9 Hypothyroidism, unspecified; I10 Essential (primary) hypertension
CPT/HCPCS: 36415; 80053; 80061; 82043; 82570; 83036; 84443

== ENCOUNTER → 2024-03-04 12:45 | Outpatient (CLI) | payer MEDICARE, SELFPAY ==
--- NOTE | 2024-03-04 12:46 | DI.MRI.S_ITS ---
PROCEDURE: MR CERVICAL SPINE WO CON INDICATIONS: CERVICAL STENOSIS TECHNIQUE: Noncontrast sagittal T1 spin echo and T2 fast spin echo, sagittal STIR, foraminal oblique sagittal T2 fast spin echo, and axial gradient echo or T2 fast spin echo through the cervical spine. COMPARISON: None. FINDINGS: Image quality: Excellent. Alignment and Curvature: Straightening of the normal cervical lordosis. Bone Marrow: Mild degenerative endplate changes, most pronounced at C6-C7. Marrow demonstrates normal overall signal. Spinal Cord: Visualized spinal cord has normal size and signal. No cerebellar tonsillar herniation. Paraspinous Soft Tissues: No paravertebral masses. Prevertebral soft tissues are normal in thickness. C2-C3: Disc desiccation and small central posterior disc osteophyte complex. No central canal stenosis. Facet and uncovertebral arthropathy. [id number] left and no right neural foraminal stenosis. C3-C4: Disc desiccation and mild posterior disc osteophyte complex. No central canal stenosis. Facet and uncovertebral arthropathy. Moderate left and mild right neural foraminal stenosis. C4-C5: Disc desiccation and mild posterior disc osteophyte complex. Mild central canal stenosis. Facet and uncovertebral arthropathy. Moderate bilateral neural foraminal stenosis. C5-C6: Disc desiccation and posterior disc osteophyte complex. Mild central canal stenosis. Facet and uncovertebral arthropathy moderate bilateral neural foraminal stenosis. C6-C7: Disc desiccation and moderate disc height loss. Posterior disc osteophyte complex. Moderate central canal stenosis. Facet and uncovertebral arthropathy. Severe right and moderate left neural foraminal stenosis. C7-T1: Disc desiccation and mild posterior disc osteophyte complex. No central canal stenosis. No significant neural foraminal stenosis. IMPRESSION: 1. Multilevel degenerative changes of the cervical spine as described above. 2. Moderate central canal stenosis at C6-C7. Multilevel mild central canal stenosis at other levels. 3. Severe right neural foraminal stenosis at C6-C7. Multilevel mild and moderate neural foraminal stenosis at other levels. Dictated by: Javid Serna M.D. on 03/04/2024 at 16:55 Approved by: Javid Serna M.D. on 03/04/2024 at 16:59
== END ==
PROVIDERS: Family Provider Internal Medicine; PCP Family Medicine; Referring Provider Anesthesiology Pain Medicine; Visit Provider Anesthesiology Pain Medicine
DX: M47.812 Spondylosis without myelopathy or radiculopathy, cervical region (principal); M48.02 Spinal stenosis, cervical region
CPT/HCPCS: 72141

== ENCOUNTER → 2024-05-03 09:57 | Outpatient (CLI) | payer MEDICARE, SELFPAY ==
[2024-05-04 12:40] LABS: Interpretation Negative (Negative)
== END ==
PROVIDERS: Family Provider Internal Medicine; PCP Family Medicine; Referring Provider Family Medicine; Visit Provider Family Medicine
DX: R10.13 Epigastric pain (principal)
CPT/HCPCS: 36415; 83013

== ENCOUNTER → 2024-06-16 09:09 | Outpatient (CLI) | payer MEDICARE, SELFPAY ==
--- NOTE | 2024-06-16 09:10 | DI.US.S_ITS ---
ULTRASOUND OF RIGHT AXILLA: 06/16/2024 CLINICAL: Focal right axillary pain. Comparison is made to exams dated: 06/16/2024 mammogram - [facility], 03/24/2024 mammogram, 09/24/2023 mammogram, 03/19/2023 ultrasound, 03/19/2023 mammogram - [facility], and 06/16/20[address] - [facility]. Color flow and real-time ultrasound of the right axilla were performed. Camacho scale images of the real-time examination were reviewed. There is an oval post-surgical scar in the right axillary tail. This oval post-surgical scar is hypoechoic with posterior acoustic enhancement. This correlates to the reported pain. Color flow imaging demonstrates that there is vascularity present. There is an adjacent normal appearing lymph node with preserved fatty hilum and no cortical thickening. IMPRESSION: PROBABLY BENIGN Patient describes pain and right axillary swelling. History of lymph node dissection. No convincing enlarged lymph nodes. Suspected post-surgical scar in the region of pain is probably benign. A follow-up right axillary ultrasound in 6 months is recommended to demonstrate stability. Exam findings were discussed with the patient. Patient is advised to monitor for significant change. Clinical follow-up as needed. If concerned for occult recurrence, breast MRI or CT chest should be considered. This exam was interpreted at Station ID: [id number]. Electronically Signed By: Peña Kim M.D. [facility] [place]/:06/16/2024 12:11:17 letter sent: Followup Recommended ACR BI-RADS Category 3: Probably Benign
--- NOTE | 2024-06-16 09:10 | DI.US.S_ITS ---
LIMITED ULTRASOUND OF RIGHT BREAST: 06/16/2024 CLINICAL: Patient returns today to evaluate a focal asymmetry in the right breast. Comparison is made to exams dated: 06/16/2024 ultrasound, 06/16/2024 mammogram - [facility], 03/24/2024 mammogram, 09/24/2023 mammogram, 03/19/2023 mammogram, and 03/19/2023 mammogram - [facility]. Color flow and real-time ultrasound of the right breast 7 o'clock and 10 o'clock regions were performed. Camacho scale images of the real-time examination were reviewed. There is a stable 0.8 cm x 0.6 cm x 0.6 cm oval cyst in the right breast at 7 o'clock anterior depth 3 cm from the nipple. This oval cyst is hypoechoic with internal echoes. Color flow imaging demonstrates that there is an adjacent vascularity. There also is a stable 0.8 cm x 0.7 cm x 0.4 cm oval cyst in the right breast at 10 o'clock anterior depth 3 cm from the nipple. This oval cyst is hypoechoic with internal echoes. This correlates with mammography findings. Color flow imaging demonstrates that there is no vascularity present. IMPRESSION: PROBABLY BENIGN The stable 0.8 cm oval cyst in the right breast at 7 o'clock anterior depth has a differential diagnosis of a complicated cyst or fat necrosis and is probably benign. The stable 0.8 cm oval cyst in the right breast at 10 o'clock anterior depth has a differential diagnosis of a complicated cyst or fat necrosis and is probably benign. Findings stable since 03/19/2023. Recommend follow-up mammogram and an ultrasound in approximately one year to demonstrate long-term stability. 04/16/2025. Exam findings were conveyed to the patient. Please see separately dictated right axillary ultrasound. Follow-up ultrasound in 6 months recommended. This exam was interpreted at Station ID: [id number]. Electronically Signed By: Peña Kim M.D. [facility] [place]/:06/16/2024 11:49:04 Entry: - 06/16/2024 16:14:14 letter sent: Followup Recommended ACR BI-RADS Category 3: Probably Benign
--- NOTE | 2024-06-16 09:10 | DI.MG.S_ITS ---
UNILATERAL RIGHT DIGITAL DIAGNOSTIC MAMMOGRAM 3D/2D: 06/16/2024 CLINICAL: Right axiallry pain. Comparison is made to exams dated: 03/24/2024 mammogram, 09/24/2023 mammogram, 03/19/2023 mammogram, 12/19/2021 mammogram, and 03/19/2023 ultrasound - [facility]. The breasts are heterogeneously dense, which may obscure small masses (category c / 51-75% glandular tissue). There is a stable oval focal asymmetry in the right breast at 7 o'clock anterior depth. There also is a stable oval focal asymmetry in the right breast at 10 o'clock anterior depth. Right breast post-operative findings are not significantly changed. No other significant masses or calcifications are seen in the breast. IMPRESSION: INCOMPLETE: NEED ADDITIONAL IMAGING EVALUATION No enlarged axillary nodes seen. Patient reports axillary swelling. Right breast post-operative findings are not significantly changed. Previous findings on outside imaging area stable. Right breast at 7 o'clock anterior depth focal asymmetry is indeterminate. Right breast at 10 o'clock anterior depth focal asymmetry is indeterminate. A targeted ultrasound is recommended and will immediately follow. This exam was interpreted at Station ID: [id number]. NOTE: For mammograms, a report in lay terms will be sent to the patient. Approximately 15% of breast malignancies will not be visualized mammographically. In the management of a palpable breast mass, a negative mammogram must not discourage biopsy of a clinically suspicious lesion. Electronically Signed By: Peña Kim M.D. [facility] [place]/:06/16/2024 11:50:53 letter sent: Additional Imaging Needed ACR BI-RADS Category 0: Incomplete: Need Additional Imaging Evaluation
== END ==
LOC: MAMMO 09:10
PROVIDERS: Family Provider Internal Medicine; PCP Family Medicine; Referring Provider Family Medicine; Visit Provider Family Medicine
DX: N60.01 Solitary cyst of right breast (principal); R92.2 Inconclusive mammogram; R92.333 Mammographic heterogeneous density, bilateral breasts; L90.5 Scar conditions and fibrosis of skin; M79.621 Pain in right upper arm; Z85.3 Personal history of malignant neoplasm of breast
CPT/HCPCS: 76642; 76882; 77065; G0279

== ENCOUNTER → 2024-07-14 15:45 | Outpatient (CLI) | payer MEDICARE, SELFPAY ==
--- NOTE | 2024-07-14 15:46 | DI.US.S_ITS ---
PROCEDURE: US ABDOMEN COMPLETE INDICATIONS: Upper abdominal pain TECHNIQUE: Real-time scanning was performed of the abdominal and retroperitoneal organs, with image documentation. COMPARISON: None. FINDINGS: Liver: Liver is normal in size and homogeneous in echotexture. Gallbladder: Cholecystectomy Common bile duct: 9.3 mm. Pancreas: Visualized portions of the pancreas are within normal limits. Spleen: Spleen is normal in size and homogeneous in echotexture. Kidneys: Kidneys are normal in size and echotexture. No hydronephrosis or nephrolithiasis. No solid mass lesions. Right renal cortical cyst 2.5 cm Aorta: Visualized aorta is unremarkable without aneurysm. Iliac Arteries: Proximal common iliac arteries are unremarkable. IVC: Intrahepatic inferior vena cava is patent. Miscellaneous: No free abdominal fluid. IMPRESSION: Cholecystectomy. No acute findings Approved by: Elroy Rowan M.D. on 07/15/2024 at 15:41
== END ==
PROVIDERS: Family Provider Internal Medicine; PCP Family Medicine; Referring Provider Family Medicine; Visit Provider Family Medicine
DX: R10.9 Unspecified abdominal pain (principal); Z90.49 Acquired absence of other specified parts of digestive tract
CPT/HCPCS: 76700

== ENCOUNTER 2024-09-30 06:51 | Day surgery (SDC) | payer MEDICARE, SELFPAY ==
--- NOTE | 2024-09-30 | PATH_ITS ---
[facility] Accession Number: [id number] No. of containers..03 Tissue . 01 Material submitted: . PART A: duodenum bulb - DUDOENAL BULB PART B: stomach - ANTRUM PART C: esophagus, E-G Junction - GE JUNCTION . 01 Diagnosis: A. DUODENAL BULB, BIOPSY: Histologically unremarkable duodenal mucosa. Negative for villous blunting and intraepithelial lymphocytosis. . B. STOMACH, ANTRUM, BIOPSY: Antral mucosa with mild reactive gastropathy. Negative for Helicobacter organisms and intestinal metaplasia. . C. GASTROESOPHAGEAL JUNCTION, BIOPSY: Squamous epithelium with mild reactive changes. Columnar component not present for evaluation. Negative for intraepithelial eosinophilia. MRV 10/06/2024 1211 Local . 01 Electronically signed: . Matilde Sorensen DO, Pathologist NPI- [id number] . 01 Gross description: . A. Received in formalin with two patient identifiers and duodenal bulb, are three elliott soft tissue fragments 0.3 to 0.5 cm in greatest dimension. Submitted in cassette A1. B. Received in formalin with two patient identifiers and antrum, are two elliott soft tissue fragments both measuring 0.4 cm in greatest dimension. Submitted in cassette B1. C. Received in formalin with two patient identifiers and GE junction, is a single elliott soft tissue fragment 0.4 cm in greatest dimension. Submitted in cassette C1. ([id number]) /CHAI 10/02/2024 2153 Local . 01 Pathologist provided ICD-10: R13.10 . 01 CPT . 688271, [id number], [id number] Specimen Comment: A courtesy copy of this report has been sent to [phone] Performed at: [address] [id number] MD Amos Bangura MD Phone: [phone]
[2024-09-30] MEDS: LACTATED RINGERS 1,000 ML 42 ML IV (07:00)
[2024-09-30 07:16] VITALS: BP 115/69; PULSE 60; RESP 14; TEMP 36.1; O2SAT 96
--- NOTE | 2024-09-30 07:34 | PM.HP.IH.1 ---
History of Present Illness History of Present Illness Date Patient Seen: 09/30/24 Time Patient Seen: 07:35 Chief complaint: EGD Narrative: Elena is a 79-year-old woman who presents with epigastric pain and dysphagia. See the office note from August for more details. [facility] Medical History Coccydynia Lumbar radiculopathy Lumbar spondylosis Dorsalgia Prediabetes Stenosis of carotid artery Hx of breast cancer Insomnia (~09/22/21) Osteoarthritis (~2004) Depression Anxiety (~1994) Osteopenia (~2007) Plantar warts (~1954) Chicken pox (~1951) Surgical History Anesthesia Status post cholecystectomy (~2003) Status post hysterectomy (~1991) Family History Father High cholesterol Mother Emphysema lung Social History marital status: number of children: 2 household members: none lives independently: Yes caregiver/support person: No housing: house Smoking Status: Never smoker second hand exposure: No alcohol intake: current substance use type: does not use Meds Home Medications and Allergies Home Medications Medication Instructions Recorded Confirmed Type calcium citrate 250 mg PO BID 02/07/20 08/09/24 History aspirin 81 mg tablet,delayed 81 mg PO DAILY 07/19/20 09/30/24 History release (Adult Aspirin Regimen) metoprolol succinate 50 mg 50 mg PO DAILY 08/08/23 09/30/24 History tablet,extended release 24 hr estradiol 0.01% (0.1 mg/gram) 1 g vaginal DAILY #42.5 grams 02/23/24 08/09/24 Rx vaginal cream levothyroxine 75 mcg tablet 75 mcg PO DAILY #90 tabs 06/30/24 08/09/24 Rx atorvastatin 10 mg tablet 10 mg PO QPM #90 tabs 08/06/24 08/09/24 Rx oxybutynin chloride 5 mg tablet 5 mg PO DAILY 09/29/24 09/29/24 History Allergies Allergy/AdvReac Type Severity Reaction Status Date / Time naproxen [From [facility]] Allergy Mild syncope Verified 08/09/24 15:03 episodes Exam Vital Signs (past 8 hours): - 09/30/24 07:16 Temperature 96.9 F L Pulse Rate 60 Respiratory Rate 14 Blood Pressure 115/69 Pulse Oximetry 96 Oxygen Delivery Method Room Air Oxygen Delivery Method Room Air Const General: No acute distress Assessment & Plan Assessment and plan (1) Gastroesophageal reflux disease: Qualifiers: Esophagitis presence: without esophagitis Qualified Code(s): K21.9 - Gastro-esophageal reflux disease without esophagitis Status: Chronic (2) Dysphagia: Qualifiers: Dysphagia type: esophageal phase Qualified Code(s): R13.19 - Other dysphagia Status: Acute Plan Esophagogastroduodenoscopy Time-Based Coding :: [TOTAL MINUTES] spent with patient and on the chart (including review of chart, obtaining history, exam, reviewing outside data, placing orders, documenting exam and treatment plan, and counseling patient) on [DATE]. [employer] Document charge(s): No
--- NOTE | 2024-09-30 07:54 | PM.OP.EGD ---
Operative Date/Time/Diagnoses Date of procedure: 09/30/24 Time of procedure: 07:54 Pre-op diagnosis: Dysphagia and GERD Post-op diagnosis: same Procedure & Clinicians Study performed: Esophagogastroduodenoscopy Same procedure as scheduled: Yes Surgeon: Angel Olmstead Procedure Notes Procedure in detail: Surgeon: Angel Olmstead MD Anesthesia: Chacha Irizarry MD A timeout was performed. A bite blocked was placed. The patient was positioned in the left lateral decubitus position. Anesthesia was administered. The endoscope was inserted through the bite block and passed through the esophagus and stomach and into the duodenum. No ulcers were noted. The duodenal bulb was mildly inflamed and biopsies were taken with cold forceps. The scope was withdrawn into the stomach. There was mild antritis and random biopsies were taken from the antrum with cold forceps. The rest of the stomach was normal. The scope was retroflexed and no clinically significant hiatal hernia was noted. The scope was withdrawn into the esophagus and there was mild inflammation near the GE junction and random biopsies were taken with cold forceps. The remainder of the esophagus was normal. The scope was withdrawn. The patient was awakened and brought to recovery. Sedation time: 7 minutes Findings: Mild inflammation of the GE junction, antrum and duodenal bulb Post-procedure Disposition: PACU
[2024-09-30 08:02] VITALS: BP 123/61; PULSE 62; RESP 17; TEMP 36.4; O2SAT 97
[2024-09-30 08:07] VITALS: BP 120/74; PULSE 59; RESP 17; O2SAT 96
[2024-09-30 08:12] VITALS: BP 124/72; PULSE 55; RESP 17; O2SAT 96
[2024-09-30 08:25] VITALS: BP 131/75; PULSE 53; RESP 18; TEMP 36.4; O2SAT 96
== END 2024-09-30 08:58 | disposition home or self-care (01) ==
PROVIDERS: Family Provider Internal Medicine; PCP Family Medicine; Referring Provider Surgery; Visit Provider Surgery
PROC: 0DJ08ZZ Inspection of Upper Intestinal Tract, Via Natural or Artificial Opening Endoscopic (ICD-10-PCS; CPT 43239; principal; 2024-09-30 07:45)
DX: R13.10 Dysphagia, unspecified (principal); K21.9 Gastro-esophageal reflux disease without esophagitis; K29.50 Unspecified chronic gastritis without bleeding; K20.90 Esophagitis, unspecified without bleeding; K31.9 Disease of stomach and duodenum, unspecified
CPT/HCPCS: 43239; J2704

== ENCOUNTER → 2024-10-16 08:15 | Outpatient (CLI) | payer MEDICARE, SELFPAY ==
[2024-10-16 09:17] LABS: Add Manual Diff / Slide Review NO; Basophils Absolute Auto 100 /uL (0-100); Basophils Percent Auto 0.7 % (0-2); Eosinophils Absolute Auto 200 /uL (0-450); Eosinophils Percent Auto 2.8 % (2-4); Hematocrit 40.4 % (36-46); Hemoglobin 13.8 g/dL (12.0-16.0); Lymphocytes Absolute Auto 3100 /uL (1100-4500); Lymphocytes Percent Auto 42.5 % (25-40); Mean Corpuscular HGB Conc 34.1 % (30-36); Mean Corpuscular Hemoglobin 30.8 PG (26-34); Mean Corpuscular Volume 90.5 fL (80-100); Monocytes Absolute Auto 600 /uL (0-900); Monocytes Percent Auto 8.7 % (3-14); Neutrophils Absolute Auto 3300 /uL (1500-7000); Neutrophils Percent Auto 45.3 % (50-75); Platelet Count 205 X10^3/uL (150-400); Red Blood Cell Count 4.46 X10^6/uL (4.0-5.2); Red Cell Distribution Width 14.4 % (11.6-14.8); White Blood Cell Count 7.2 X10^3/uL (4.5-11.0)
[2024-10-16 09:33] LABS: Iron 86 ug/dL (37-170)
[2024-10-16 10:04] LABS: Thyroid Stimulating Hormone 2.69 uIU/mL (0.47-4.68)
[2024-10-16 10:08] LABS: Ferritin 80 ng/mL (11-264)
== END ==
PROVIDERS: Family Provider Internal Medicine; PCP Family Medicine; Referring Provider Family Medicine; Visit Provider Family Medicine
DX: L65.9 Nonscarring hair loss, unspecified (principal)
CPT/HCPCS: 36415; 82728; 83540; 84443; 85025

== ENCOUNTER → 2024-10-19 11:59 | Outpatient (CLI) | payer MEDICARE, SELFPAY | LOC: LAB 12:00 | PROVIDERS: PCP Family Medicine; Visit Provider Family Medicine | DX: R35.0 Frequency of micturition (principal) | CPT/HCPCS: 87077; 87086; 87186 ==

== ENCOUNTER → 2024-11-16 17:26 | Outpatient (CLI) | payer MEDICARE, SELFPAY | PROVIDERS: PCP Family Medicine; Visit Provider Chiropractor | DX: R30.0 Dysuria (principal) | CPT/HCPCS: 87077; 87086; 87186 ==

== ENCOUNTER → 2024-12-24 08:42 | Outpatient (CLI) | payer MEDICARE, SELFPAY | LOC: LAB 08:43 | PROVIDERS: PCP Family Medicine; Visit Provider Chiropractor | DX: R30.9 Painful micturition, unspecified (principal) | CPT/HCPCS: 87077; 87086; 87186 ==

== ENCOUNTER → 2024-12-28 10:45 | Outpatient (CLI) | payer MEDICARE, SELFPAY ==
--- NOTE | 2024-12-28 10:46 | DI.US.S_ITS ---
US axillary only rt: 12/28/2024. BI-RADS: 2 CLINICAL: 79-year old female for right diagnostic breast ultrasound. Tyrer- Cuzick lifetime risk of 1.7%. The patient presents for a follow-up. Patient is otherwise asymptomatic. PRIOR EXAMS 06/16/2024, 03/19/2023, 12/19/2021. ULTRASOUND TECHNIQUE Real-time hawley scale and color doppler imaging of the area of clinical interest was performed with image documentation. Exam is limited to the right axilla. ULTRASOUND FINDINGS Right: Axilla: There is a region of scar tissue. No abnormal lymph nodes are seen in the axilla. IMPRESSION: Right * No evidence of malignancy with benign findings. RECOMMENDATIONS Right * Recommend continued mammogram and ultrasound follow up of additional findings in the right breast (due May 2025) per the report from 06/16/2024. The patient is also due back for screening of the contralateral breast at that time. COMMENTS: Findings and recommendations were conveyed to the patient during today's evaluation. OVERALL ASSESSMENT CATEGORY BI-RADS-2: Benign. ELECTRONICALLY SIGNED: Brittny Rollins M.D. on 12/28/2024 at 01:17:16 PM PT Interpreting Station ID: [id number]
== END ==
LOC: US 10:45
PROVIDERS: PCP Family Medicine; Referring Provider Family Medicine; Visit Provider Family Medicine
DX: R92.8 Other abnormal and inconclusive findings on diagnostic imaging of breast (principal); Z85.3 Personal history of malignant neoplasm of breast
CPT/HCPCS: 76882

== ENCOUNTER → 2025-03-16 07:23 | Outpatient (CLI) | payer MEDICARE, SELFPAY ==
[2025-03-16 07:54] LABS: Add Manual Diff / Slide Review NO; Hematocrit 40.0 % (36-46); Hemoglobin 13.8 g/dL (12.0-16.0); Lymphocytes Absolute Auto 3100 /uL (1100-4500); Mean Corpuscular HGB Conc 34.4 % (30-36); Mean Corpuscular Hemoglobin 30.6 PG (26-34); Mean Corpuscular Volume 88.8 fL (80-100); Platelet Count 208 X10^3/uL (150-400)
[2025-03-16 08:04] LABS: Hemoglobin A1C% w Est Avg Glu 5.9 % (4.0-6.0)
[2025-03-16 08:24] LABS: Alanine Aminotransferase 34 IU/L (<35); Albumin 4.1 g/dL (3.5-5.0); Albumin Globulin Ratio 1.6 (1.0-2.8); Alkaline Phosphatase 58 U/L (38-126); Blood Urea Nitrogen 22 mg/dL (7-17); Calcium 8.7 mg/dL (8.4-10.2); Carbon Dioxide 26 mmol/L (22-32); Chloride 106 mmol/L (98-107); Cholesterol 135 mg/dL (140-199); Estimated Glomerular Filt Rate > 60 mL/min (>60); Globulin 2.6 g/dL (1.7-4.1); Glucose 107 mg/dL (70-99); HDL Cholesterol 81 mg/dL (40-60); HEMOLYSIS < 15 (0-50); Potassium 4.5 mmol/L (3.4-5.1); Sodium 139 mmol/L (137-145); Total Protein 6.7 g/dL (6.3-8.2); Triglycerides 117 mg/dL (35-150)
[2025-03-16 08:25] LABS: Microalbumi Creatinin Ratio Ur 8.0 ug/mg CR (<30)
[2025-03-16 08:50] LABS: Thyroid Stimulating Hormone 0.334 uIU/mL (0.47-4.68)
== END ==
PROVIDERS: PCP Family Medicine; Referring Provider Family Medicine; Visit Provider Family Medicine
DX: I10 Essential (primary) hypertension (principal); R73.03 Prediabetes; R39.9 Unspecified symptoms and signs involving the genitourinary system; E03.9 Hypothyroidism, unspecified
CPT/HCPCS: 36415; 80053; 80061; 82043; 82570; 83036; 84443; 85025; 87086

== ENCOUNTER → 2025-03-25 09:38 | Outpatient (CLI) | payer MEDICARE, SELFPAY ==
--- NOTE | 2025-03-25 09:39 | DI.RAD.S_ITS ---
PROCEDURE: XR LUMBAR SPINE 2-3V
--- NOTE | 2025-03-25 09:39 | DI.RAD.S_ITS ---
PROCEDURE: XR KNEE RT 3V
== END ==
PROVIDERS: PCP Family Medicine; Referring Provider Family Medicine; Visit Provider Family Medicine
DX: M17.11 Unilateral primary osteoarthritis, right knee (principal); M47.816 Spondylosis without myelopathy or radiculopathy, lumbar region; M43.16 Spondylolisthesis, lumbar region; M43.17 Spondylolisthesis, lumbosacral region; M25.569 Pain in unspecified knee; M54.9 Dorsalgia, unspecified
CPT/HCPCS: 72100; 73562